=== PATIENT | male | born 1950 | race Two or more races ===

== ENCOUNTER 2024-03-22 12:25 | Outpatient (AMB) | payer MEDICARE, SELFPAY ==
[2024-03-22 12:34] VITALS: BP 120/70; PULSE 67; O2SAT 97; BMI 27.8
--- NOTE | 2024-03-22 12:34 | MHC.PC.OV ---
Vital Signs 03/22/24 12:34 Height 5 ft 3 in Weight 157 lb 2 oz BMI 27.8 BP 120/70 Blood Pressure Location Lt brachial Position Sitting Pulse 67 Pulse Source Pulse Oximeter Pulse Oximetry (%) 97 Oxygen Delivery Method Room Air Intake Visit Reasons: New Pt, est care Intake Note: Patient is here as a new patient looking to establish care. Rock Splitter Required: No Allergies No Known Allergies Allergy (Verified 03/22/24 12:56) Medication List - Last Reconciled 03/22/24 by MARÍA Noriega- aspirin 81 mg PO DAILY atorvastatin 80 mg PO DAILY glipizide 5 mg PO BID metformin 500 mg PO DAILY metoprolol tartrate 25 mg PO DAILY omeprazole 20 mg PO DAILY Tobacco use date assessed: 03/22/24 Fall risk assessment: No Falls in past year Last assessed Fall Risk: 03/22/24 Dental Screening Dental Screen Date: 03/22/24 Did you have a dental visit in the last 12 months?: No Did you have a dental problem in the last 6 months where you did not have access to dental care?: No Was dental information given to patient?: Yes HPI HPI Comments History of Present Illness Details 73-year-old male with chronic back pain with radiculopathy, DM2, diabetic nephropathy, CKD3a, HTN, carcinoma in situ of prostate, HLD, PVD, daily etoh use Health Maintenance: Colon reports done 1 year ago, reports WNL PSA managed by [facility] Specialists: Nephro Dr Gan [facility] last visit 2 months ago [facility] last visit 1 month ago, q 6 mo visits Opt - [facility], Dr Abreu -- reports exam in last year, negative for retinopathy - will request report Here today to establish care. Had a change of insurance and has old primary care provider which was through [facility] no longer accepts his insurance. He does provide me with an office note from February of 2023. Otherwise I do not have any records on him prior to today's visit. Be that as it may he seems to be a good historian. He reports that he takes all medications as directed. However has run out of some of his medications. He is active with his specialist. Does not need any referrals placed. It is overdue for blood tests in his willing to fasting get these done before the next office visit. [facility] Medical History (Updated 03/22/24 @ 15:37 by TODD Noriega) Radiculopathy affecting upper extremity Lumbar strain Sciatica, left side Diabetes Cervicalgia Surgical History History of prostate surgery Family History Father Diabetes Mother Diabetes Social History Household Members: Spouse Household Members Other:: dog Housing: Apartment Are you a primary primary care physician to a significant other at home: No Do you presently have visiting nurse or other home services: No 75 years or older and lives alone: No Alcohol intake: current Alcohol intake frequency: holidays/special occasions only Alcohol type: beer Patient Tobacco Use Status: Never used Tobacco e-Cigarette/Vaping Use: Never Used service: No Current occupational status: employed and retired 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 1. Little interest or pleasure in doing things: not at all 2. Feeling down, depressed, or hopeless: not at all 3. Trouble falling or staying asleep, or sleeping too much: not at all 4. Feeling tired or having little energy: not at all 5. Poor appetite or overeating: not at all 6. Feeling bad about yourself - or that you are a failure or have let yourself or your family down: not at all 7. Trouble concentrating on things, such as reading the newspaper or watching television: not at all 8. Moving or speaking so slowly that other people could have noticed. Or the opposite - being so fidgety or restless that you have been moving around a lot more than usual: not at all 9. Thoughts that you would be better off or of hurting yourself in some way: not at all Total score: 0 Depression Screening Interpretation: Negative Depression Screening Done: Yes 51566 - PHQ-9 Billing: Yes Source: Developed by Drs. Adeel Lal, Avani Romano, Zane Brown and colleagues, with an educational octavia from [employer]. Thrive Questionnaire I am a: Patient What is your living situation today?: I have a steady place to live Within the past 12 months, did the food you bought not last and you didn't have the money to get more?: Never true Within the past 12 months, did you worry whether your food would run out before you got money to buy more?: Never true Do you have trouble paying for medicines?: No Do you have trouble getting transportation to medical appointments?: No Do you have trouble paying your heating and electricity bill?: No Do you have trouble taking care of your child, family member or friend?: No Do you have trouble with day-to-day activities such as bathing, preparing meals, shopping, managing finances, etc.?: No Are you currently unemployed and looking for a job?: No Are you interested in more education?: No Please select the resources that you would like help with: None Currently or been in a relationship where the following occur: no concerns reported THRIVE Score: 0 AUDIT C Alcohol Use Questionnaire (AUDIT-C) 1. How often do you have a drink containing alcohol?: 4 or more times a week 2. How many drinks containing alcohol do you have on a typical day when you are drinking?: 3 or 4 3. How often do you have six or more drinks on one occasion?: Monthly Total Score: 7 Score Reviewed/Action Taken: Yes ZACH-7 AMB Questionnaire ZACH-7 Date ZACH - 7 assessed: 03/22/24 Feeling nervous, anxious, or on edge: 0 = Not at all Not being able to stop or control worryin = Not at all Worrying too much about different things: 0 = Not at all Trouble relaxin = Not at all Being so restless that it is hard to sit still: 0 = Not at all Becoming easily annoyed or irritable: 0 = Not at all Feeling afraid as if something awful might happen: 0 = Not at all Total ZACH-7 score (0-4 normal; 5-9 mild; 10-14 moderate; 15-21 severe): 0 Source: Developed by Avani Pinto Kurt Kroenke and colleagues, with an educational octavia from [employer]. ZACH-7 Assessment Billing ZACH-7 Assessment Tool: ZACH-7 Assessment 29414 Review of Systems Const All systems reviewed & are unremarkable except as noted in HPI and below Physical exam (Primary Care) Vital Signs: Last Vital Signs Pulse 67 03/22/24 12:34 BP 120/70 03/22/24 12:34 Pulse Ox 97 03/22/24 12:34 Oxygen Delivery Method Room Air 03/22/24 12:34 BMI result Body Mass Index 27.8 Tobacco/Smoking Status: Tobacco use Status Tobacco use date assessed 03/22/24 03/22/24 12:50 Patient Tobacco Use Status Never used Tobacco 03/22/24 12:50 e-Cigarette/Vaping Use Never Used 03/22/24 12:50 PHQ-9: PHQ-9 Score PHQ-9: Total score 0 03/22/24 13:15 Depression Screening Interpretation: Negative Currently or been in a relationship where the following occur: no concerns reported Const Other: awake alert, appears younger than stated age, very pleasant scleras nonicteric bilat RRR, 1/6 murmur left sternal border LS CTAB Abd soft, nontender BLE skin intact, hairless, varicose veins Assessment and Plan Assessment & Plan (1) Diabetes mellitus type 2 with complications: Comment: Patient wishes to have labs completed at [facility]. Hemoglobin A1c ordered today. At this time continue metformin 500 mg p.o. b.i.d.. Diabetic eye exam completed in 2022. Negative for retinopathy. Report requested. Code(s): E11.8 - Type 2 diabetes mellitus with unspecified complications (2) Hyperlipidemia: Comment: Goal LDL less than 70 currently on atorvastatin 80 mg p.o. daily. Update labs and return to office to discuss results and titrate statin to goal LDL. On daily aspirin 81 mg Code(s): E78.5 - Hyperlipidemia, unspecified Qualifiers: Hyperlipidemia type: mixed hyperlipidemia Qualified Code(s): E78.2 - Mixed hyperlipidemia (3) PVD (peripheral vascular disease): Comment: Based on physical exam. Skin intact. Continue statin, aspirin, blood pressure control, diabetes control. Code(s): I73.9 - Peripheral vascular disease, unspecified (4) Carcinoma in situ of prostate: Comment: Current, active, managed by [facility]. We will have to get records to further document. Code(s): D07.5 - Carcinoma in situ of prostate (5) Diabetes mellitus with stage 3a chronic kidney disease, without long-term current use of insulin: Comment: Followed by Nephrology. Update labs today. On losartan 25 mg p.o. daily continue Code(s): E11.22 - Type 2 diabetes mellitus with diabetic chronic kidney disease; N18.31 - Chronic kidney disease, stage 3a Qualifiers: Diabetes mellitus type: type 2 Qualified Code(s): E11.22 - Type 2 diabetes mellitus with diabetic chronic kidney disease; N18.31 - Chronic kidney disease, stage 3a (6) Hypertension complicating diabetes: Comment: Goal less than 130/80 currently at goal on metoprolol tartrate 25 mg p.o. b.i.d. and losartan 25 mg p.o. daily. Continue. Code(s): E11.59 - Type 2 diabetes mellitus with other circulatory complications; I15.2 - Hypertension secondary to endocrine disorders (7) EtOH dependence: Comment: Currently on thiamine and B12. Daily drinker. No complications at the current time. Code(s): F10.20 - Alcohol dependence, uncomplicated Qualifiers: Substance use status: uncomplicated Qualified Code(s): F10.20 - Alcohol dependence, uncomplicated Plan: This note is constructed using voice recognition software. While every effort has been made to ensure accuracy in petroleum inspector supervisor, still errors may have been included Sometimes, these errors may affect the content or meaning of the given sentence . Total time spent caring for the patient today was 60 minutes. This includes time spent before the visit reviewing the chart, time spent during the visit, and time spent after the visit on documentation Orders: Orders Lipid Panel Today E11.8 - Type 2 diabetes mellitus with unspecified complications Comprehensive [place]. Panel Fast Today E11.8 - Type 2 diabetes mellitus with unspecified complications TSH reflex Free T4 Today E11.8 - Type 2 diabetes mellitus with unspecified complications Vitamin D 1,25 dihydroxy Today E11.8 - Type 2 diabetes mellitus with unspecified complications Complete Blood Count no Diff Today E11.8 - Type 2 diabetes mellitus with unspecified complications Hemoglobin A1c Today E11.8 - Type 2 diabetes mellitus with unspecified complications Microalbumin, Random (w Creat) Today E11.8 - Type 2 diabetes mellitus with unspecified complications Vitamin B12 and Folate Today E11.8 - Type 2 diabetes mellitus with unspecified complications IRON PROFILE Today E11.8 - Type 2 diabetes mellitus with unspecified complications Medications: New magnesium oxide 400 mg PO DAILY 90 tabs 0RF thiamine HCl (vitamin B1) 100 mg PO DAILY 90 tabs 0RF losartan 25 mg PO DAILY 90 tabs 0RF cyanocobalamin (vitamin B-12) 2,000 mcg (2 x 1,000 mcg) PO DAILY 180 caps 0RF atorvastatin 80 mg PO DAILY 90 tabs 0RF metformin 500 mg PO BID 180 tabs 0RF Changed From metoprolol tartrate 25 mg PO DAILY To metoprolol tartrate 25 mg PO BID Patient Instructions: Return to office in 2-3 weeks to follow up on your lab results. If you are getting them done at an outside facility please be sure to bring a copy of the lab results with you. Take all medications as directed. Coding Level of Care Code New Pt Level 5 (55664) Diagnoses Diabetes mellitus type 2 with complications E11.8 Mixed hyperlipidemia E78.2 Hyperlipidemia type: mixed hyperlipidemia PVD (peripheral vascular disease) I73.9 Carcinoma in situ of prostate D07.5 Type 2 diabetes mellitus with stage 3a chronic kidney disease, without long-term current use of insulin E11.22; N18.31 Diabetes mellitus type: type 2 Hypertension complicating diabetes E11.59; I15.2 Uncomplicated alcohol dependence F10.20 Substance use status: uncomplicated Additional Codes ZACH-7 Assessment Billing - ZACH-7 Assessment Tool: ZACH-7 Assessment 09977 ([id number])
== END 2024-03-22 13:21 | disposition home or self-care (01) ==
PROVIDERS: PCP Nurse Practitioner Family; Visit Provider Nurse Practitioner Family
DX: E11.8 Type 2 diabetes mellitus with unspecified complications (principal); E11.22 Type 2 diabetes mellitus with diabetic chronic kidney disease; N18.31 Chronic kidney disease, stage 3a; I73.9 Peripheral vascular disease, unspecified; E11.59 Type 2 diabetes mellitus with other circulatory complications; F10.20 Alcohol dependence, uncomplicated; E78.2 Mixed hyperlipidemia; D07.5 Carcinoma in situ of prostate; I15.2 Hypertension secondary to endocrine disorders
CPT/HCPCS: 99215

== ENCOUNTER 2024-03-31 11:36 | Outpatient (REF) | payer MEDICARE, SELFPAY ==
[2024-03-31 14:38] LABS: Hematocrit 35.9 % (42.0-52.0); Hemoglobin 12.1 g/dl (14.0-18.0); Mean Corpuscular HGB Conc 33.7 g/dl (31.0-36.0); Mean Corpuscular Hemoglobin 31.5 pg (27.0-33.0); Mean Corpuscular Volume 93.5 fL (80.0-98.0); Platelet Count 237 X10*3/uL (160-400); Red Blood Count 3.84 X10*6/uL (4.60-5.80); Red Cell Distribution Width 12.4 % (11.0-16.0); White Blood Count 7.3 X10*3/uL (4.8-10.8)
[2024-03-31 14:49] LABS: Estimated Average Glucose 186 mg/dL; Hemoglobin A1c % 8.1 % (<6.0)
[2024-03-31 14:56] LABS: Alanine Aminotransferase 28 U/L (0-40); Albumin Level 4.3 g/dL (3.5-5.0); Alkaline Phosphatase 96 U/L (39-117); Anion Gap 13 (12-20); Aspartate Amino Transferase 54 U/L (5-37); Bilirubin Total 1.2 mg/dL (0.0-1.0); Blood Urea Nitrogen 17 mg/dL (9-16); Calcium 9.2 mg/dL (8.4-10.2); Carbon Dioxide 26 mmol/L (22-29); Chloride 104 mmol/L (96-108); Cholesterol 140 mg/dL (<200); Estimated Glomerular Filt Rate 57; Glucose Fasting 157 mg/dL (60-99); HDL Cholesterol 58 mg/dL (>40); Iron 113 mcg/dL (45-160); LDL Cholesterol Calculated 66 mg/dL (<100); Percent Iron Saturation 39 % (15-50); Potassium 4.1 mmol/L (3.3-5.1); Sodium 139 mmol/L (135-145); Total Iron Binding Capacity 289 mcg/dL (228-428); Total Protein 7.1 g/dL (6.5-8.0); Triglycerides 80 mg/dL (<150); Unsaturated Iron Binding 176 ug/dL
[2024-03-31 15:12] LABS: TSH reflex Free T4 2.51 uIU/mL (0.32-4.0)
[2024-03-31 15:19] LABS: Microalbum/Creatinine Ratio Ur 46.3 ug/mg cr (<30)
[2024-03-31 15:26] LABS: Folate 6.7 ng/mL (> or = 4.0); Vitamin B12 909 pg/mL (200-900)
[2024-04-04 16:08] LABS: VITAMIN D (1,25 OH) D3 50 pg/mL; Vit D (1,25-Dihydroxy) Total 50 pg/mL (18-72); Vitamin D (1,25 OH) D2 <8 pg/mL
== END 2024-03-31 11:37 | disposition home or self-care (01) ==
LOC: HO.WFDLDS 11:36
PROVIDERS: Visit Provider Nurse Practitioner Family
DX: E11.8 Type 2 diabetes mellitus with unspecified complications (principal)
CPT/HCPCS: 36415; 80053; 80061; 82043; 82570; 82607; 82652; 82746; 83036; 83540; 84443; 85027

== ENCOUNTER 2024-04-07 09:32 | Outpatient (AMB) | payer MEDICARE, SELFPAY ==
--- NOTE | 2024-04-07 09:37 | A.OFFPC_ITS ---
Vital Signs 04/07/24 09:38 Height 5 ft 3 in Weight 156 lb BMI 27.6 BP 124/70 Blood Pressure Location Rt brachial Position Sitting Respiration 14 Pulse 71 Pulse Source Pulse Oximeter Temp 97.7 F Temp Source Temporal Artery Scan Pulse Oximetry (%) 99 Oxygen Delivery Method Room Air Intake Visit Reasons: 2 weeks w me 30 min fu labs Bit Welder Required: No Accompanied by: Self / Same As Patient Allergies No Known Allergies Allergy (Verified 04/07/24 10:13) Medication List - Last Reconciled 04/07/24 by Ann Carr, ROLL FORM OPERATOR- aspirin 81 mg PO DAILY atorvastatin 80 mg PO DAILY cyanocobalamin (vitamin B-12) 2,000 mcg (2 x 1,000 mcg) PO DAILY losartan 25 mg PO DAILY magnesium oxide 400 mg PO DAILY metformin 500 mg PO BID metoprolol tartrate 25 mg PO BID omeprazole 20 mg PO DAILY thiamine HCl (vitamin B1) 100 mg PO DAILY Tobacco use date assessed: 03/22/24 Last assessed Fall Risk: 04/07/24 Dental Screening Dental Screen Date: 03/22/24 HPI HPI Comments History of Present Illness Details 73-year-old male with chronic back pain with radiculopathy, DM2, diabetic nephropathy, CKD3a, HTN, carcinoma in situ of prostate, HLD, PVD, daily etoh us e, b12 def, iron def anemia Health Maintenance: Colon reports done 1 year ago, reports WNL PSA managed by [facility] Specialists: Nephro Dr Gan [facility] last visit 2 months ago [facility] last visit 1 month ago, q 6 mo visits [facility], Dr Abreu -- reports exam in last year, negative for retinopathy - will request report Here today to follow up on chronic conditions as well as review his labs. Labs were lower reviewed with him today. He reports tolerance and compliance with all of his medications since last office visit. Labs from 03/31/2024 show low anemia RBC 3.84, hemoglobin 12.1, hematocrit 35.9, remote MCV, RDW, normal iron profile normal lytes, BUN 17, creatinine 1.24, EGFR 57, hemoglobin A1c 8.1%, elevated total bilirubin 1.2, AST elevated 54, normal ALT 28, normal alk phos, normal lipid profile with LDL 66, B12 909, normal folate, TSH within normal limits, elevated urine microalbumin creatinine ratio of 46.3, vitamin-D normal Plan I would like to start him on Farxiga or Jardiance for renal protection however his insurance does not cover this medication. He has already on an Arb. He is managed by Nephrology routinely. The goal will be to continue to control his diabetes. The A1c is 8.1%. On metformin 500 mg p.o. b.i.d.. He has been without his diabetic medications for a few weeks prior to the lab draw. Therefore I would suspect that his A1c is actually better than this. However this A1c is also in the setting of anemia. He has known B12 deficiency. He has taking a vitamin B12 supplement as ordered. Well as iron profile is normal he does have anemia. This certainly could be anemia of chronic disease versus iron deficiency. I will trial him on iron. Advised him to titrate to reduce abdominal symptoms. otherwise cont all meds as directed. Repeat fasting labs 1 week before his next office visit which will be in about 4 months. Return to the office sooner should you need anything. [facility] Medical History Radiculopathy affecting upper extremity Lumbar strain Sciatica, left side Diabetes Cervicalgia Surgical History History of prostate surgery Family History Father Diabetes Mother Diabetes Social History Household Members: Spouse Household Members Other:: dog Housing: Apartment Are you a primary care consultant to a significant other at home: No Do you presently have visiting nurse or other home services: No 75 years or older and lives alone: No Alcohol intake: current Alcohol intake frequency: holidays/special occasions only Alcohol type: beer Patient Tobacco Use Status: Never used Tobacco e-Cigarette/Vaping Use: Never Used service: No Current occupational status: employed and retired 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 Adeel Lal, Avani Romano, Zane Brown and colleagues, with an educational octavia from [employer]. Review of Systems Const All systems reviewed & are unremarkable except as noted in HPI and below Physical exam (Primary Care) Vital Signs: Last Vital Signs Temp 97.7 F 04/07/24 09:38 Pulse 71 04/07/24 09:38 Resp 14 04/07/24 09:38 BP 124/70 04/07/24 09:38 Pulse Ox 99 04/07/24 09:38 Oxygen Delivery Method Room Air 04/07/24 09:38 BMI result Body Mass Index 27.6 Tobacco/Smoking Status: Tobacco use Status Tobacco use date assessed 03/22/24 04/07/24 09:44 Patient Tobacco Use Status Never used Tobacco 04/07/24 09:44 e-Cigarette/Vaping Use Never Used 04/07/24 09:44 Const Other: awake alert, appears younger than stated age, very pleasant scleras nonicteric bilat RRR, 1/6 murmur left sternal border LS CTAB Abd soft, nontender BLE skin intact, hairless, varicose veins Assessment and Plan Assessment & Plan (1) Diabetes mellitus type 2 with complications: Comment: At this time continue metformin 500 mg p.o. b.i.d.. Diabetic eye exam completed in 2022. Negative for retinopathy. Report requested. Code(s): E11.8 - Type 2 diabetes mellitus with unspecified complications (2) Hyperlipidemia: Comment: Goal LDL less than 70 currently on atorvastatin 80 mg p.o. daily. On daily aspirin 81 mg Code(s): E78.5 - Hyperlipidemia, unspecified Qualifiers: Hyperlipidemia type: mixed hyperlipidemia Qualified Code(s): E78.2 - Mixed hyperlipidemia (3) Diabetes mellitus with stage 3a chronic kidney disease, without long-term current use of insulin: Comment: Followed by Nephrology. On losartan 25 mg p.o. daily continue Code(s): E11.22 - Type 2 diabetes mellitus with diabetic chronic kidney disease; N18.31 - Chronic kidney disease, stage 3a Qualifiers: Diabetes mellitus type: type 2 Qualified Code(s): E11.22 - Type 2 diabetes mellitus with diabetic chronic kidney disease; N18.31 - Chronic kidney disease, stage 3a (4) Hypertension complicating diabetes: Comment: Goal less than 130/80 currently at goal on metoprolol tartrate 25 mg p.o. b.i.d. and losartan 25 mg p.o. daily. Continue. Code(s): E11.59 - Type 2 diabetes mellitus with other circulatory complications; I15.2 - Hypertension secondary to endocrine disorders (5) B12 deficiency: Code(s): E53.8 - Deficiency of other specified B group vitamins (6) Iron deficiency anemia: Code(s): D50.9 - Iron deficiency anemia, unspecified Qualifiers: Iron deficiency anemia type: other iron deficiency Qualified Code(s): D50.8 - Other iron deficiency anemias Orders: Orders Comprehensive [place]. Panel Fast 06/26/24 D50.9 - Iron deficiency anemia, unspecified, E11.22 - Type 2 diabetes mellitus with diabetic chronic kidney disease, E11.59 - Type 2 diabetes mellitus with other circulatory complications, E11.8 - Type 2 diabetes mellitus with unspecified complications, E53.8 - Deficiency of other specified B group vitamins, E78.2 - Mixed hyperlipidemia, I15.2 - Hypertension secondary to endocrine disorders, N18.31 - Chronic kidney disease, stage 3a IRON PROFILE 06/26/24 D50.9 - Iron deficiency anemia, unspecified, E11.22 - Type 2 diabetes mellitus with diabetic chronic kidney disease, E11.59 - Type 2 diabetes mellitus with other circulatory complications, E11.8 - Type 2 diabetes mellitus with unspecified complications, E53.8 - Deficiency of other specified B group vitamins, E78.2 - Mixed hyperlipidemia, I15.2 - Hypertension secondary to endocrine disorders, N18.31 - Chronic kidney disease, stage 3a Vitamin B12 and Folate 06/26/24 D50.9 - Iron deficiency anemia, unspecified, E11.22 - Type 2 diabetes mellitus with diabetic chronic kidney disease, E11.59 - Type 2 diabetes mellitus with other circulatory complications, E11.8 - Type 2 diabetes mellitus with unspecified complications, E53.8 - Deficiency of other specified B group vitamins, E78.2 - Mixed hyperlipidemia, I15.2 - Hypertension secondary to endocrine disorders, N18.31 - Chronic kidney disease, stage 3a Lipid Panel 06/26/24 D50.9 - Iron deficiency anemia, unspecified, E11.22 - Type 2 diabetes mellitus with diabetic chronic kidney disease, E11.59 - Type 2 diabetes mellitus with other circulatory complications, E11.8 - Type 2 diabetes mellitus with unspecified complications, E53.8 - Deficiency of other specified B group vitamins, E78.2 - Mixed hyperlipidemia, I15.2 - Hypertension secondary to endocrine disorders, N18.31 - Chronic kidney disease, stage 3a Hemoglobin A1c 06/26/24 D50.9 - Iron deficiency anemia, unspecified, E11.22 - Type 2 diabetes mellitus with diabetic chronic kidney disease, E11.59 - Type 2 diabetes mellitus with other circulatory complications, E11.8 - Type 2 diabetes mellitus with unspecified complications, E53.8 - Deficiency of other specified B group vitamins, E78.2 - Mixed hyperlipidemia, I15.2 - Hypertension secondary to endocrine disorders, N18.31 - Chronic kidney disease, stage 3a Complete Blood Count no Diff 06/26/24 D50.9 - Iron deficiency anemia, unspecified, E11.22 - Type 2 diabetes mellitus with diabetic chronic kidney disease, E11.59 - Type 2 diabetes mellitus with other circulatory complications, E11.8 - Type 2 diabetes mellitus with unspecified complications, E53.8 - Deficiency of other specified B group vitamins, E78.2 - Mixed hyperlipidemia, I15.2 - Hypertension secondary to endocrine disorders, N18.31 - Chronic kidney disease, stage 3a Medications: New ferrous sulfate 325 mg PO DAILY 90 tabs 0RF Patient Instructions: Plan I would like to start him on Farxiga or Jardiance for renal protection however his insurance does not cover this medication. He has already on an Arb. He is managed by Nephrology routinely. The goal will be to continue to control his diabetes. The A1c is 8.1%. On metformin 500 mg p.o. b.i.d.. He has been without his diabetic medications for a few weeks prior to the lab draw. Therefore I would suspect that his A1c is actually better than this. However this A1c is also in the setting of anemia. He has known B12 deficiency. He has taking a vitamin B12 supplement as ordered. Well as iron profile is normal he does have anemia. This certainly could be anemia of chronic disease versus iron deficiency. I will trial him on iron. Advised him to titrate to reduce abdominal symptoms. otherwise cont all meds as directed. Repeat fasting labs 1 week before his next office visit which will be in about 4 months. Return to the office sooner should you need anything. RTO 4 months, with fasting labs done 1 week before next appt New medication: Ferrous Sulfate to treat anemia. Take every day with food. This can cause stomach upset. If this happens, reduce the frequency. Otherwise cont all meds as directed. Coding Level of Care Code Est Pt Level 4 (08818) Diagnoses Diabetes mellitus type 2 with complications E11.8 Mixed hyperlipidemia E78.2 Hyperlipidemia type: mixed hyperlipidemia Type 2 diabetes mellitus with stage 3a chronic kidney disease, without long-term current use of insulin E11.22; N18.31 Diabetes mellitus type: type 2 Hypertension complicating diabetes E11.59; I15.2 B12 deficiency E53.8 Other iron deficiency anemia D50.8 Iron deficiency anemia type: other iron deficiency
[2024-04-07 09:38] VITALS: BP 124/70; PULSE 71; RESP 14; TEMP 36.5; O2SAT 99; BMI 27.6
== END 2024-04-07 10:25 | disposition home or self-care (01) ==
PROVIDERS: PCP Nurse Practitioner Family; Visit Provider Nurse Practitioner Family
DX: E11.8 Type 2 diabetes mellitus with unspecified complications (principal); E11.22 Type 2 diabetes mellitus with diabetic chronic kidney disease; N18.31 Chronic kidney disease, stage 3a; E11.59 Type 2 diabetes mellitus with other circulatory complications; E78.2 Mixed hyperlipidemia; I15.2 Hypertension secondary to endocrine disorders; E53.8 Deficiency of other specified B group vitamins; D50.8 Other iron deficiency anemias
CPT/HCPCS: 99214

== ENCOUNTER 2024-05-01 12:42 | Outpatient (AMB) | payer MEDICARE, SELFPAY ==
--- NOTE | 2024-05-01 12:49 | A.OFFPC_ITS ---
Vital Signs 05/01/24 12:54 05/01/24 12:58 Height 5 ft 3 in Weight 157 lb 4 oz BMI 27.9 BP 142/60 H 146/62 H Blood Pressure Location Rt brachial Rt brachial Position Sitting Sitting Respiration 16 Pulse 85 Pulse Source Pulse Oximeter Pulse Oximetry (%) 98 Oxygen Delivery Method Room Air Intake Visit Reasons: Pimple on body Intake Note: Pimple right side, lower back. Table Machine Operator Required: No Allergies No Known Allergies Allergy (Verified 05/01/24 13:06) Medication List - Last Reconciled 05/01/24 by Ann Carr, UNARMED SECURITY GUARD- aspirin 81 mg PO DAILY atorvastatin 80 mg PO DAILY cyanocobalamin (vitamin B-12) 2,000 mcg (2 x 1,000 mcg) PO DAILY ferrous sulfate 325 mg PO DAILY losartan 25 mg PO DAILY magnesium oxide 400 mg PO DAILY melatonin 3 mg PO BEDTIME PRN metformin 500 mg PO BID metoprolol tartrate 25 mg PO BID omeprazole 20 mg PO DAILY thiamine HCl (vitamin B1) 100 mg PO DAILY Tobacco use date assessed: 03/22/24 Fall risk assessment: No Falls in past year Last assessed Fall Risk: 05/01/24 Dental Screening Dental Screen Date: 03/22/24 HPI HPI Comments History of Present Illness Details Here today with complaints a bump on the right side of his rectum. Noticed about 3 weeks ago. The area is not painful. Has been monitoring it and feels like the area has gotten smaller. Reports he has never had anything like this happen before. He denies constitutional symptoms. No at home remedies tried. Exam: offered and declined electrical systems engineer 1 external hemorrhoid, nonthrombosed at 12 oclock position, attempt to manually reduce unsuccessful Plan Education handout provided along w/ reassurance. If cont to be bothersome, RTO and can discuss other tx alternatives. However at this time, it is not bothersome. This note is constructed using voice recognition software. While every effort has been made to ensure accuracy in transfusion nurse, still errors may have been included Sometimes, these errors may affect the content or meaning of the given sentence . [facility] Medical History Radiculopathy affecting upper extremity Lumbar strain Sciatica, left side Diabetes Cervicalgia Surgical History History of prostate surgery Family History Father Diabetes Mother Diabetes Social History Household Members: Spouse Household Members Other:: dog Housing: Apartment Are you a primary rn managed care to a significant other at home: No Do you presently have visiting nurse or other home services: No 75 years or older and lives alone: No Alcohol intake: current Alcohol intake frequency: holidays/special occasions only Alcohol type: beer Patient Tobacco Use Status: Never used Tobacco e-Cigarette/Vaping Use: Never Used service: No Current occupational status: employed and retired 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 Adeel Lal, Avani Romano, Zane Brown and colleagues, with an educational octavia from [employer]. Physical exam (Primary Care) Vital Signs: Last Vital Signs Pulse 85 05/01/24 12:54 Resp 16 05/01/24 12:54 BP 146/62 H 05/01/24 12:58 Pulse Ox 98 05/01/24 12:54 Oxygen Delivery Method Room Air 05/01/24 12:54 BMI result Body Mass Index 27.9 Tobacco/Smoking Status: Tobacco use Status Tobacco use date assessed 03/22/24 05/01/24 12:53 Patient Tobacco Use Status Never used Tobacco 05/01/24 12:53 e-Cigarette/Vaping Use Never Used 05/01/24 12:53 Assessment and Plan Assessment & Plan (1) Hemorrhoid: Code(s): K64.9 - Unspecified hemorrhoids Qualifiers: Hemorrhoid type: first degree Qualified Code(s): K64.0 - First degree hemorrhoids Coding Level of Care Code Est Pt Level 3 (71934) Diagnoses Grade I hemorrhoids K64.0 Hemorrhoid type: first degree
[2024-05-01 12:54] VITALS: BP 142/60; PULSE 85; RESP 16; O2SAT 98; BMI 27.9
[2024-05-01 12:58] VITALS: BP 146/62
== END 2024-05-01 14:47 | disposition home or self-care (01) ==
PROVIDERS: PCP Nurse Practitioner Family; Visit Provider Nurse Practitioner Family
DX: K64.0 First degree hemorrhoids (principal)
CPT/HCPCS: 99213

== ENCOUNTER 2024-07-14 11:06 | Outpatient (REF) | payer MEDICARE, SELFPAY ==
[2024-07-14 14:29] LABS: Hematocrit 39.4 % (42.0-52.0); Hemoglobin 13.2 g/dl (14.0-18.0); Mean Corpuscular HGB Conc 33.5 g/dl (31.0-36.0); Mean Corpuscular Hemoglobin 32.4 pg (27.0-33.0); Mean Corpuscular Volume 96.6 fL (80.0-98.0); Platelet Count 273 X10*3/uL (160-400); Red Blood Count 4.08 X10*6/uL (4.60-5.80); Red Cell Distribution Width 12.4 % (11.0-16.0); White Blood Count 6.9 X10*3/uL (4.8-10.8)
[2024-07-14 14:32] LABS: Estimated Average Glucose 169 mg/dL; Hemoglobin A1c % 7.5 % (<6.0)
[2024-07-14 15:02] LABS: Alanine Aminotransferase 29 U/L (0-40); Albumin Level 4.5 g/dL (3.5-5.0); Alkaline Phosphatase 91 U/L (39-117); Anion Gap 14 (12-20); Aspartate Amino Transferase 42 U/L (5-37); Bilirubin Total 1.3 mg/dL (0.0-1.0); Blood Urea Nitrogen 23 mg/dL (9-16); Calcium 9.9 mg/dL (8.4-10.2); Carbon Dioxide 25 mmol/L (22-29); Chloride 101 mmol/L (96-108); Cholesterol 165 mg/dL (<200); Estimated Glomerular Filt Rate 40; Glucose Fasting 217 mg/dL (60-99); HDL Cholesterol 62 mg/dL (>40); Iron 113 mcg/dL (45-160); LDL Cholesterol Calculated 81 mg/dL (<100); Percent Iron Saturation 36 % (15-50); Potassium 4.7 mmol/L (3.3-5.1); Sodium 135 mmol/L (135-145); Total Iron Binding Capacity 313 mcg/dL (228-428); Total Protein 7.4 g/dL (6.5-8.0); Triglycerides 113 mg/dL (<150); Unsaturated Iron Binding 200 ug/dL
[2024-07-14 15:18] LABS: Folate 11.1 ng/mL (> or = 4.0); Vitamin B12 448 pg/mL (200-900)
== END 2024-07-14 11:07 | disposition home or self-care (01) ==
LOC: HO.WFDLDS 11:06
PROVIDERS: Visit Provider Nurse Practitioner Family
DX: E11.59 Type 2 diabetes mellitus with other circulatory complications (principal); I25.2 Old myocardial infarction; E11.22 Type 2 diabetes mellitus with diabetic chronic kidney disease; N18.31 Chronic kidney disease, stage 3a; E78.2 Mixed hyperlipidemia; E11.8 Type 2 diabetes mellitus with unspecified complications; E53.8 Deficiency of other specified B group vitamins; D50.9 Iron deficiency anemia, unspecified
CPT/HCPCS: 36415; 80053; 80061; 82607; 82746; 83036; 83540; 85027

== ENCOUNTER 2024-07-19 10:16 | Outpatient (AMB) | payer MEDICARE, SELFPAY ==
--- NOTE | 2024-07-19 10:17 | A.OFFPC_ITS ---
Vital Signs 07/19/24 10:21 Height 5 ft 3 in Weight 164 lb 8 oz BMI 29.1 BP 132/72 Blood Pressure Location Lt brachial Position Sitting Respiration 14 Pulse 79 Pulse Source Pulse Oximeter Temp 98.0 F Temp Source Oral Pulse Oximetry (%) 98 Oxygen Delivery Method Room Air Intake Visit Reasons: 30 min 4 months DM + chronic dz mgmt Intake Note: follow up Allergies No Known Allergies Allergy (Verified 07/19/24 10:20) Medication List - Last Reconciled 07/19/24 by Ann Carr, NUT THREADER- aspirin 81 mg PO DAILY atorvastatin 80 mg PO DAILY cyanocobalamin (vitamin B-12) 2,000 mcg (2 x 1,000 mcg) PO DAILY ferrous sulfate 325 mg PO DAILY losartan 25 mg PO DAILY magnesium oxide 400 mg PO DAILY melatonin 3 mg PO BEDTIME PRN metformin 500 mg PO BID metoprolol tartrate 25 mg PO BID omeprazole 20 mg PO DAILY 90 days thiamine HCl (vitamin B1) 100 mg PO DAILY Tobacco use date assessed: 03/22/24 Dental Screening Dental Screen Date: 03/22/24 HPI HPI Comments History of Present Illness Details 73-year-old male with chronic back pain with radiculopathy, DM2, diabetic nephropathy, CKD3a, HTN, carcinoma in situ of prostate, HLD, PVD, daily etoh use, b12 def, iron def anemia Health Maintenance: Colon reports done 1 year ago, reports WNL PSA managed by [facility] Tdap UTD Specialists: Nephro Dr Gan [facility] last visit 2 months ago [facility] last visit 1 month ago, q 6 mo visits Optho - [facility], Dr Abreu -- reports exam in last year, negative for retinopathy - 2021 exam rec'd negative for retinopathy Here today for routine fu of chronic conditions Tolerant and compliant of all medications. Needs a new glucometer Reviewed w/ him in detail today: Labs from 07/14/2024 show improving anemia, normal iron profile, normal electrolytes but worsening renal function BUN 23 creatinine 1.71 GFR 40, his BUN was 17, creatinine 1.2 for an EGFR 57 in March, fasting glucose is 217 however his A1c has improved now 7.5%, it was 8.1% in March, elevated bilirubin which is stable, improvement in the LFT elevation AST 42 was 54 in March, normal ALT and alk phos, lipid profile at goal, B12 and folate normal New c/o tinnitus in R ear, on and off for years. Saw ENT x 2. Wears ear phone w music at HS to sleep + effect. Would like his ear looked at today to make sure there is nothing else going on. Rash on right side of belly, started 1 mo ago. Itchy. has been applying TAB and hydrocortisone Cannot recall any known allergic exposures. Exam: awake alert, appears younger than stated age, very pleasant scleras nonicteric bilat no carotid bruit bilat RRR, 1/6 murmur left sternal border LS CTAB Abd soft, nontender, right lateral aspect of abd is a pink macular rash w/ some secondary excoriations BLE skin intact, hairless, varicose veins Plan: Given the change in his renal function w/o known cause at this time, i have advised him to liberally hydrate and repeat labs in about 2 weeks. Otherwise his other labs look good. He should cont to take all meds as currently prescribed. Add topical betamethasone to treat rash on abd x 2 weeks. I will fu with him via phone in 2 weeks to review his repeat labs and to see if the rash is better. If rash cont, will refer to Derm If renal functions not improved, may need to refer to Renal for sooner appt. He will be due for his AWV in September. This note is constructed using voice recognition software. While every effort has been made to ensure accuracy in memory care program director, still errors may have been included Sometimes, these errors may affect the content or meaning of the given sentence . Total time spent caring for the patient today was 40 minutes. This includes time spent before the visit reviewing the chart, time spent during the visit, and time spent after the visit on documentation [facility] Medical History Radiculopathy affecting upper extremity Lumbar strain Sciatica, left side Diabetes Cervicalgia Surgical History History of prostate surgery Family History Father Diabetes Mother Diabetes Social History Household Members: Spouse Household Members Other:: dog Housing: Apartment Are you a primary neonatal intensive care nurse to a significant other at home: No Do you presently have visiting nurse or other home services: No 75 years or older and lives alone: No Alcohol intake: current Alcohol intake frequency: holidays/special occasions only Alcohol type: beer Patient Tobacco Use Status: Never used Tobacco e-Cigarette/Vaping Use: Never Used service: No Current occupational status: employed and retired 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 Adeel Lal, Avani Romano, Zane Brown and colleagues, with an educational octavia from [email or web address]. Physical exam (Primary Care) Vital Signs: Last Vital Signs Temp 98.0 F 07/19/24 10:21 Pulse 79 07/19/24 10:21 Resp 14 07/19/24 10:21 BP 132/72 07/19/24 10:21 Pulse Ox 98 07/19/24 10:21 Oxygen Delivery Method Room Air 07/19/24 10:21 BMI result Body Mass Index 29.1 Tobacco/Smoking Status: Tobacco use Status Tobacco use date assessed 03/22/24 07/19/24 10:20 Patient Tobacco Use Status Never used Tobacco 07/19/24 10:20 e-Cigarette/Vaping Use Never Used 07/19/24 10:20 Assessment and Plan Assessment & Plan (1) Diabetes mellitus type 2 with complications: Comment: At this time continue metformin 500 mg p.o. b.i.d.. Diabetic eye exam completed in 2022. Negative for retinopathy. Code(s): E11.8 - Type 2 diabetes mellitus with unspecified complications (2) Hypertension complicating diabetes: Comment: Goal less than 130/80 currently at goal on metoprolol tartrate 25 mg p.o. b.i.d. and losartan 25 mg p.o. daily. Continue. Code(s): E11.59 - Type 2 diabetes mellitus with other circulatory complications; I15.2 - Hypertension secondary to endocrine disorders (3) B12 deficiency: Code(s): E53.8 - Deficiency of other specified B group vitamins (4) Iron deficiency anemia: Code(s): D50.9 - Iron deficiency anemia, unspecified Qualifiers: Iron deficiency anemia type: other iron deficiency Qualified Code(s): D50.8 - Other iron deficiency anemias (5) Diabetes mellitus with stage 3a chronic kidney disease, without long-term current use of insulin: Comment: Followed by Nephrology. On losartan 25 mg p.o. daily continue Code(s): E11.22 - Type 2 diabetes mellitus with diabetic chronic kidney disease; N18.31 - Chronic kidney disease, stage 3a Qualifiers: Diabetes mellitus type: type 2 Qualified Code(s): E11.22 - Type 2 diabetes mellitus with diabetic chronic kidney disease; N18.31 - Chronic kidney disease, stage 3a (6) PVD (peripheral vascular disease): Comment: Based on physical exam. Skin intact. Continue statin, aspirin, blood pressure control, diabetes control. Code(s): I73.9 - Peripheral vascular disease, unspecified (7) Hyperlipidemia: Comment: Goal LDL less than 70 currently on atorvastatin 80 mg p.o. daily. On daily aspirin 81 mg Code(s): E78.5 - Hyperlipidemia, unspecified Qualifiers: Hyperlipidemia type: mixed hyperlipidemia Qualified Code(s): E78.2 - Mixed hyperlipidemia (8) Localized macular rash: Code(s): R21 - Rash and other nonspecific skin eruption Orders: Orders Comprehensive Met. Panel 07/31/24 E11.59 - Type 2 diabetes mellitus with other circulatory complications, I15.2 - Hypertension secondary to endocrine disorders Medications: New metoprolol tartrate 25 mg PO BID 90 tabs 2RF blood sugar diagnostic (FreeStyle Lite Strips) As directed 100 ea 11RF E11.8 - Type 2 diabetes mellitus with unspecified complications lancets (FreeStyle Lancets) As directed 100 ea 11RF E11.8 - Type 2 diabetes mellitus with unspecified complications betamethasone dipropionate 0.05% for 2 weeks 1 appl topical BID PRN 45 grams 0RF skin irritation blood-glucose meter (FreeStyle Lite Meter kit) As directed 1 ea 0RF E11.8 - Type 2 diabetes mellitus with unspecified complications Refilled atorvastatin 80 mg PO DAILY 90 tabs 0RF ferrous sulfate 325 mg PO DAILY 90 tabs 2RF metformin 500 mg PO BID 180 tabs 2RF thiamine HCl (vitamin B1) 100 mg PO DAILY 90 tabs 2RF cyanocobalamin (vitamin B-12) 2,000 mcg (2 x 1,000 mcg) PO DAILY 180 caps 2RF losartan 25 mg PO DAILY 90 tabs 2RF omeprazole 20 mg PO DAILY 90 days 90 caps 2RF Coding Level of Care Code Est Pt Level 5 (95616) Complex EM visit Add On G2211 Diagnoses Diabetes mellitus type 2 with complications E11.8 Hypertension complicating diabetes E11.59; I15.2 B12 deficiency E53.8 Other iron deficiency anemia D50.8 Iron deficiency anemia type: other iron deficiency Type 2 diabetes mellitus with stage 3a chronic kidney disease, without long-term current use of insulin E11.22; N18.31 Diabetes mellitus type: type 2 PVD (peripheral vascular disease) I73.9 Mixed hyperlipidemia E78.2 Hyperlipidemia type: mixed hyperlipidemia Localized macular rash R21
[2024-07-19 10:21] VITALS: BP 132/72; PULSE 79; RESP 14; TEMP 36.7; O2SAT 98; BMI 29.1
== END 2024-07-19 11:03 | disposition home or self-care (01) ==
PROVIDERS: PCP Nurse Practitioner Family; Visit Provider Nurse Practitioner Family
DX: E11.8 Type 2 diabetes mellitus with unspecified complications (principal); E11.59 Type 2 diabetes mellitus with other circulatory complications; E11.22 Type 2 diabetes mellitus with diabetic chronic kidney disease; I73.9 Peripheral vascular disease, unspecified; N18.31 Chronic kidney disease, stage 3a; I15.2 Hypertension secondary to endocrine disorders; E53.8 Deficiency of other specified B group vitamins; D50.8 Other iron deficiency anemias; E78.2 Mixed hyperlipidemia; R21 Rash and other nonspecific skin eruption

== ENCOUNTER → 2024-07-19 10:16 | Outpatient (BNVA) | payer MEDICARE, SELFPAY | PROVIDERS: PCP Nurse Practitioner Family; Visit Provider Nurse Practitioner Family | DX: I15.2 Hypertension secondary to endocrine disorders (principal); E11.59 Type 2 diabetes mellitus with other circulatory complications; E11.22 Type 2 diabetes mellitus with diabetic chronic kidney disease; N18.31 Chronic kidney disease, stage 3a; D50.8 Other iron deficiency anemias; E53.8 Deficiency of other specified B group vitamins; I73.9 Peripheral vascular disease, unspecified; E78.2 Mixed hyperlipidemia; R21 Rash and other nonspecific skin eruption | CPT/HCPCS: 99212 ==

== ENCOUNTER 2024-08-01 11:41 | Outpatient (REF) | payer MEDICARE, SELFPAY ==
[2024-08-01 14:48] LABS: Alanine Aminotransferase 40 U/L (0-40); Alkaline Phosphatase 136 U/L (39-117); Anion Gap 10 (12-20); Aspartate Amino Transferase 61 U/L (5-37); Bilirubin Total 0.6 mg/dL (0.0-1.0); Blood Urea Nitrogen 18 mg/dL (9-16); Calcium 10.1 mg/dL (8.4-10.2); Carbon Dioxide 27 mmol/L (22-29); Chloride 100 mmol/L (96-108); Estimated Glomerular Filt Rate 40; Potassium 4.3 mmol/L (3.3-5.1); Sodium 133 mmol/L (135-145); Total Protein 7.6 g/dL (6.5-8.0)
[2024-08-01 14:51] LABS: Glucose Random 380 mg/dL (60-115)
== END 2024-08-01 11:42 | disposition home or self-care (01) ==
LOC: HO.WFDLDS 11:41
PROVIDERS: Visit Provider Nurse Practitioner Family
DX: E11.59 Type 2 diabetes mellitus with other circulatory complications (principal); I15.2 Hypertension secondary to endocrine disorders
CPT/HCPCS: 36415; 80053

== ENCOUNTER 2024-08-07 11:24 | Outpatient (AMB) | payer MEDICARE, SELFPAY ==
--- NOTE | 2024-08-07 11:41 | MHC.PC.OV ---
Vital Signs 08/07/24 11:45 Height 5 ft 3 in Weight 160 lb 2 oz BMI 28.4 BP 122/70 Blood Pressure Location Rt brachial Position Sitting Respiration 14 Pulse 68 Pulse Source Pulse Oximeter Pulse Oximetry (%) 96 Oxygen Delivery Method Room Air Intake Visit Reasons: 2 weeks fu rash/ Intake Note: follow up on rash, patient reports rash is better. Allergies No Known Allergies Allergy (Verified 08/07/24 12:12) Medication List - Last Reconciled 08/07/24 by MARÍA Noriega- aspirin 81 mg PO DAILY atorvastatin 80 mg PO DAILY betamethasone dipropionate 0.05% 1 appl topical BID PRN blood sugar diagnostic (FreeStyle Lite Strips) As directed blood-glucose meter (FreeStyle Lite Meter kit) As directed cyanocobalamin (vitamin B-12) 2,000 mcg (2 x 1,000 mcg) PO DAILY ferrous sulfate 325 mg PO DAILY glyburide 2.5 mg PO BID lancets (FreeStyle Lancets) As directed losartan 25 mg PO DAILY magnesium aspart,citrate,oxide mg PO magnesium oxide 400 mg PO DAILY melatonin 3 mg PO BEDTIME PRN metformin 500 mg PO BID metoprolol tartrate 25 mg PO BID omeprazole 20 mg PO DAILY 90 days thiamine HCl (vitamin B1) 100 mg PO DAILY Tobacco use date assessed: 03/22/24 Dental Screening Dental Screen Date: 03/22/24 HPI HPI Comments History of Present Illness Details 73-year-old male with chronic back pain with radiculopathy, DM2, diabetic nephropathy, CKD3a, HTN, carcinoma in situ of prostate, HLD, PVD, daily etoh use, b12 def, iron def anemia Health Maintenance: Colon reports done 1 year ago, reports WNL PSA managed by [facility] Tdap UTD Specialists: Nephro Dr Gan [facility] last visit 2 months ago [facility] last visit 1 month ago, q 6 mo visits Opt - [facility], Dr Abreu -- reports exam in last year, negative for retinopathy - 2021 exam rec'd negative for retinopathy Here today for close interim follow up At the last office visit his routine labs showed elevation in his renal function He was advised to hydrate liberally and repeat his labs All his renal functions did improve they still remain above his baseline. He was also noted to have a random glucose of 380 mg/dL Reviewed this with him in detail today. He reports that he is monitoring his blood sugars at home and is also noted them to be higher than usual. He is unsure why. He reports that he is no longer drinking any alcohol. Denies any changes in his diet. He feels great. Reports drinking enough water. Reports seeing all of his medications as directed. Denies any dnle-jie-hlrrxmt medications. Reports normal elimination When asked about next appt w/ Renal. After research, he is not seeing Dr Gan anymore d/t insurance. He is seeing [facility] in [place]. In regards to the rash in the right side of his abdomen it is nearly resolved with use of the topical betamethasone. Exam: awake alert, appears younger than stated age, very pleasant scleras nonicteric bilat no carotid bruit bilat RRR, 1/6 murmur left sternal border LS CTAB No CVAT bilat Abd soft, nontender, right lateral aspect of abd is a pink macular rash w/ some secondary excoriations -nearly resolved today BLE skin intact, hairless, varicose veins Plan Continue all medications Start glyburide 2.5 mg p.o. b.i.d.. Patient reports that he has taken this in the past and tolerated it fine. Plan refer to [facility] Renal group urgently for eal and tx. I would like for him to check his blood sugar 1st thing in the morning and before dinner, keep a log and bring this back to me in 2 weeks to review. This note is constructed using voice recognition software. While every effort has been made to ensure accuracy in tank refinisher, still errors may have been included Sometimes, these errors may affect the content or meaning of the given sentence . Total time spent caring for the patient today was 40 minutes. This includes time spent before the visit reviewing the chart, time spent during the visit, and time spent after the visit on documentation [facility] Medical History Radiculopathy affecting upper extremity Lumbar strain Sciatica, left side Diabetes Cervicalgia Surgical History History of prostate surgery Family History Father Diabetes Mother Diabetes Social History Household Members: Spouse Household Members Other:: dog Housing: Apartment Are you a primary care transition mgr to a significant other at home: No Do you presently have visiting nurse or other home services: No 75 years or older and lives alone: No Alcohol intake: current Alcohol intake frequency: holidays/special occasions only Alcohol type: beer Patient Tobacco Use Status: Never used Tobacco e-Cigarette/Vaping Use: Never Used service: No Current occupational status: employed and retired 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 Adeel Lal, Avani Romano, Zane Brown and colleagues, with an educational octavia from [employer]. Physical exam (Primary Care) Vital Signs: Last Vital Signs Pulse 68 08/07/24 11:45 Resp 14 08/07/24 11:45 BP 122/70 08/07/24 11:45 Pulse Ox 96 08/07/24 11:45 Oxygen Delivery Method Room Air 08/07/24 11:45 BMI result Body Mass Index 28.4 Tobacco/Smoking Status: Tobacco use Status Tobacco use date assessed 03/22/24 08/07/24 11:47 Patient Tobacco Use Status Never used Tobacco 08/07/24 11:47 e-Cigarette/Vaping Use Never Used 08/07/24 11:47 Coding Level of Care Code Est Pt Level 5 (23444) Complex EM visit Add On G2211 Diagnoses Type 2 diabetes mellitus with stage 3a chronic kidney disease, without long-term current use of insulin E11.22; N18.31 Diabetes mellitus type: type 2 Hypertension complicating diabetes E11.59; I15.2 Hyperglycemia due to diabetes mellitus E11.65 Assessment & Plan Assessment & Plan (1) Diabetes mellitus with stage 3a chronic kidney disease, without long-term current use of insulin: Comment: Followed by Nephrology. On losartan 25 mg p.o. daily continue Code(s): E11.22 - Type 2 diabetes mellitus with diabetic chronic kidney disease; N18.31 - Chronic kidney disease, stage 3a Category: Medical Qualifiers: Diabetes mellitus type: type 2 Qualified Code(s): E11.22 - Type 2 diabetes mellitus with diabetic chronic kidney disease; N18.31 - Chronic kidney disease, stage 3a Plan: . (2) Hypertension complicating diabetes: Comment: Goal less than 130/80 currently at goal on metoprolol tartrate 25 mg p.o. b.i.d. and losartan 25 mg p.o. daily. Continue. Code(s): E11.59 - Type 2 diabetes mellitus with other circulatory complications; I15.2 - Hypertension secondary to endocrine disorders Category: Medical Plan: . (3) Hyperglycemia due to diabetes mellitus: Code(s): E11.65 - Type 2 diabetes mellitus with hyperglycemia Plan: . Plan . Orders: Referrals Nephrology Referral E11.22 - Type 2 diabetes mellitus with diabetic chronic kidney disease, E11.59 - Type 2 diabetes mellitus with other circulatory complications, I15.2 - Hypertension secondary to endocrine disorders, N18.31 - Chronic kidney disease, stage 3a Patient Instructions: Check blood sugar twice per day, once in the moring when you wake up before eating and before dinner write it down keep a log and bring to your next appt in 2 weeks You shoud hear from the kidney doctor in [place] about an appointment [facility] Glyburide 2.5mg twice per day take WITH metformin
[2024-08-07 11:45] VITALS: BP 122/70; PULSE 68; RESP 14; O2SAT 96; BMI 28.4
== END 2024-08-07 12:20 | disposition home or self-care (01) ==
PROVIDERS: PCP Nurse Practitioner Family; Visit Provider Nurse Practitioner Family
DX: E11.22 Type 2 diabetes mellitus with diabetic chronic kidney disease (principal); N18.31 Chronic kidney disease, stage 3a; E11.59 Type 2 diabetes mellitus with other circulatory complications; E11.65 Type 2 diabetes mellitus with hyperglycemia; I15.2 Hypertension secondary to endocrine disorders

== ENCOUNTER → 2024-08-07 11:24 | Outpatient (BNVA) | payer MEDICARE, SELFPAY | PROVIDERS: PCP Nurse Practitioner Family; Visit Provider Nurse Practitioner Family | DX: I15.2 Hypertension secondary to endocrine disorders (principal); E11.22 Type 2 diabetes mellitus with diabetic chronic kidney disease; N18.31 Chronic kidney disease, stage 3a; E11.59 Type 2 diabetes mellitus with other circulatory complications; E11.65 Type 2 diabetes mellitus with hyperglycemia | CPT/HCPCS: 99212 ==

== ENCOUNTER 2024-08-25 10:31 | Outpatient (AMB) | payer MEDICARE, SELFPAY ==
[2024-08-25 11:51] VITALS: BP 118/70; PULSE 75; O2SAT 99; BMI 28.5
--- NOTE | 2024-08-25 11:51 | HO.NEPHOV_ITS ---
Vital Signs 08/25/24 11:51 Height 5 ft 3 in Weight 161 lb BMI 28.5 BP 118/70 Blood Pressure Location Lt brachial Position Sitting Pulse 75 Pulse Source Pulse Oximeter Pulse Oximetry (%) 99 Oxygen Delivery Method Room Air Intake Visit Reasons: CKD/ Htn secondary endocrine disorders/ Conf Environmental Health Technologist Required: No Accompanied by: Self / Same As Patient Allergies No Known Allergies Allergy (Verified 09/01/24 14:02) HPI Comments Details: Bola is a 73 year old male with DM2 as well as CKD3a along with HTN, carcinoma in situ of prostate, HLD as well as PAD whom I had the privilege to see in consultation for high serum creatinine, He denies retinopathy. He is on metfor min and glipizide. He has no hypoglycemia. He denies any edema, CAD, carotid stenosis, CVA or CHF. He denies excessive NSAID's. He has no H/O hypercalcemia or paraproteinemia. His last serum serum creatinine has been 1.68. He denies epistaxis, recurrent sinusitis, hematuria, weight loss, dysuria , chest pain, SOB, PND , orthopnea or orthostatic symptoms. [facility] Medical History Radiculopathy affecting upper extremity Lumbar strain Sciatica, left side Diabetes Cervicalgia Surgical History History of prostate surgery Family History Father Diabetes Mother Diabetes Social History Household Members: Spouse Household Members Other:: dog Housing: Apartment Are you a primary day care teacher to a significant other at home: No Do you presently have visiting nurse or other home services: No Alcohol intake: current Alcohol intake frequency: holidays/special occasions only Alcohol type: beer Patient Tobacco Use Status: Never used Tobacco e-Cigarette/Vaping Use: Never Used service: No Current occupational status: employed and retired 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 Cognitive needs: No Hearing needs: No Vision needs: Yes (Patient wears glasses.) Review of Systems Const All systems reviewed & are unremarkable except as noted in HPI and below Physical Exam Vital Signs: Last Vital Signs Pulse 75 11/01/24 11:51 BP 118/70 08/25/24 11:51 Pulse Ox 99 08/25/24 11:51 Oxygen Delivery Method Room Air 08/25/24 11:51 BMI result Body Mass Index 28.5 Const General: comfortable and no acute distress Orientation/consciousness: patient oriented x3 HEENT Head: Yes normocephalic Mouth: Normal oral and palatal mucosa present Eyes EOM: EOMs intact bilaterally Neck Neck: Yes supple Resp Auscultation: clear to auscultation bilaterally Cardio Jugular venous distension: no JVD Rate: regular rate Heart sounds: Murmur heart sound present GI Palpation (GI): Soft to palpation Auscultation: normal bowel sounds General: Yes no CVA tenderness Back/Spine/Pelvis Back: no CVA tenderness Skin General skin exam: no rashes or lesions noted Neuro General: patient oriented x3 and moves all extremities Extrem General: Yes no pedal edema Results Reviewed Nephrology Results: Hgb 13.2 g/dl (14.0-18.0) L 07/14/24 WBC 6.9 X10*3/uL (4.8-10.8) 07/14/24 Plt Count 273 X10*3/uL (160-400) 07/14/24 Sodium 133 mmol/L (135-145) L 08/01/24 Potassium 4.3 mmol/L (3.3-5.1) 08/01/24 Chloride 100 mmol/L (96-108) 08/01/24 Carbon Dioxide 27 mmol/L (22-29) 08/01/24 BUN 18 mg/dL (9-16) H 08/01/24 Creatinine 1.68 mg/dL (0.5-1.4) H 08/01/24 Calcium 10.1 mg/dL (8.4-10.2) 08/01/24 Assessment & Plan Assessment & Plan (1) Diabetes mellitus with stage 3a chronic kidney disease, without long-term current use of insulin: Code(s): E11.22 - Type 2 diabetes mellitus with diabetic chronic kidney disease; N18.31 - Chronic kidney disease, stage 3a Category: Medical Qualifiers: Diabetes mellitus type: type 2 Qualified Code(s): E11.22 - Type 2 diabetes mellitus with diabetic chronic kidney disease; N18.31 - Chronic kidney disease, stage 3a Plan 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 He has proteinuria. He is on ARB. I started him on Jardiance 10 mg which I plan to maximize with time. I have ordered further work up including imaging studies. He should avoid NSAID's and maintain good hydration. He may need a renal biopsy. All these have been discussed in detail. All questions answered & follow up given. Orders: Orders Blood Urea Nitrogen 3 Weeks E11.22 - Type 2 diabetes mellitus with diabetic chronic kidney disease, N18.31 - Chronic kidney disease, stage 3a US renal BI 08/25/24 E11.22 - Type 2 diabetes mellitus with diabetic chronic kidney disease, N18.31 - Chronic kidney disease, stage 3a Immunofixation Pnl, Serum 3 Weeks E11.22 - Type 2 diabetes mellitus with diabetic chronic kidney disease, N18.31 - Chronic kidney disease, stage 3a Creatinine 3 Weeks E11.22 - Type 2 diabetes mellitus with diabetic chronic kidney disease, N18.31 - Chronic kidney disease, stage 3a Electrolytes 3 Weeks E11.22 - Type 2 diabetes mellitus with diabetic chronic kidney disease, N18.31 - Chronic kidney disease, stage 3a Protein Creatinine Ratio, Ur 3 Weeks E11.22 - Type 2 diabetes mellitus with diabetic chronic kidney disease, N18.31 - Chronic kidney disease, stage 3a Medications: New empagliflozin (Jardiance) 10 mg PO DAILY 30 tabs 3RF Coding Level of Care Code New Pt Level 4 (27688) Diagnoses Type 2 diabetes mellitus with stage 3a chronic kidney disease, without long-term current use of insulin E11.22; N18.31 Diabetes mellitus type: type 2
== END 2024-08-25 12:16 | disposition home or self-care (01) ==
LOC: HO.HKA 10:31
PROVIDERS: PCP Nurse Practitioner Family; Referring Provider Nurse Practitioner Family; Visit Provider Internal Medicine Nephrology
DX: E11.22 Type 2 diabetes mellitus with diabetic chronic kidney disease (principal); N18.31 Chronic kidney disease, stage 3a
CPT/HCPCS: 99204

== ENCOUNTER → 2024-08-25 10:31 | Outpatient (BNVA) | payer MEDICARE, SELFPAY | PROVIDERS: PCP Nurse Practitioner Family; Referring Provider Nurse Practitioner Family; Visit Provider Internal Medicine Nephrology | DX: I12.9 Hypertensive chronic kidney disease with stage 1 through stage 4 chronic kidney disease, or unspecified chronic kidney disease (principal); E11.22 Type 2 diabetes mellitus with diabetic chronic kidney disease; N18.31 Chronic kidney disease, stage 3a | CPT/HCPCS: 99202 ==

== ENCOUNTER 2024-09-01 12:46 | Outpatient (AMB) | payer MEDICARE, SELFPAY ==
--- NOTE | 2024-09-01 12:53 | A.OFFPC_ITS ---
Vital Signs 09/01/24 12:56 Height 5 ft 3 in Weight 161 lb 6 oz BMI 28.6 BP 151/79 H Blood Pressure Location Rt brachial Position Sitting Respiration 14 Pulse 70 Pulse Source Pulse Oximeter Pulse Oximetry (%) 98 Oxygen Delivery Method Room Air Intake Visit Reasons: 2 weeks 30 min fu hyperglycemia Intake Note: follow up Car Pre Cooler Required: No Allergies No Known Allergies Allergy (Verified 09/01/24 14:02) Medication List - Last Reconciled 09/01/24 by FRANCISCO NoriegaP- aspirin 81 mg PO DAILY atorvastatin 80 mg PO DAILY betamethasone dipropionate 0.05% 1 appl topical BID PRN blood sugar diagnostic (FreeStyle Lite Strips) As directed blood-glucose meter (FreeStyle Lite Meter kit) As directed cyanocobalamin (vitamin B-12) 2,000 mcg (2 x 1,000 mcg) PO DAILY empagliflozin (Jardiance) 10 mg PO DAILY ferrous sulfate 325 mg PO DAILY glipizide 2.5 mg PO BID 90 days lancets (FreeStyle Lancets) As directed losartan 25 mg PO DAILY magnesium aspart,citrate,oxide mg PO DAILY magnesium oxide 400 mg PO DAILY melatonin 3 mg PO BEDTIME PRN metformin 500 mg PO BID metoprolol tartrate 25 mg PO BID 90 days omeprazole 20 mg PO DAILY 90 days thiamine HCl (vitamin B1) 100 mg PO DAILY Tobacco use date assessed: 03/22/24 Dental Screening Dental Screen Date: 03/22/24 HPI HPI Comments History of Present Illness Details 73-year-old male with chronic back pain with radiculopathy, DM2, diabetic nephropathy, CKD3a, HTN, carcinoma in situ of prostate, HLD, PVD, daily etoh use, b12 def, iron def anemia Specialists: Nephro @ [facility] last visit 1 month ago, q 6 mo visits Opt - [facility], Dr Abreu -- reports exam in last year, negative for retinopathy - 2021 exam rec'd negative for retinopathy Here today for close interim follow up of hyperglycemia. Since last office visit he did have initial consult with [facility] renal [facility]. Renal consult 08/25/24 reviewed, SGLT added. Copay too high,cannot afford. 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 Next appt 09/29/24 with Renal He has repeat labs and an ultrasound scheduled In regards to his blood sugars, he has been logging twice per day. Continues on metformin and glipizide. He has noted great improvement in his blood sugars. Home log reviewed with the range of 80 to 212 mg/dL. No hypoglycemia. No hyperglycemia. He denies any polyuria, polydipsia, polyphagia Exam: awake alert, appears younger than stated age, very pleasant scleras nonicteric bilat no carotid bruit bilat RRR, 1/6 murmur left sternal border LS CTAB No CVAT bilat BLE skin intact, hairless, varicose veins Plan: In regards to being unable to afford the Jardiance, I have provided the information for [employer] as website. I have encouraged him to apply for their prescription savings program. If approved he could get this for 10 dollars per month. Needs follow up with renal in regards to this at his next office visit. Reports that if he was approved for the program, he should fill the prescription immediately and start. In regards to his diabetes, he has had great improvement with the addition of the glipizide 2.5 mg twice per day. There was consideration for increasing it to achieve better glucose control, however I will hold off on doing this at this time as the plan will be to add an SGLT2 to his regimen. I do not want to risk hypoglycemia. His blood sugars are no longer greater than 300. He is feeling well. Advised for patient to continue to monitor blood sugars twice per day and alert me immediately should his readings be consistently greater than 258. Adversely if his sugars are less than 70 he should let me know as well. I would like to see him back in October as scheduled for his annual wellness visit, labs to be done 1 week before. Advised to return to the office sooner as needed. Total time spent caring for the patient today was 30 minutes. This includes time spent before the visit reviewing the chart, time spent during the visit, and time spent after the visit on documentation This note is constructed using voice recognition software. While every effort has been made to ensure accuracy in speech correction consultant, still errors may have been included Sometimes, these errors may affect the content or meaning of the given sentence . [facility] Medical History Radiculopathy affecting upper extremity Lumbar strain Sciatica, left side Diabetes Cervicalgia Surgical History History of prostate surgery Family History Father Diabetes Mother Diabetes Social History Household Members: Spouse Household Members Other:: dog Housing: Apartment Are you a primary progressive care manager to a significant other at home: No Do you presently have visiting nurse or other home services: No 75 years or older and lives alone: No Alcohol intake: current Alcohol intake frequency: holidays/special occasions only Alcohol type: beer Patient Tobacco Use Status: Never used Tobacco e-Cigarette/Vaping Use: Never Used service: No Current occupational status: employed and retired 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 1. Little interest or pleasure in doing things: not at all 2. Feeling down, depressed, or hopeless: not at all 3. Trouble falling or staying asleep, or sleeping too much: not at all 4. Feeling tired or having little energy: not at all 5. Poor appetite or overeating: not at all 6. Feeling bad about yourself - or that you are a failure or have let yourself or your family down: not at all 7. Trouble concentrating on things, such as reading the newspaper or watching television: not at all 8. Moving or speaking so slowly that other people could have noticed. Or the opposite - being so fidgety or restless that you have been moving around a lot more than usual: not at all 9. Thoughts that you would be better off or of hurting yourself in some way: not at all Total score: 0 66905 - PHQ-9 Billing: Yes Source: Developed by Drs. Adeel Lal, Avani Romano, Zane Brown and colleagues, with an educational octavia from [employer] Thrive Questionnaire Date Thrive assessed: 09/01/24 I am a: Patient What is your living situation today?: I choose not to answer this question Within the past 12 months, did the food you bought not last and you didn't have the money to get more?: I choose not to answer this question Within the past 12 months, did you worry whether your food would run out before you got money to buy more?: Never true Do you have trouble paying for medicines?: No Do you have trouble getting transportation to medical appointments?: No Do you have trouble paying your heating and electricity bill?: No Do you have trouble taking care of your child, family member or friend?: No Do you have trouble with day-to-day activities such as bathing, preparing meals, shopping, managing finances, etc.?: No Are you currently unemployed and looking for a job?: No Are you interested in more education?: No Please select the resources that you would like help with: None Currently or been in a relationship where the following occur: No concerns reported THRIVE Score: 0 AUDIT C Alcohol Use Questionnaire (AUDIT-C) 1. How often do you have a drink containing alcohol?: 2-3 times a week 2. How many drinks containing alcohol do you have on a typical day when you are drinking?: 3 or 4 3. How often do you have six or more drinks on one occasion?: Less than monthly Total Score: 5 ZACH-7 AMB Questionnaire ZACH-7 Date ZACH - 7 assessed: 09/01/24 Feeling nervous, anxious, or on edge: 0 = Not at all Not being able to stop or control worryin = Not at all Worrying too much about different things: 0 = Not at all Trouble relaxin = Not at all Being so restless that it is hard to sit still: 0 = Not at all Becoming easily annoyed or irritable: 0 = Not at all Feeling afraid as if something awful might happen: 0 = Not at all Total ZACH-7 score (0-4 normal; 5-9 mild; 10-14 moderate; 15-21 severe): 0 Source: Developed by Drs. dAeel Lal, Avani Romano, Zane Brown and colleagues, with an educational octavia from [employer] ZACH-7 Assessment Billing ZACH-7 Assessment Tool: ZACH-7 Assessment 43113 Physical exam (Primary Care) Vital Signs: Last Vital Signs Pulse 70 09/01/24 12:56 Resp 14 09/01/24 12:56 BP 151/79 H 09/01/24 12:56 Pulse Ox 98 09/01/24 12:56 Oxygen Delivery Method Room Air 09/01/24 12:56 BMI result Body Mass Index 28.6 Tobacco/Smoking Status: Tobacco use Status Tobacco use date assessed 03/22/24 09/01/24 12:58 Patient Tobacco Use Status Never used Tobacco 09/01/24 12:58 e-Cigarette/Vaping Use Never Used 09/01/24 12:58 PHQ-9: PHQ-9 Score PHQ-9: Total score 0 09/01/24 14:00 Thrive Assessment: Date of Thrive Assessment Date Thrive assessed 09/01/24 09/01/24 12:58 Currently or been in a relationship where the following occur: No concerns reported Coding Level of Care Code Est Pt Level 4 (83493) Complex EM visit Add On G2211 Diagnoses Diabetes mellitus type 2 with complications E11.8 Type 2 diabetes mellitus with stage 3a chronic kidney disease, without long-term current use of insulin E11.22; N18.31 Diabetes mellitus type: type 2 Hypertension complicating diabetes E11.59; I15.2 B12 deficiency E53.8 Other iron deficiency anemia D50.8 Iron deficiency anemia type: other iron deficiency Additional Codes ZACH-7 Assessment Billing - ZACH-7 Assessment Tool: ZACH-7 Assessment 67474 ([id number]) PHQ-9 - 04182 - PHQ-9 Billing: Yes ([id number]) Assessment & Plan Assessment & Plan (1) Diabetes mellitus type 2 with complications: Comment: Diabetic eye exam completed in 2022. Negative for retinopathy. Code(s): E11.8 - Type 2 diabetes mellitus with unspecified complications Category: Medical Plan: . (2) Diabetes mellitus with stage 3a chronic kidney disease, without long-term current use of insulin: Comment: Followed by Nephrology. On losartan 25 mg p.o. daily continue Code(s): E11.22 - Type 2 diabetes mellitus with diabetic chronic kidney disease; N18.31 - Chronic kidney disease, stage 3a Category: Medical Qualifiers: Diabetes mellitus type: type 2 Qualified Code(s): E11.22 - Type 2 diabetes mellitus with diabetic chronic kidney disease; N18.31 - Chronic kidney disease, stage 3a Plan: . (3) Hypertension complicating diabetes: Comment: Goal less than 130/80 currently at goal on metoprolol tartrate 25 mg p.o. b.i.d. and losartan 25 mg p.o. daily. Continue. Code(s): E11.59 - Type 2 diabetes mellitus with other circulatory complications; I15.2 - Hypertension secondary to endocrine disorders Category: Medical Plan: . (4) B12 deficiency: Code(s): E53.8 - Deficiency of other specified B group vitamins Category: Medical Plan: . (5) Iron deficiency anemia: Code(s): D50.9 - Iron deficiency anemia, unspecified Category: Medical Qualifiers: Iron deficiency anemia type: other iron deficiency Qualified Code(s): D50.8 - Other iron deficiency anemias Plan: . Orders: Orders Comprehensive [address]. Panel Fast 10/25/24 D50.8 - Other iron deficiency anemias, E11.22 - Type 2 diabetes mellitus with diabetic chronic kidney disease, E11.59 - Type 2 diabetes mellitus with other circulatory complications, E11.8 - Type 2 diabetes mellitus with unspecified complications, E53.8 - Deficiency of other specified B group vitamins, I15.2 - Hypertension secondary to endocrine disorders, N18.31 - Chronic kidney disease, stage 3a TSH reflex Free T4 10/25/24 D50.8 - Other iron deficiency anemias, E11.22 - Type 2 diabetes mellitus with diabetic chronic kidney disease, E11.59 - Type 2 diabetes mellitus with other circulatory complications, E11.8 - Type 2 diabetes mellitus with unspecified complications, E53.8 - Deficiency of other specified B group vitamins, I15.2 - Hypertension secondary to endocrine disorders, N18.31 - Chronic kidney disease, stage 3a Complete Blood Count no Diff 10/25/24 D50.8 - Other iron deficiency anemias, E11.22 - Type 2 diabetes mellitus with diabetic chronic kidney disease, E11.59 - Type 2 diabetes mellitus with other circulatory complications, E11.8 - Type 2 diabetes mellitus with unspecified complications, E53.8 - Deficiency of other specified B group vitamins, I15.2 - Hypertension secondary to endocrine disorders, N18.31 - Chronic kidney disease, stage 3a Lipid Panel 10/25/24 D50.8 - Other iron deficiency anemias, E11.22 - Type 2 robert betes mellitus with diabetic chronic kidney disease, E11.59 - Type 2 diabetes mellitus with other circulatory complications, E11.8 - Type 2 diabetes mellitus with unspecified complications, E53.8 - Deficiency of other specified B group vitamins, I15.2 - Hypertension secondary to endocrine disorders, N18.31 - Chronic kidney disease, stage 3a PSA, Ultra Sensitive 10/25/24 D50.8 - Other iron deficiency anemias, E11.22 - Type 2 diabetes mellitus with diabetic chronic kidney disease, E11.59 - Type 2 diabetes mellitus with other circulatory complications, E11.8 - Type 2 diabetes mellitus with unspecified complications, E53.8 - Deficiency of other specified B group vitamins, I15.2 - Hypertension secondary to endocrine disorders, N18.31 - Chronic kidney disease, stage 3a Vitamin B12 and Folate 10/25/24 D50.8 - Other iron deficiency anemias, E11.22 - Type 2 diabetes mellitus with diabetic chronic kidney disease, E11.59 - Type 2 diabetes mellitus with other circulatory complications, E11.8 - Type 2 diabetes mellitus with unspecified complications, E53.8 - Deficiency of other specified B group vitamins, I15.2 - Hypertension secondary to endocrine disorders, N18.31 - Chronic kidney disease, stage 3a Medications: Refilled glipizide 2.5 mg PO BID 180 tabs 1RF 90 days Patient Instructions: [email or web address]
[2024-09-01 12:56] VITALS: BP 151/79; PULSE 70; RESP 14; O2SAT 98; BMI 28.6
== END 2024-09-01 14:20 | disposition home or self-care (01) ==
PROVIDERS: PCP Nurse Practitioner Family; Visit Provider Nurse Practitioner Family
DX: E11.8 Type 2 diabetes mellitus with unspecified complications (principal); E11.22 Type 2 diabetes mellitus with diabetic chronic kidney disease; N18.31 Chronic kidney disease, stage 3a; E11.59 Type 2 diabetes mellitus with other circulatory complications; I15.2 Hypertension secondary to endocrine disorders; E53.8 Deficiency of other specified B group vitamins; D50.8 Other iron deficiency anemias

== ENCOUNTER → 2024-09-01 12:46 | Outpatient (BNVA) | payer MEDICARE, SELFPAY | PROVIDERS: PCP Nurse Practitioner Family; Visit Provider Nurse Practitioner Family | DX: I15.2 Hypertension secondary to endocrine disorders (principal); E11.22 Type 2 diabetes mellitus with diabetic chronic kidney disease; N18.31 Chronic kidney disease, stage 3a; E11.59 Type 2 diabetes mellitus with other circulatory complications; E53.8 Deficiency of other specified B group vitamins; D50.8 Other iron deficiency anemias | CPT/HCPCS: 96127; 99212 ==

== ENCOUNTER 2024-09-06 13:54 | Outpatient (REF) | payer MEDICARE, SELFPAY ==
--- NOTE | ~2024-09-06 | US_ITS ---
EXAMINATION: US RETROPERITONEAL LIMITED (RENAL ONLY) CLINICAL INFORMATION: Diabetes mellitus. COMPARISON: None available. TECHNIQUE: Real-time imaging of the kidneys. FINDINGS: RIGHT KIDNEY: 10.0 x 4.6 x 3.5 cm (SAG x AP x TRV). The kidney is normal in size, contour, and echogenicity. There are persistent lobulations. There is a hypertrophic column of Bryce. Renal cortical thickness is normal. No calculi or focal parenchymal lesions. No hydronephrosis. LEFT KIDNEY: 9.7 x 4.3 x 3.8 cm (SAG x AP x TRV). The kidney is normal in size, contour, and echogenicity. Renal cortical thickness is normal. No calculi or hydronephrosis. At the upper pole, and indeterminate 2.0 x 1.6 x 1.4 cm hypoechoic lesion is seen with mild associated color Doppler flow. US/US renal BI IMPRESSION: Age-indeterminate 2.0 cm solid or semisolid left renal upper pole lesion is seen. The possibility of a neoplasm is not excluded. Recommend further evaluation with CT or MRI (contrast-enhanced, renal mass protocol). Electronically signed by: Benedicto Musa MD 09/06/2024 09:57 PM EST
== END 2024-09-06 13:55 | disposition home or self-care (01) ==
LOC: HO.US 13:54
PROVIDERS: PCP Nurse Practitioner Family; Visit Provider Internal Medicine Nephrology
DX: E11.22 Type 2 diabetes mellitus with diabetic chronic kidney disease (principal); N18.31 Chronic kidney disease, stage 3a
CPT/HCPCS: 76775

== ENCOUNTER 2024-09-13 09:11 | Outpatient (AMB) | payer MEDICARE, SELFPAY ==
--- NOTE | 2024-09-13 09:50 | HO.NEPHOV ---
Vital Signs 09/13/24 09:52 Height 5 ft 3 in Weight 163 lb 2 oz BMI 28.9 BP 116/60 Blood Pressure Location Rt brachial Position Sitting Pulse 75 Pulse Source Pulse Oximeter Pulse Oximetry (%) 96 Oxygen Delivery Method Room Air Intake Visit Reasons: Per US results Billing Representative Required: No Accompanied by: Self / Same As Patient Allergies No Known Allergies Allergy (Verified 09/13/24 09:50) HPI Comments Details: 73 year old male with DM2 as well as CKD3a along with HTN, carcinoma in situ of prostate, HLD as well as PAD whom I had the privilege to see in follow up for CKD. He denies retinopathy. He is on metformin and glipizide. He has no hypoglycemia. He denies any edema, CAD, carotid stenosis, CVA or CHF. He denies excessive NSAID's. He has no H/O hypercalcemia or paraproteinemia. His last serum serum creatinine has been 1.68. He denies epistaxis, recurrent sinusitis, hematuria, weight loss, dysuria , chest pain, SOB, PND , orthopnea or orthostatic symptoms. His recent renal USS showed a mass on the left kidney. He could not afford Jardiance. He feels well. [facility] Medical History Radiculopathy affecting upper extremity Lumbar strain Sciatica, left side Diabetes Cervicalgia Surgical History History of prostate surgery Family History Father Diabetes Mother Diabetes Social History Household Members: Spouse Household Members Other:: dog Housing: Apartment Are you a primary before and after school daycare worker to a significant other at home: No Do you presently have visiting nurse or other home services: No 75 years or older and lives alone: No Alcohol intake: current Alcohol intake frequency: holidays/special occasions only Alcohol type: beer Patient Tobacco Use Status: Never used Tobacco e-Cigarette/Vaping Use: Never Used service: No Current occupational status: employed and retired 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 Cognitive needs: No Hearing needs: No Vision needs: Yes (Patient wears glasses.) Review of Systems Const All systems reviewed & are unremarkable except as noted in HPI and below Physical Exam Vital Signs: Last Vital Signs Pulse 75 09/13/24 09:52 BP 116/60 09/13/24 09:52 Pulse Ox 96 09/13/24 09:52 Oxygen Delivery Method Room Air 09/13/24 09:52 BMI result Body Mass Index 28.9 Const General: comfortable and no acute distress Orientation/consciousness: patient oriented x3 HEENT Head: Yes normocephalic Mouth: Normal oral and palatal mucosa present Eyes EOM: EOMs intact bilaterally Neck Neck: Yes supple Resp Auscultation: clear to auscultation bilaterally Cardio Jugular venous distension: no JVD Rate: regular rate GI Palpation (GI): Soft to palpation Auscultation: normal bowel sounds General: Yes no CVA tenderness Back/Spine/Pelvis Back: no CVA tenderness Skin General skin exam: no rashes or lesions noted Neuro General: patient oriented x3 and moves all extremities Extrem General: Yes no pedal edema Results Reviewed Nephrology Results: Sodium 133 mmol/L (135-145) L 08/01/24 Potassium 4.3 mmol/L (3.3-5.1) 08/01/24 Chloride 100 mmol/L (96-108) 08/01/24 Carbon Dioxide 27 mmol/L (22-29) 08/01/24 BUN 18 mg/dL (9-16) H 08/01/24 Creatinine 1.68 mg/dL (0.5-1.4) H 08/01/24 Calcium 10.1 mg/dL (8.4-10.2) 08/01/24 Renal US 09/06/24 Assessment & Plan Assessment & Plan (1) Diabetes mellitus with stage 3a chronic kidney disease, without long-term current use of insulin: Code(s): E11.22 - Type 2 diabetes mellitus with diabetic chronic kidney disease; N18.31 - Chronic kidney disease, stage 3a Category: Medical Qualifiers: Diabetes mellitus type: type 2 Qualified Code(s): E11.22 - Type 2 diabetes mellitus with diabetic chronic kidney disease; N18.31 - Chronic kidney disease, stage 3a (2) Hypertension complicating diabetes: Comment: Goal less than 130/80 currently at goal on metoprolol tartrate 25 mg p.o. b.i.d. and losartan 25 mg p.o. daily. Continue. 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 He has proteinuria. He is on ARB. I started him on Jardiance 10 mg at the last visit but he could not afford co pay & he did not get it. . His imaging studies showed left renal mass. I ordered MRI of kidney. He should avoid NSAID's and maintain good hydration. He may need a renal biopsy. All these have been discussed in detail. All questions answered & follow up given. Orders: Orders MR abdomen wo/w con Today N28.89 - Other specified disorders of kidney and ureter Coding Level of Care Code Est Pt Level 4 (12248) Diagnoses Type 2 diabetes mellitus with stage 3a chronic kidney disease, without long-term current use of insulin E11.22; N18.31 Diabetes mellitus type: type 2 Hypertension complicating diabetes E11.59; I15.2 Renal mass N28.89
[2024-09-13 09:52] VITALS: BP 116/60; PULSE 75; O2SAT 96; BMI 28.9
== END 2024-09-13 10:19 | disposition home or self-care (01) ==
PROVIDERS: PCP Nurse Practitioner Family; Visit Provider Internal Medicine Nephrology
DX: E11.22 Type 2 diabetes mellitus with diabetic chronic kidney disease (principal); N18.31 Chronic kidney disease, stage 3a; E11.59 Type 2 diabetes mellitus with other circulatory complications; I15.2 Hypertension secondary to endocrine disorders; N28.89 Other specified disorders of kidney and ureter
CPT/HCPCS: 99214

== ENCOUNTER → 2024-09-13 09:11 | Outpatient (BNVA) | payer MEDICARE, SELFPAY | PROVIDERS: PCP Nurse Practitioner Family; Visit Provider Internal Medicine Nephrology | DX: I15.2 Hypertension secondary to endocrine disorders (principal); E11.22 Type 2 diabetes mellitus with diabetic chronic kidney disease; E11.59 Type 2 diabetes mellitus with other circulatory complications; N18.31 Chronic kidney disease, stage 3a; Z79.84 Long term (current) use of oral hypoglycemic drugs | CPT/HCPCS: 99212 ==

== ENCOUNTER 2024-10-06 10:38 | Outpatient (REF) | payer MEDICARE, SELFPAY ==
[2024-10-06 14:30] LABS: Anion Gap 13 (12-20); Blood Urea Nitrogen 17 mg/dL (9-16); Carbon Dioxide 21 mmol/L (22-29); Chloride 106 mmol/L (96-108); Estimated Glomerular Filt Rate 40; Potassium 4.7 mmol/L (3.3-5.1); Sodium 135 mmol/L (135-145)
[2024-10-06 15:04] LABS: Creatinine Urine 115.85 mg/dL; Protein/Creatinine Ratio, Ur 0.28 (<0.2); Total Protein Urine Random 33 mg/dL (<12)
[2024-10-10 18:03] LABS: IgA 244 mg/dL (70-320); IgG 1035 mg/dL (600-1540); IgM 32 mg/dL (50-300)
== END 2024-10-06 10:39 | disposition home or self-care (01) ==
LOC: HO.WFDLDS 10:38
PROVIDERS: Visit Provider Internal Medicine Nephrology
DX: E11.22 Type 2 diabetes mellitus with diabetic chronic kidney disease (principal); N18.31 Chronic kidney disease, stage 3a
CPT/HCPCS: 36415; 80051; 82565; 82570; 82784; 84156; 84520; 86334

== ENCOUNTER 2024-10-10 12:16 | Outpatient (REF) | payer MEDICARE, SELFPAY ==
[2024-10-10] MEDS: gadobutroL 7.5 ML VIAL IVPUSH (12:56)
== END 2024-10-10 12:17 | disposition home or self-care (01) ==
LOC: HO.MRI 12:16
PROVIDERS: PCP Nurse Practitioner Family; Visit Provider Internal Medicine Nephrology
DX: N28.89 Other specified disorders of kidney and ureter (principal)
CPT/HCPCS: 74183; A9585

== ENCOUNTER 2024-10-13 13:37 | Outpatient (AMB) | payer MEDICARE, SELFPAY ==
--- NOTE | 2024-10-13 13:41 | HO.NEPHOV_ITS ---
Vital Signs 10/13/24 13:42 Height 5 ft 3 in Weight 168 lb 4 oz BMI 29.8 BP 132/70 Blood Pressure Location Lt brachial Position Sitting Pulse 90 Pulse Source Pulse Oximeter Pulse Oximetry (%) 96 Oxygen Delivery Method Room Air Intake Visit Reasons: CKD-Conf [employer] Priest Required: No Accompanied by: Self / Same As Patient Allergies No Known Allergies Allergy (Verified 10/13/24 13:42) HPI Comments Details: 73 year old male with DM2 as well as CKD3a along with HTN, carcinoma in situ of prostate, HLD as well as PAD whom I had the privilege to see in follow up for CKD. He denies retinopathy. He is on metformin and glipizide. He has no hypoglycemia. He denies any edema, CAD, carotid stenosis, CVA or CHF. He denies excessive NSAID's. He has no H/O hypercalcemia or paraproteinemia. His last serum serum creatinine has been 1.68. He denies epistaxis, recurrent sinusitis, hematuria, weight loss, dysuria , chest pain, SOB, PND , orthopnea or orthostatic symptoms. His recent renal USS showed a mass on the left kidney. He could not afford Jardiance. He feels well. [facility] Medical History Radiculopathy affecting upper extremity Lumbar strain Sciatica, left side Diabetes Cervicalgia Surgical History History of prostate surgery Family History Father Diabetes Mother Diabetes Social History Household Members: Spouse Household Members Other:: dog Housing: Apartment Are you a primary college and career counselor to a significant other at home: No Do you presently have visiting nurse or other home services: No 75 years or older and lives alone: No Alcohol intake: current Alcohol intake frequency: holidays/special occasions only Alcohol type: beer Patient Tobacco Use Status: Never used Tobacco e-Cigarette/Vaping Use: Never Used service: No Current occupational status: employed and retired 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 Cognitive needs: No Hearing needs: No Vision needs: Yes (Patient wears glasses.) Review of Systems Const All systems reviewed & are unremarkable except as noted in HPI and below Physical Exam Vital Signs: Last Vital Signs Pulse 90 10/13/24 13:42 BP 132/70 10/13/24 13:42 Pulse Ox 96 10/13/24 13:42 Oxygen Delivery Method Room Air 10/13/24 13:42 BMI result Body Mass Index 29.8 Const General: comfortable and no acute distress Orientation/consciousness: patient oriented x3 HEENT Head: Yes normocephalic Mouth: Normal oral and palatal mucosa present Eyes EOM: EOMs intact bilaterally Neck Neck: Yes supple Resp Auscultation: clear to auscultation bilaterally Cardio Jugular venous distension: no JVD Rate: regular rate GI Palpation (GI): Soft to palpation Auscultation: normal bowel sounds General: Yes no CVA tenderness Back/Spine/Pelvis Back: no CVA tenderness Skin General skin exam: no rashes or lesions noted Neuro General: patient oriented x3 and moves all extremities Extrem General: Yes no pedal edema Results Reviewed Nephrology Results: Sodium 135 mmol/L (135-145) 10/06/24 Potassium 4.7 mmol/L (3.3-5.1) 10/06/24 Chloride 106 mmol/L (96-108) 10/06/24 Carbon Dioxide 21 mmol/L (22-29) L 10/06/24 BUN 17 mg/dL (9-16) H 10/06/24 Creatinine 1.71 mg/dL (0.5-1.4) H 10/06/24 Urine Creatinine 115.85 mg/dL 10/06/24 Protein/Creatinin Ratio 0.28 (<0.2) H 10/06/24 Renal US 09/06/24 Assessment & Plan Assessment & Plan (1) Diabetes mellitus with stage 3a chronic kidney disease, without long-term current use of insulin: Code(s): E11.22 - Type 2 diabetes mellitus with diabetic chronic kidney disease; N18.31 - Chronic kidney disease, stage 3a Category: Medical Qualifiers: Diabetes mellitus type: type 2 Qualified Code(s): E11.22 - Type 2 diabetes mellitus with diabetic chronic kidney disease; N18.31 - Chronic kidney disease, stage 3a (2) Hypertension complicating diabetes: Code(s): E11.59 - Type 2 diabetes mellitus with other circulatory complications; I15.2 - Hypertension secondary to endocrine disorders Category: Medical Plan 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 He has proteinuria. He is on ARB. I started him on Jardiance 10 mg at the last visit but he could not afford co pay & he did not get it. . His imaging studies showed left renal mass. He had MRI of kidney, results pending. He should avoid NSAID's and maintain good hydration. He may need a renal biopsy. All these have been discussed in detail. All questions answered & follow up given. Orders: Orders Electrolytes 3 Months E11.22 - Type 2 diabetes mellitus with diabetic chronic kidney disease, E11.59 - Type 2 diabetes mellitus with other circulatory complications, I15.2 - Hypertension secondary to endocrine disorders, N18.31 - Chronic kidney disease, stage 3a Creatinine 3 Months E11.22 - Type 2 diabetes mellitus with diabetic chronic kidney disease, E11.59 - Type 2 diabetes mellitus with other circulatory complications, I15.2 - Hypertension secondary to endocrine disorders, N18.31 - Chronic kidney disease, stage 3a Blood Urea Nitrogen 3 Months E11.22 - Type 2 diabetes mellitus with diabetic chronic kidney disease, E11.59 - Type 2 diabetes mellitus with other circulatory complications, I15.2 - Hypertension secondary to endocrine disorders, N18.31 - Chronic kidney disease, stage 3a Coding Level of Care Code Est Pt Level 4 (66526) Diagnoses Type 2 diabetes mellitus with stage 3a chronic kidney disease, without long-term current use of insulin E11.22; N18.31 Diabetes mellitus type: type 2 Hypertension complicating diabetes E11.59; I15.2
[2024-10-13 13:42] VITALS: BP 132/70; PULSE 90; O2SAT 96; BMI 29.8
== END 2024-10-13 13:54 | disposition home or self-care (01) ==
PROVIDERS: PCP Nurse Practitioner Family; Visit Provider Internal Medicine Nephrology
DX: E11.22 Type 2 diabetes mellitus with diabetic chronic kidney disease (principal); N18.31 Chronic kidney disease, stage 3a; E11.59 Type 2 diabetes mellitus with other circulatory complications; I15.2 Hypertension secondary to endocrine disorders
CPT/HCPCS: 99214

== ENCOUNTER → 2024-10-13 13:37 | Outpatient (BNVA) | payer MEDICARE, SELFPAY | PROVIDERS: PCP Nurse Practitioner Family; Visit Provider Internal Medicine Nephrology | DX: I15.2 Hypertension secondary to endocrine disorders (principal); E11.22 Type 2 diabetes mellitus with diabetic chronic kidney disease; N18.31 Chronic kidney disease, stage 3a; E11.59 Type 2 diabetes mellitus with other circulatory complications | CPT/HCPCS: 99212 ==

== ENCOUNTER 2024-11-14 09:13 | Outpatient (REF) | payer SELFPAY ==
[2024-11-14 11:38] LABS: Hematocrit 41.1 % (42.0-52.0); Hemoglobin 13.4 g/dl (14.0-18.0); Mean Corpuscular HGB Conc 32.6 g/dl (31.0-36.0); Mean Corpuscular Volume 92.2 fL (80.0-98.0); Mean Platelet Volume 11.4 fL (9.4-12.4); Platelet Count 281 X10*3/uL (160-400); Red Blood Count 4.46 X10*6/uL (4.60-5.80); Red Cell Distribution Width 14.4 % (11.0-16.0); White Blood Count 6.6 X10*3/uL (4.8-10.8)
[2024-11-14 12:08] LABS: Alanine Aminotransferase 24 U/L (0-40); Albumin Level 4.5 g/dL (3.5-5.0); Alkaline Phosphatase 78 U/L (39-117); Anion Gap 11 (12-20); Aspartate Amino Transferase 32 U/L (5-37); Blood Urea Nitrogen 17 mg/dL (9-16); Carbon Dioxide 24 mmol/L (22-29); Chloride 107 mmol/L (96-108); Cholesterol 166 mg/dL (<200); Estimated Glomerular Filt Rate 52; Glucose Fasting 136 mg/dL (60-99); HDL Cholesterol 67 mg/dL (>40); LDL Cholesterol Calculated 84 mg/dL (<100); Potassium 4.4 mmol/L (3.3-5.1); Sodium 138 mmol/L (135-145); Total Protein 7.7 g/dL (6.5-8.0); Triglycerides 75 mg/dL (<150)
[2024-11-14 12:13] LABS: TSH reflex Free T4 1.88 uIU/mL (0.32-4.0)
[2024-11-14 12:25] LABS: Folate 5.7 ng/mL (> or = 4.0); Vitamin B12 1219 pg/mL (200-900)
[2024-11-19 17:43] LABS: PSA, Ultra Sensitive <0.02 ng/mL
== END 2024-11-14 09:14 | disposition home or self-care (01) ==
LOC: HO.WFDLDS 09:13
PROVIDERS: Visit Provider Nurse Practitioner Family
DX: E11.22 Type 2 diabetes mellitus with diabetic chronic kidney disease (principal); E11.59 Type 2 diabetes mellitus with other circulatory complications; I15.2 Hypertension secondary to endocrine disorders; N18.31 Chronic kidney disease, stage 3a; D50.8 Other iron deficiency anemias; E53.8 Deficiency of other specified B group vitamins; Z12.5 Encounter for screening for malignant neoplasm of prostate
CPT/HCPCS: 36415; 80053; 80061; 82607; 82746; 84153; 84443; 85027

== ENCOUNTER 2024-11-20 07:49 | Outpatient (AMB) | payer MEDICARE, SELFPAY ==
--- NOTE | 2024-11-20 07:51 | A.OFFVIS_ITS ---
Intake Vital Signs 11/20/24 08:07 11/20/24 08:48 Height 5 ft 3 in Weight 170 lb BMI 30.1 BP 142/78 H 160/80 H Blood Pressure Location Lt brachial Rt brachial Position Sitting Sitting Respiration 13 Pulse 78 Pulse Source Pulse Oximeter Temp 97.1 F Temp Source Oral Pulse Oximetry (%) 98 Oxygen Delivery Method Room Air Intake Visit Reasons: labs then Oct Intake Note: annual awv, patient also need refill on meds Site Project Manager Required: No Allergies No Known Allergies Allergy (Verified 11/20/24 08:23) Medication List - Last Reconciled 11/20/24 by Ann Carr, [facility]- aspirin 81 mg PO DAILY atorvastatin 80 mg PO DAILY betamethasone dipropionate 0.05% 1 appl topical BID PRN blood sugar diagnostic (FreeStyle Lite Strips) As directed blood-glucose meter (FreeStyle Lite Meter kit) As directed cyanocobalamin (vitamin B-12) 2,000 mcg (2 x 1,000 mcg) PO DAILY empagliflozin (Jardiance) 10 mg PO DAILY ferrous sulfate 325 mg PO DAILY glipizide 2.5 mg PO BID 90 days lancets (FreeStyle Lancets) As directed losartan 25 mg PO DAILY magnesium aspart,citrate,oxide mg PO DAILY magnesium oxide 400 mg PO DAILY melatonin 3 mg PO BEDTIME PRN metformin 500 mg PO BID metoprolol tartrate 25 mg PO BID 90 days omeprazole 20 mg PO DAILY 90 days thiamine HCl (vitamin B1) 100 mg PO DAILY Do you need a note to return to daycare/school/sports/work: No HPI HPI Comments History of Present Illness Details Here today for AWV. The Medicare Annual Wellness Visit (AWV) is a yearly appointment with a health professional to identify health risks and help reduce them and to create or update a personalized prevention plan. During a Medicare AWV, health professionals should also review any current opioid prescriptions, detect any c ognitive impairment, and establish or update medical and family history. 74-year-old male with chronic back pain with radiculopathy, DM2, diabetic nephropathy, CKD3a, HTN, carcinoma in situ of prostate, HLD, PVD, daily etoh use, b12 def, iron def anemia, fatty liver , diverticluosis , LVH SurgHx: Y FHx: Y SocHx: Y Health Maintenance: See scanned preventative medicine assessment with [facility] plan and screening schedule. Colon: Colon reports done 1 year ago, reports WNL 2022 Vaccines: Tdap 2020, PPSV 2018, PCV 2019, Zoster UtD 2022 AAA screen: NA EKG: done today LVH othewise normal [place] of Care: Nephro @ [facility] next appt 12/2024 PVU last visit 07/2024 RTO 6 mo Optho - [facility] [place], Dr Abreu 03/2024, negative for retinopathy bilat Visual Acuity: Y wears glasses, active w Optho for DM Eye care Hearing Screening: Y tinnitus on R, normal w/o aides ACP: Y Dietary/Nutrition/Exercise Edu provided: Y During the course of the visit the patient was educated and counseled about appropriate screening and preventative services. Patient instructions were provided to the patient in written or electronic format. I have reviewed and verified the above information. Results: Labs from 03/31/2024 show low anemia RBC 3.84, hemoglobin 12.1, hematocrit 35.9, remote MCV, RDW, normal iron profile normal lytes, BUN 17, creatinine 1.24, EGFR 57, hemoglobin A1c 8.1%, elevated total bilirubin 1.2, AST T elevated 54, normal ALT 28, normal alk phos, normal lipid profile with LDL 66, B12 909, normal folate, TSH within normal limits, elevated urine microalbumin creatinine ratio of 46.3, vitamin-D normal Labs from 07/14/2024 show improving anemia, normal iron profile, normal electrolytes but worsening renal function BUN 23 creatinine 1.71 GFR 40, his BUN was 17, creatinine 1.2 for an EGFR 57 in March, fasting glucose is 217 however his A1c has improved now 7.5%, it was 8.1% in March, elevated bilirubin which is stable, improvement in the LFT elevation AST 42 was 54 in March, normal ALT and alk phos, lipid profile at goal, B12 and folate normal Labs from 11/14/2024 show stable anemia RBC 4.46, hemoglobin 13.4, hematocrit 41.1, normal electrolytes, BUN 17, creatinine 1.34, EGFR 52 which is improved from his last lab draw, fasting glucose of 136, calcium 9, normal bili, normal LFTs, normal alk-phos, lipids at goal, PSA normal, B12 elevated at 1219, normal folate, normal TSH Abd MRI 09/2024: left renal mass. 2. No renal masses, cysts, abscesses, o r hydronephrosis. 3. Fatty infiltration of the liver. 4. Diverticulosis without diverticuliti s The patient is a 74-year-old male presenting with an annual Medicare wellness visit and follow-up of his chronic conditions. He has a history of Type 2 Diabetes Mellitus, which is complicated by nephropathy and Chronic Kidney Disease Stage 3. His diabetes management has improved, as evidenced by a current A1c of 6.1, but it previously had higher readings. The patient was informed that his kidney MRI appeared normal. He also has essential hypertension, for which he takes losartan 25 mg daily, and hyperlipidemia, managed with atorvastatin. Peripheral Vascular Disease and iron deficiency anemia are part of his medical history, and he is on ferrous sulfate supplementation. There is a history of Vitamin B12 deficiency, which is supplemented. The patient reports ongoing daily alcohol use, now in the form of wine, having previously consumed hard spirits. He reports no new drug allergies. c/o tinnitus, which he experiences more on the right side Social History - Alcohol Use: Previously consumed hard liquor; currently consuming two or three small bottles of wine daily. - Exercise: Engages in physical activity around midday and afternoon. - Functional Status: No issues with mobi lity, no falls in the past year. - Substance Use: History of daily alcoho l use without current tobacco use. - Family: for 54 years; reports a good relationship with his . - Safety: Wears a seatbelt regularly whi le in a vehicle. Exam: awake alert, appears younger than stated age, very pleasant scleras nonicteric bilat TM intact clouding bilat R>L no carotid bruit bilat RRR, 1/6 murmur left sternal border EKg shows LVH LS CTAB Abd soft, nontender, normoactive bs x 3 No CVAT bilat BLE skin intact, hairless, varicose veins, decreased PP bilat Mood and affect appropriate Discussion Notes During the visit, we discussed the patient's overall health status with attention to his chronic conditions, including diabetes management, blood pressure, and kidney function. I emphasized the need for continued control of blood glucose and blood pressure to avoid further renal compromise. We reviewed his medications. I advised the cessation of ethanol consumption or moderating the amount, considering its impact on health. As the patient's A1c has shown significant improvement, diabetes management through metformin and glipizide appears effective. While his hypertension was elevated today, his self-reported blood pressure control at home indicates stable management. I proposed a hearing evaluation to assess tinnitus as it affects his daily functioning, particularly if affecting concentration and other activities. Instructions were given for the management of minor ear issues with nasal spray pending audiology consultation. I scheduled a follow-up to reassess his blood pressure and revisit the cognitive evaluation findings. Patient Instructions - Continue with current medication regim en, with adjustments to glipizide as discussed. - Persist with daily aspirin use and con tinue taking ferrous sulfate and vitamin B12. - Use nasal spray as directed for ear fl uid and tinnitus until audiology appointment. - Monitor blood pressure regularly and i nform if readings consistently remain high. - Begin reducing alcohol intake from cur rent levels, aiming for two small servings of wine. - Maintain physical activity levels and ensure safety measures like seatbelt use. - Schedule and attend a follow-up appoin tment in two weeks for blood pressure check and further cognitive testing (MOCA); LVH ?sleep study/echo Plan - Monitor Type 2 Diabetes Mellitus with nephropathy through regular A1c tests, titrate glipizide as per glycemic control, and assess interaction with metformin. - Reinforce management of Chronic Kidney Disease Stage 3 with nephrology coordination and ensure adequate hydration and renal function monitoring. - For Essential Hypertension: Reassess a nd ensure adherence to losartan, monitoring for further adjustment as needed. - Continue current hyperlipidemia manage ment with atorvastatin; monitor lipid panels periodically. - Peripheral Vascular Disease: Maintain activity levels and discuss with the vascular specialist if symptoms exacerbate. - Iron Deficiency Anemia management with continued ferrous sulfate supplementation. - Manage tinnitus through nasal spray an d arrange a detailed audiology assessment. - Continue nephrology follow-up - will need to consider echo/sleep study for eval of LVH noted on EKG today. Will f/u at next visit - Ensure health maintenance with regular follow-ups and prompt addressing of any new symptoms or complications in the patient's broad health portfolio. Patient was informed and verbally consented to the use of an ambient scrib for clinic note documentation during this visit. An additional 40 minutes was spent addressing the problem(s) noted at todays visit. This includes time spent before the visit reviewing the chart, time spent during the visit, and time spent after the visit on documentation reviewing laboratory results, diagnostic imaging, medications, performing a medically necessary evaluation, counseling on diagnoses, care coordination, ordering appropriate tests, ordering appropriate medications, review of tests performed by other providers, reporting test results with the patient, communication with other healthcare providers. [facility] Medical History Radiculopathy affecting upper extremity Lumbar strain Sciatica, left side Diabetes Cervicalgia Surgical History History of prostate surgery Family History Father Diabetes Mother Diabetes Social History Household Members: Spouse Household Members Other:: dog Housing: Apartment Are you a primary critical care unit nurse to a significant other at home: No Do you presently have visiting nurse or other home services: No 75 years or older and lives alone: No Alcohol intake: current Alcohol intake frequency: holidays/special occasions only Alcohol type: beer Patient Tobacco Use Status: Never used Tobacco e-Cigarette/Vaping Use: Never Used service: No Current occupational status: employed and retired 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 Cognitive needs: No Hearing needs: No Vision needs: Yes (Patient wears glasses.) Questionnaire Medicare Wellness Checkup [age] What gender do you identify with?: male During the past 4 weeks, how much have you been bothered by emotional problems such as feeling anxious, depressed, irritable, sad or downhearted, and blue?: not at all During the past 4 weeks, has your physical & emotional health limited your social activities with family, friends, neighbors, or groups?: not at all During the past 4 weeks, how much bodily pain have you generally had?: no pain During the past 4 weeks, was someone available to help you if you needed & wanted help?: yes, as much as I wanted During the past 4 weeks, what was the hardest physical activity you could do for at least 2 minutes?: moderate Can you get to places out of walking distance without help? (For eg., can you travel alone on buses, taxis or drive your car?): Yes Can you go shopping for groceries or clothes without someone's help?: Yes Can you prepare your own meals?: Yes Can you do your housework without help?: Yes Because of any health problems, do you need the help of another person with your personal care needs such as eating, bathing, dressing or getting around the house?: No Can you handle your own money without help?: Yes During the past 4 weeks, how would you rate your health in general?: excellent During the past 4 weeks how have things been going for you?: very well; could hardly better Are you having difficulties driving your car?: no Do you always fasten your seat belt when you are in a car?: yes, usually During past 4 weeks, have you been bothered by the following: never: Falling or dizzy when standing up, Sexual problems?, Trouble eating well?, Teeth or denture problems?, Problems using the telephone? and Tiredness or fatigue? Have you fallen 2 or more times in the past year?: No Are you a smoker?: no During the past 4 weeks, how many drinks of wine, beer, or other alcoholic beverages did you have?: 10 or more per week Do you exercise for about 20 minutes 3 or more times a week?: yes, most of the time Have you been given information to help with the following?: no: Hazards in your house that might hurt you? and no: Keeping track of your medications? How often do you have trouble taking medicines the way you have been told to take them?: I always take medicine as prescribed How confident are you that you can control & manage most of your health prob lems?: very confident What is your race?: or origin or descent Activity of Daily Living Bathing - sponge bath, tub bath or shower: receives no assistance (gets in/out by self, if usual bathing means Dressing - getting clothes from closets & drawers, including inner/outer garments & fasteners.: gets clothes & gets completely dressed without help Toileting - going to the 'toilet room' for urine/bowel elimination & cleaning self/arranging clothes: goes to toilet room, cleans self, arranges clothes without help Transfer: moves in & out of bed and chair without help (may use support object) Continence: controls urination/bowel movements completely by self Feeding: feeds self without help Total Score: 0 Information obtained from: patient Using telephone: independent Traveling: independent Shopping: independent Preparing meals: independent Housework: independent Taking medicine: independent Managing money: independent PHQ-9 Over the last 2 weeks, how often have you been bothered by any of the following problems? 1. Little interest or pleasure in doing things: not at all 2. Feeling down, depressed, or hopeless: not at all 3. Trouble falling or staying asleep, or sleeping too much: not at all 4. Feeling tired or having little energy: not at all 5. Poor appetite or overeating: not at all 6. Feeling bad about yourself - or that you are a failure or have let yourself o r your family down: not at all 7. Trouble concentrating on things, such as reading the newspaper or watching television: not at all 8. Moving or speaking so slowly that other people could have noticed. Or the opposite - being so fidgety or restless that you have been moving around a lot more than usual: not at all 9. Thoughts that you would be better off or of hurting yourself in some way: not at all Total score: 0 Depression Screening Interpretation: Negative Depression Screening Done: Yes 88683 - PHQ-9 Billing: Patient declined-do not bill Source: Developed by Drs. Adeel Lal, Avani Romano, Zane Brown and colleagues, with an educational octavia from [employer]. Physical Exam Vital Signs: Last Vital Signs Temp 97.1 F 11/20/24 08:07 Pulse 78 11/20/24 08:07 Resp 13 11/20/24 08:07 BP 160/80 H 11/20/24 08:48 Pulse Ox 98 11/20/24 08:07 Oxygen Delivery Method Room Air 11/20/24 08:07 BMI result Body Mass Index 30.1 Office Procedures EKG [id number], Complete Vision Screening Right Eye: 20/25 Left Eye: 20/25 Bilateral: 20/30 Color: Pass Corrected: Pass (wearing glasses) 49098 - Vision Screening Results AMB Hemoglobin A1c AMB Hemoglobin A1c 6.1 % Last Edit by Aleyda Valadez MA on 11/20/24 08:20 Results Reviewed Results Reviewed: Laboratory Last Values Hgb A1c (Clinic) 6.1 % (4.0-6.0) H 11/20/24 07:51 Assessment & Plan Assessment & Plan (1) Encounter for subsequent annual wellness visit (AWV) in Medicare patient: Code(s): Z00.00 - Encounter for general adult medical examination without abnormal findings (2) Diabetes mellitus type 2 with complications: Comment: Diabetic eye exam completed in 2023. Negative for retinopathy. Code(s): E11.8 - Type 2 diabetes mellitus with unspecified complications (3) Iron deficiency anemia: Code(s): D50.9 - Iron deficiency anemia, unspecified Qualifiers: Iron deficiency anemia type: other iron deficiency Qualified Code(s): D50.8 - Other iron deficiency anemias (4) B12 deficiency: Code(s): E53.8 - Deficiency of other specified B group vitamins (5) EtOH dependence: Comment: Currently on thiamine and B12. Daily drinker. No complications at the current time. Code(s): F10.20 - Alcohol dependence, uncomplicated Qualifiers: Substance use status: uncomplicated Qualified Code(s): F10.20 - Alcohol dependence, uncomplicated (6) Hypertension complicating diabetes: Code(s): E11.59 - Type 2 diabetes mellitus with other circulatory complications; I15.2 - Hypertension secondary to endocrine disorders (7) Diabetes mellitus with stage 3a chronic kidney disease, without long-term current use of insulin: Code(s): E11.22 - Type 2 diabetes mellitus with diabetic chronic kidney disease; N18.31 - Chronic kidney disease, stage 3a Qualifiers: Diabetes mellitus type: type 2 Qualified Code(s): E11.22 - Type 2 diabetes mellitus with diabetic chronic kidney disease; N18.31 - Chronic kidney disease, stage 3a (8) Carcinoma in situ of prostate: Comment: Current, active, managed by [facility]. Code(s): D07.5 - Carcinoma in situ of prostate (9) PVD (peripheral vascular disease): Comment: Based on physical exam. Skin intact. Continue statin, aspirin, blood pressure control, diabetes control. Code(s): I73.9 - Peripheral vascular disease, unspecified (10) Hyperlipidemia: Comment: Goal LDL less than 70 currently on atorvastatin 80 mg p.o. daily. On daily aspirin 81 mg Code(s): E78.5 - Hyperlipidemia, unspecified Qualifiers: Hyperlipidemia type: mixed hyperlipidemia Qualified Code(s): E78.2 - Mixed hyperlipidemia (11) Tinnitus, right ear: Code(s): H93.11 - Tinnitus, right ear (12) Fatty liver: Comment: + etoh Code(s): K76.0 - Fatty (change of) liver, not elsewhere classified (13) Diverticulosis: Code(s): K57.90 - Diverticulosis of intestine, part unspecified, without perforation or abscess without bleeding (14) Cognitive impairment: Code(s): R41.89 - Other symptoms and signs involving cognitive functions and awareness (15) LVH (left ventricular hypertrophy): Comment: EKG 11/20/24, CONSIDER SLEEP STUDY/ECHO Code(s): I51.7 - Cardiomegaly Plan . Orders: Orders AMB EKG-In Office Today Z13.6 - Encounter for screening for cardiovascular disorders AMB Hemoglobin A1c Today E11.8 - Type 2 diabetes mellitus with unspecified complications, Z13.9 - Encounter for screening, unspecified Referrals Audiology Referral H93.11 - Tinnitus, right ear Medications: New fluticasone propionate 50 mcg/actuation (Allergy Relief (fluticasone)) administer into each nostril 1 spray intranasal BID 16 grams 3RF Refilled glipizide 2.5 mg PO BID 180 tabs 1RF 90 days blood sugar diagnostic (FreeStyle Lite Strips) As directed 100 ea 11RF E11.8 - Type 2 diabetes mellitus with unspecified complications lancets (FreeStyle Lancets) As directed 100 ea 11RF E11.8 - Type 2 diabetes mellitus with unspecified complications Discontinued magnesium oxide Discontinued Reason: Patient Completed Course 400 mg PO DAILY 90 tabs 0RF empagliflozin (Jardiance) Discontinued Reason: Insurance Denied 10 mg PO DAILY 30 tabs 3RF Quality Reporting (2019) Adult ([facility] 138/2/) Smoking risk assessment performed?: Yes Patient Tobacco Use Status: Never used Tobacco Depression screening performed: Yes Screen Results: Yes Negative screen Systolic BP not done?: No BMI screening not done: No Sexual Activity Screening ([facility] 153) Sexually active?: Yes Immunizations ([facility] 147, 117) Annual Influenza Vaccine: Yes Measles Antibody Test: No Mumps Antibody Test: No Rubella Antibody Test: No Varicella Antibody Test: No Anti Hepatitis A IgG Antigen test: No Anti Hepatitis B Virus Surface Ab test: No Diabetes ([facility] 131/134/142) Date of last retinal or dilated eye exam: 04/07/24 Macular exam performed: Yes Fall Risk Screening ([facility] 139) Last assessed Fall Risk: 11/20/24 Fall risk assessment: No Falls in past year Dementia Assessment ([facility] 149) Cognitive assessment recorded: Yes Assessment of cognition with standardized tool: Yes (04/21 6 CIT ) Depression/Bipolar (159/160/161/177) PHQ-9: Total score: 0 Ophthalmol:Cataracts Visual Acuity (133) Visual acuity exam performed: Yes (see results) Coding Level of Care Code Medicare Subsequent (G0439) Est Pt Level 5 (93636) Diagnoses Encounter for subsequent annual wellness visit (AWV) in Medicare patient Z00.00 Diabetes mellitus type 2 with complications E11.8 Other iron deficiency anemia D50.8 Iron deficiency anemia type: other iron deficiency B12 deficiency E53.8 Uncomplicated alcohol dependence F10.20 Substance use status: uncomplicated Hypertension complicating diabetes E11.59; I15.2 Type 2 diabetes mellitus with stage 3a chronic kidney disease, without long-term current use of insulin E11.22; N18.31 Diabetes mellitus type: type 2 Carcinoma in situ of prostate D07.5 PVD (peripheral vascular disease) I73.9 Mixed hyperlipidemia E78.2 Hyperlipidemia type: mixed hyperlipidemia Tinnitus, right ear H93.11 Fatty liver K76.0 Diverticulosis K57.90 Cognitive impairment R41.89 LVH (left ventricular hypertrophy) I51.7 CPT Codes Advance Care Planning - Time spent: 1-15 minutes, not on file ([id number]) EKG - CPT: [id number], Complete ([id number]) Vision Screening - Vision Screenin - Vision Screening ([id number]) Advance Care Planning Advance Care Planning discussion: Exists, not on file Date of discussion: 11/20/24 Who was present: self Forms completed: Health Care Proxy, MOLST, Comfort care/DNR and Living will Time spent: 1-15 minutes, not on file Actual minutes spent: 5
--- OUTSIDE RECORDS SUMMARY | 2024-11-20 07:51 | XMS_ITS | Clinical Summary ---
Author Organization [facility] Address [address] [place] [address] Phone Care Team Providers Care Medical Biller/Coder Name Role Phone Med [facility] Primary Care Provider [phone] Allergies No known active allergies Medications Magnesium 400 MG tablet Take 400 mg by mouth 1 (one) time each day Active omeprazole (PriLOSEC) [address] capsule Take 20 mg by mouth 1 (one) time each day Do not crush or chew. Active losartan (COZAAR) 25 MG tablet Take 25 mg by mouth 1 (one) time each day Active metoprolol tartrate 25 MG tablet Take 25 mg by mouth in the morning and 25 mg in the evening. Active aspirin (ST STACY) 81 MG EC tablet Take 81 mg by mouth 1 (one) time each day Active atorvastatin (LIPITOR) 80 MG tablet Take 80 mg by mouth 1 (one) time each day Active metFORMIN (GLUCOPHAGE) 500 MG tablet Take 500 mg by mouth in the morning and 500 mg in the evening. Take with meals. Active Cyanocobalamin 1000 MCG capsule Take 2,000 mcg by mouth 1 (one) time each day Active melatonin (GNP Melatonin) 3 MG tablet Take 3 mg by mouth Active Active Problems Problem Noted Date Diagnosed Date Type 2 diabetes mellitus with diabetic nephropat hy 03/09/2023 Malignant neoplasm of prostate 12/23/2022 Fatty liver 07/29/2022 11/04/2023 Hypomagnesemia 07/27/2022 11/04/2023 Prostate specific antigen above reference range 07/27/2022 Wheezing 07/27/2022 11/04/2023 Chronic kidney disease 12/04/2016 Cobalamin deficiency 04/06/2014 11/04/2023 Anemia 01/03/2014 11/04/2023 Coronary arteriosclerosis 12/26/20132023 H/O: artificial joint 12/26/2013 11/04/2023 Osteoarthritis of left knee joint 03/28/2012 11/04/2023 Microalbuminuria 07/16/2011 11/04/2023 Type 2 diabetes mellitus 07/16/2011 024 Overview (11/04/2023): Carpal tunnel surgery-Right. Hepatitis C antibody detected 10/09/2010 Overview (11/04/2023): Treated In 2002 With subseq Neg viral load Pure hypercholesterolemia 12/16/20062023 Benign essential hypertension 02/04/2006 Esophageal reflux 02/04/2006 11/04/2023 Family History Medical History Relation Comments Diabetes Brother Diabetes Father Stroke Father Diabetes Mother Relation Status Comments Brother Father Mother Social History Tobacco Use Types Packs/Day Years Used Date Smoking Tobacco: Former Cigarettes Smokeless Tobacco: Never Tobacco Cessation:Counseling Given: Not Answered Alcohol Use Standard Drinks/Week Comments Yes 0 (1 standard drink = 0.6 oz pur e alcohol) Sex and Gender Information Value Date Recorded Sex Assigned at Not on file Legal Sex Male 1:18 PM EST Gender Identity Not on file Sexual Orientation Not on file Last Filed Vital Signs Vital Sign Reading Time Taken Comments Blood Pressure 140/79 11/04/2023 3:35 PM EST Pulse 75 11/04/2023 3:35 PM EST Temperature - - Respiratory Rate - - Oxygen Saturation - - Inhaled Oxygen Concentration - - Weight 70.8 kg (156 lb) 11/04/2023 3:35 PM EST Height - - Body Mass Index - - Plan of Treatment Health Maintenance Due Date Last Done Comments Colorectal Cancer Screening: Annual FOBT 2001 Colorectal Cancer Screening: Colonoscopy 2001 Colorectal Cancer Screening: Sigmoidoscopy 2001 Diabetes: Ophthalmology Exam 03/09/202305/2011, 02/07/2010, 02/07/2009, Additional history exists Diabetes: Pedal Pulse Checked 03/09/2023 Diabetes: Sensory Foot Exam 03/09/2023 Diabetes: Visual Foot Exam 03/09/2023 Diabetes: Hemoglobin A1C 12/27/2023 09/27/2023 Influenza Vaccine (#1) 2024 2, 08/08/2020, 09/23/2018, Additional history exists Pneumococcal Vaccine: 65+ Years Completed 03/24/2019, 03/17/2018, 05/15/2003 Hepatitis B Vaccine Aged Out No longe r eligible based on patient's age to complete this topic Procedures Procedure Name Priority Date/Time Associated Diagnosis Comments HEMOGLOBIN A1C Routine 09/27/2023 12:50 PM EST from Last 3 Months or Most Recently Relevant to Health Maintenance Results * (ABNORMAL) Hemoglobin A1c (09/27/2023 12:50 PM EST) Hemoglobin A1C 10.1(H) (4.0-5.6) % [facility] Comment: MONITORING: In known diabetic patients, hemoglobin A1c targets should be discussed with health care provider. DIAGNOSTIC USE: ??The [place] Diabetes Association (ADA) and the World Health Organization (WHO) recommend the use of HbA1c to diagnose diabetes using a threshold of 6.5%. Patients who have an HbA1c between 5.7% and 6.4% are considered at increased risk for developing diabetes in the future. CAUTION: Falsely low HbA1c results may be observed in patients with hemolytic anemia, homozygous forms of abnormal hemoglobin (e.g. SS, CC, SC), , recent blood loss or hemoglobin F greater than 7%. Fructosamine may be used as an alternate test in these cases. REFERENCE: ADA: Standards of Medical Care in Diabetes 2020, The Journal of Clinical and Applied Research and Education Volume 43, Supplement 1 Testing performed or reported by [facility], a Service of [facility], [address] [place] [id number] Luis Angel Busch MD, Invoice Machine Operator [facility]# [id number] 09/27/2023 12:5 0 PM EST 09/27/2023 12:52 PM EST Rasta Gan MD LAB BLOOD ORDERABLES Beverly hayes Result [facility] from Last 3 Months or Most Recently Relevant to Health Maintenance [place] [address] [place] [address] Care Teams Medical Biller/Coder Relationship Specialty Start Date End Date Med Wh[facility]ide PCP - General 12/16/22
[2024-11-20 08:07] VITALS: BP 142/78; PULSE 78; RESP 13; TEMP 36.2; O2SAT 98; BMI 30.1
[2024-11-20 08:48] VITALS: BP 160/80
== END 2024-11-20 08:53 | disposition home or self-care (01) ==
PROVIDERS: PCP Nurse Practitioner Family; Visit Provider Nurse Practitioner Family
DX: Z00.00 Encounter for general adult medical examination without abnormal findings (principal); E11.8 Type 2 diabetes mellitus with unspecified complications; F10.20 Alcohol dependence, uncomplicated; E11.59 Type 2 diabetes mellitus with other circulatory complications; E11.22 Type 2 diabetes mellitus with diabetic chronic kidney disease; N18.31 Chronic kidney disease, stage 3a; I73.9 Peripheral vascular disease, unspecified; D50.8 Other iron deficiency anemias; E53.8 Deficiency of other specified B group vitamins; I15.2 Hypertension secondary to endocrine disorders; D07.5 Carcinoma in situ of prostate; E78.2 Mixed hyperlipidemia

== ENCOUNTER → 2024-11-20 07:49 | Outpatient (BNVA) | payer MEDICARE, SELFPAY | PROVIDERS: PCP Nurse Practitioner Family; Visit Provider Nurse Practitioner Family | DX: Z00.01 Encounter for general adult medical examination with abnormal findings (principal); D50.8 Other iron deficiency anemias; E53.8 Deficiency of other specified B group vitamins; F10.20 Alcohol dependence, uncomplicated; E11.59 Type 2 diabetes mellitus with other circulatory complications; I12.9 Hypertensive chronic kidney disease with stage 1 through stage 4 chronic kidney disease, or unspecified chronic kidney disease; E11.22 Type 2 diabetes mellitus with diabetic chronic kidney disease; N18.31 Chronic kidney disease, stage 3a; D07.5 Carcinoma in situ of prostate; H93.11 Tinnitus, right ear; I73.9 Peripheral vascular disease, unspecified; K76.0 Fatty (change of) liver, not elsewhere classified; K57.90 Diverticulosis of intestine, part unspecified, without perforation or abscess without bleeding; R41.89 Other symptoms and signs involving cognitive functions and awareness; I51.7 Cardiomegaly | CPT/HCPCS: 83036; 93005; 99212 ==

== ENCOUNTER 2024-12-08 08:22 | Outpatient (AMB) | payer MEDICARE, SELFPAY ==
--- NOTE | 2024-12-08 08:25 | A.OFFPC_ITS ---
Vital Signs 12/08/24 08:31 Height 5 ft 3 in Weight 169 lb 2 oz BMI 30.0 BP 142/76 H Blood Pressure Location Rt brachial Position Sitting Respiration 13 Pulse 66 Pulse Source Pulse Oximeter Temp 98.2 F Temp Source Oral Pulse Oximetry (%) 98 Oxygen Delivery Method Room Air Intake Visit Reasons: 2 weeks 30 minw me FU HTN/[address] Intake Note: follow up on htn/[facility] Hospice Volunteer Required: No Allergies No Known Allergies Allergy (Verified 12/08/24 08:26) Tobacco use date assessed: 12/08/24 Fall risk assessment: No Falls in past year Last assessed Fall Risk: 12/08/24 Dental Screening Dental Screen Date: 12/08/24 Did you have a dental visit in the last 12 months?: Yes Did you have a dental problem in the last 6 months where you did not have access to dental care?: No Was dental information given to patient?: Patient has dentist HPI HPI Comments History of Present Illness Details History of Present Illness - The patient is a 74-year-old male pres enting with elevated blood pressure and cognitive impairment. - Previously identified elevated blood p ressure without home monitoring. - Abnormal cognitive screening test resu lts have been noted. - The patient experiences forgetfulness and difficulty following directions. - History of tinnitus; hearing aids eveline mmended but not regularly used. - EKG shows left ventricular hypertrophy . - No reported excessive daytime sleepine ss; no prior sleep studies. - Plans for further evaluation with a sl eep study and echocardiogram. Physical Exam General: Well developed, well nourished, in no acute distress. Appears younger than stated age. Head: Normocephalic, atraumatic. Eyes: Pupils are equal, round and reactive to light and accommodation. C onjunctivae are clear. Vision grossly normal. Lungs: Clear to auscultation bilaterally. No rales, rhonchi or wheeze noted. Good air flow in all meléndez. Heart: Previous 11/20/24 EKG showed left ventricular hypertrophy (LVH). Psych: Mood and affect appropriate. Cognitive impairment noted; MOCA exam performed. Results - Tests and Diagnostics: - Prior EKG luis wed Left Ventricular Hypertrophy (LVH). Discussion Notes I discussed with the patient the improvements in blood pressure control since the last visit and the continued concerns regarding cognitive function. We reviewed the possibility that impaired hearing might be contributing to cognitive issues, hence the importance of a hearing aid trial as discussed with the patient. I explained the proposed diagnostic steps, including a sleep study to assess potential sleep apnea that might affect cognitive function and blood pressure, and an echocardiogram to evaluate cardiac function, especially given the presence of left ventricular hypertrophy. The necessity for these tests, as well as the implications if pathologies are identified, was discussed in detail. I will follow up on the results of these tests in a subsequent visit. The patient was agreeable to the plan and will schedule follow-up appointments based on the testing timetable. Assessment and Plan 74-year-old male with history of hyperte nsion and cognitive impairment presenting with elevated blood pressure and cognitive symptoms. The EKG shows left ventricular hypertrophy. There is some improvement in blood pressure, but persistent cognitive issues may relate partly to auditory difficulties. An echocardiogram and sleep study are planned to evaluate cardiac function and potential sleep apnea. Home blood pressure monitoring is advised, and hearing aid use is recommended. 1. Cognitive Impairment Cognitive impairment remains despite some improvement in blood pressure. Planned hearing aid use and diagnostic sleep study will assist in determining contributing factors and appropriate management. 2. Left Ventricular Hypertrophy An echocardiogram is recommended to further evaluate cardiac findings, including left ventricular hypertrophy, observed in EKG. This will inform cardiovascular management. 3. Essential Hypertension The patient's blood pressure shows improvement, but regular home monitoring is advised. Diagnostic tests planned to evaluate underlying factors influencing blood pressure. 4. Tinnitus Tinnitus may be affecting cognition. The recommendation is for the patient to retry hearing aids previously recommended and to proceed with a hearing evaluation to better understand and manage the auditory effects. Patient Instructions - Wear your hearing aids regularly as pr eviously recommended and attend your hearing test appointment in December. - Undergo the home sleep study as planne d to evaluate for any sleep-related issues. - Regularly monitor your blood pressure at home and record the results for future follow-up visits. - Attend appointments for the scheduled echocardiogram and sleep study. - Return for a follow-up appointment in approximately four to six weeks after tests have been completed to discuss results and future management plans. - Continue maintaining your regular acti vities and inform me if new symptoms or concerns arise. Consent The patient gave verbal consent to undergo a sleep study and echocardiogram. I discussed the purpose of these tests, including evaluating sleep apnea and cardiac structure and function, respectively, and their potential impact on health outcomes. The patient acknowledged understanding the reasons for these tests and the implicit risks, including potential diagnoses and the influence of these findings on future treatment and management. Consent for these diagnostic procedures and ongoing management of hypertension and cognitive decline was obtained with full patient agreement. Patient was informed and verbally consented to the use of an ambient scribe for clinic note documentation during this visit. Total time spent caring for the patient today was 40 minutes. This includes time spent before the visit reviewing the chart, time spent during the visit, and time spent after the visit on documentation, reviewing laboratory results, diagnostic imaging, medications, performing a medically necessary evaluation, counseling on diagnoses, care coordination, ordering appropriate tests, ordering appropriate medications, review of tests performed by other providers, reporting test results with the patient, communication with other healthcare providers. [facility] Medical History Radiculopathy affecting upper extremity Lumbar strain Sciatica, left side Diabetes Cervicalgia Surgical History History of prostate surgery Family History Father Diabetes Mother Diabetes Social History Household Members: Spouse Household Members Other:: dog Housing: Apartment Are you a primary home care aide to a significant other at home: No Do you presently have visiting nurse or other home services: No 75 years or older and lives alone: No Alcohol intake: current Alcohol intake frequency: holidays/special occasions only Alcohol type: beer Patient Tobacco Use Status: Never used Tobacco e-Cigarette/Vaping Use: Never Used service: No Current occupational status: employed and retired 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 1. Little interest or pleasure in doing things: not at all 2. Feeling down, depressed, or hopeless: not at all 3. Trouble falling or staying asleep, or sleeping too much: not at all 4. Feeling tired or having little energy: not at all 5. Poor appetite or overeating: not at all 6. Feeling bad about yourself - or that you are a failure or have let yourself or your family down: not at all 7. Trouble concentrating on things, such as reading the newspaper or watching television: not at all 8. Moving or speaking so slowly that other people could have noticed. Or the opposite - being so fidgety or restless that you have been moving around a lot more than usual: not at all 9. Thoughts that you would be better off or of hurting yourself in some way: not at all Total score: 0 59359 - PHQ-9 Billing: Yes Source: Developed by Drs. Adeel Lal, Avani Romano, Zane Brown and colleagues, with an educational octavia from [employer]. Thrive Questionnaire Date Thrive assessed: 12/08/24 I am a: Patient What is your living situation today?: I choose not to answer this question Within the past 12 months, did the food you bought not last and you didn't have the money to get more?: I choose not to answer this question Within the past 12 months, did you worry whether your food would run out before you got money to buy more?: Never true Do you have trouble paying for medicines?: No Do you have trouble getting transportation to medical appointments?: No Do you have trouble paying your heating and electricity bill?: No Do you have trouble taking care of your child, family member or friend?: No Do you have trouble with day-to-day activities such as bathing, preparing meals, shopping, managing finances, etc.?: No Are you currently unemployed and looking for a job?: No Are you interested in more education?: No Please select the resources that you would like help with: None Currently or been in a relationship where the following occur: I choose not to answer THRIVE Score: 0 AUDIT C Alcohol Use Questionnaire (AUDIT-C) 1. How often do you have a drink containing alcohol?: 2-3 times a week 2. How many drinks containing alcohol do you have on a typical day when you are drinking?: 1 or 2 3. How often do you have six or more drinks on one occasion?: Weekly Total Score: 6 ZACH-7 AMB Questionnaire ZACH-7 Date ZACH - 7 assessed: 12/08/24 Feeling nervous, anxious, or on edge: 0 = Not at all Not being able to stop or control worryin = Not at all Worrying too much about different things: 0 = Not at all Trouble relaxin = Not at all Being so restless that it is hard to sit still: 0 = Not at all Becoming easily annoyed or irritable: 0 = Not at all Feeling afraid as if something awful might happen: 0 = Not at all Total ZACH-7 score (0-4 normal; 5-9 mild; 10-14 moderate; 15-21 severe): 0 Source: Developed by Drs. Adeel Lal, Avani Romano, Zane Brown and colleagues, with an educational octavia from [employer]. ZACH-7 Assessment Billing ZACH-7 Assessment Tool: ZACH-7 Assessment 42465 Physical exam (Primary Care) Vital Signs: Last Vital Signs Temp 98.2 F 12/08/24 08:31 Pulse 66 12/08/24 08:31 Resp 13 12/08/24 08:31 BP 142/76 H 12/08/24 08:31 Pulse Ox 98 12/08/24 08:31 Oxygen Delivery Method Room Air 12/08/24 08:31 BMI result Body Mass Index 30.0 Tobacco/Smoking Status: Tobacco use Status Tobacco use date assessed 12/08/24 12/08/24 08:28 Patient Tobacco Use Status Never used Tobacco 12/08/24 08:28 e-Cigarette/Vaping Use Never Used 12/08/24 08:28 PHQ-9: PHQ-9 Score PHQ-9: Total score 0 12/08/24 08:57 Thrive Assessment: Date of Thrive Assessment Date Thrive assessed 12/08/24 12/08/24 08:28 Currently or been in a relationship where the following occur: I choose not to answer Coding Level of Care Code Est Pt Level 5 (10618) Complex EM visit Add On G2211 Diagnoses Cognitive impairment R41.89 LVH (left ventricular hypertrophy) I51.7 Hypertension complicating diabetes E11.59; I15.2 Sensorineural hearing loss (SNHL) of both ears H90.3 Laterality: bilateral Tinnitus, right ear H93.11 Additional Codes ZACH-7 Assessment Billing - ZACH-7 Assessment Tool: ZACH-7 Assessment 21874 ([id number]) PHQ-9 - 18934 - PHQ-9 Billing: Yes ([id number]) Assessment & Plan Assessment & Plan (1) Cognitive impairment: Code(s): R41.89 - Other symptoms and signs involving cognitive functions and awareness Category: Medical (2) LVH (left ventricular hypertrophy): Comment: EKG 11/20/24, SLEEP STUDY/ECHO Code(s): I51.7 - Cardiomegaly Category: Medical (3) Hypertension complicating diabetes: Code(s): E11.59 - Type 2 diabetes mellitus with other circulatory complications; I15.2 - Hypertension secondary to endocrine disorders Category: Medical (4) Sensorineural hearing loss: Comment: hearing test 2020 mild to moderate severe hearing loss bilat December 2024 hearing exam scheduled @ [facility] Code(s): H90.5 - Unspecified sensorineural hearing loss Category: Medical Qualifiers: Laterality: bilateral Qualified Code(s): H90.3 - Sensorineural hearing loss, bilateral (5) Tinnitus, right ear: Code(s): H93.11 - Tinnitus, right ear Category: Medical Plan . Orders: Orders CA echo transthoracic complete Today I51.7 - Cardiomegaly, R41.89 - Other symptoms and signs involving cognitive functions and awareness RT home sleep study Today I51.7 - Cardiomegaly, R41.89 - Other symptoms and signs involving cognitive functions and awareness
[2024-12-08 08:31] VITALS: BP 142/76; PULSE 66; RESP 13; TEMP 36.8; O2SAT 98
--- OUTSIDE RECORDS SUMMARY | 2024-12-08 08:37 | XMS_ITS | Clinical Summary ---
Author Organization [facility] Address [address] [place] [address] Phone Care Team Providers Care Watch Crystal Cutter Name Role Phone Med Whiteside Primary Care Provider [phone] [phone] Allergies No known active allergies Medications Magnesium [...] PM EST) Hemoglobin A1C 10.1(H) (4.0-5.6) % [facility] Comment: MONITORING: In known diabetic patients, hemoglobin A1c targets should be discussed with health care provider. DIAGNOSTIC USE: ??The [place] Diabetes Association (ADA) and the World Health [...] Supplement 1 Testing performed or reported by [facility], a Service of [facility], [address] [place] [id number] Luis Angel Busch MD, Packing Shed Supervisor [facility]# [id number] 09/27/2023 12:5 0 PM EST 09/27/2023 12:52 PM EST Rasta Gan MD LAB BLOOD ORDERABLES Beverly hayes Result [facility] from Last 3 Months or Most Recently Relevant to Health Maintenance Insurance [address] [place] [address] Care Teams Watch Crystal Cutter Relationship Specialty Start Date End Date Med Whiteside PCP - General 12/16/22
== END 2024-12-08 09:23 | disposition home or self-care (01) ==
PROVIDERS: PCP Nurse Practitioner Family; Visit Provider Nurse Practitioner Family
DX: E11.59 Type 2 diabetes mellitus with other circulatory complications (principal); R41.89 Other symptoms and signs involving cognitive functions and awareness; I51.7 Cardiomegaly; I15.2 Hypertension secondary to endocrine disorders; H90.3 Sensorineural hearing loss, bilateral; H93.11 Tinnitus, right ear

== ENCOUNTER → 2024-12-08 08:22 | Outpatient (BNVA) | payer MEDICARE, SELFPAY | PROVIDERS: PCP Nurse Practitioner Family; Visit Provider Nurse Practitioner Family | DX: R41.89 Other symptoms and signs involving cognitive functions and awareness (principal); I51.7 Cardiomegaly; E11.59 Type 2 diabetes mellitus with other circulatory complications; I15.2 Hypertension secondary to endocrine disorders; H90.3 Sensorineural hearing loss, bilateral; H93.11 Tinnitus, right ear | CPT/HCPCS: 96127; 99212 ==

== ENCOUNTER → 2024-12-26 14:28 | Outpatient (REF) | payer MEDICARE, SELFPAY ==
--- NOTE | 2024-12-26 14:31 | CA_ITS ---
Transthoracic Echocardiogram Patient (Last, First, Middle): Bola Cee, Gender: Male Date of : 1950 Age: 74 Procedure Date: 12/26/2024 Procedure Type: Transthoracic Echocardiogram Location: OP Height: 160.02 cm Weight: 76.66 kg BSA: 1.80 m2 Heart Rate: bpm BP: 142 / 76 mmHg Soil Conservation Aide: MILANA Referring MD: Ann Carr [facility]- Net Repairer: David Marr MD Symptoms: I51.7 - Cardiomegaly Study Quality: Adequate ECG Rhythm: Sinus Conclusions: - 1. Normal LV ejection fraction of 60 65% with impaired relaxation filling pattern 2. Normal cardiac valvular Dopplers 3. Normal RV systolic pressure 4. No pericardial effusion Findings Left Ventricle Normal left ventricular size, thickness, and systolic function. The visually estimated ejection fraction is between 60-65%. Spectral Doppler is indicative of an impaired relaxation filling pattern. E/E prime ratio is between 8 and 15 consistent with indeterminate filling pressures. Right Ventricle Normal right ventricular cavity size and systolic function. Atria Both atria are normal in size. There is lipomatous hypertrophy of the interatrial septum. There is no evidence of interatrial shunt. Aortic Valve Normal aortic valve structure and function. There is no aortic valve stenosis. There is no aortic valve regurgitation. Mitral Valve Normal mitral valve structure and function. There is trace mitral valve regurgitation. There is no mitral valve stenosis. Pulmonic Valve The pulmonic valve is likely normal. Tricuspid Valve Normal tricuspid valve structure. There is trace tricuspid valve regurgitation. The right ventricular systolic pressure is normal. The right ventricular systolic pressure is 17 mmHg. Normal right atrial pressure. There is no evidence of pulmonary hypertension. Great Vessels All visible segments of the aorta are normal in size. The pulmonary artery was not well visualized. Venous The inferior vena cava is normal in size and collapses greater than 50% with inspiration. Pericardium/Pleural There is no evidence of pericardial effusion. Prior Study Comparison No prior study available for comparison. Measurements 2D Linear Measurements IVSd: 0.96 0.6-0.9/0.6-1.0 cm LVIDd: 4.90 3.9-5.3/4.2-5.9 cm LVIDd Index: 2.72 2.4-3.2/2.2-3.1 cm/m2 LVIDs: 2.84 2.0-3.6 cm LVPWd: 0.92 0.7-1.1 cm LA Diam: 3.50 2.7-3.8/3.0-4.0 cm LAIDs Index: 1.94 1.5-2.3 cm/m2 LV Mass: 201.49 67-162/88-224 g LV Mass Index: 111.94 43-95/49-115 g/m2 LVOT Diam: 2.10 3.0+(-)1.3 cm 2D Systolic Function EF 4C: 61.80 >55% EF 2C: 60.20 >55% EF BiP: 61.20 >55% Mitral Valve MV Pk E: 0.84 MV PK A: 0.92 MV Decel Time: 275.00 E/A: 0.90 E'Lateral: 6.64 E'Medial: 5.11 E/E' Med: 16.40 E/E' Lat: 12.60 PHT: 81.00 MVA PHT: 2.72 Decel Cocke: 3.05 Aortic Valve AoV Pk Jovan: 1.53 AoV Mn Jovan: 1.06 AoV VTI: 0.35 AoV Pk Grad: 9.00 Aov Mn Grad: 5.00 TARYN Cont.VTI: 2.53 LVOT LVOT Pk Jovan: 1.17 LVOT Mn Jovan: 0.74 LVOT VTI: 0.25 LVOT Pk Grad: 5.00 LVOT Mn Grad: 3.00 LVOT Diam: 2.10 LVOT Area: 3.46 Diastolic Function MV Pk E: 0.84 MV Pk A: 0.92 E/A: 0.90 E'Medial: 5.11 E/E' Med: 16.40 E' Laterial: 6.64 E/E' Lat: 12.60 Right Ventricle TAPSE (mm): 25.60 TVS' Jovan: 14.40 Tricuspid Valve TR Pk Jovan: 1.87 TR Pk Grad: 14.00 RA Press: 3.00 RVSP: 17.00 Great Vessels Aorta Sinus of Valsalva: 2.67 2.0-3.[address] Ridge: 2.58 1.7-3.4 cm Ao Asc: 3.40 2.1-3.4 cm Updated in Other Vendor System with Status of Final David Marr MD electronically signed on 12/27/2024 11:21:12 AM with status of Final
--- OUTSIDE RECORDS SUMMARY | 2024-12-26 18:18 | XMS_ITS | Clinical Summary ---
Author Organization [facility] Address [address] [place] [address] Phone Care Team Providers Care Retail Salesperson Name Role Phone Med Whiteside Primary Care Provider +1 [phone] Allergies No known active allergies Medications Magnesium [...] PM EST) Hemoglobin A1C 10.1(H) (4.0-5.6) % [facility] Comment: MONITORING: In known diabetic patients, hemoglobin A1c targets should be discussed with health care provider. DIAGNOSTIC USE: ??The [place] Diabetes Association (ADA) and the World Health [...] Supplement 1 Testing performed or reported by [facility], a Service of [facility], [address] [place] [address] Luis Angel Busch MD, Scrap Burner [facility]# [id number] 09/27/2023 12:5 0 PM EST 09/27/2023 12:52 PM EST Rasta Gan MD LAB BLOOD ORDERABLES Beverly hayes Result [facility] from Last 3 Months or Most Recently Relevant to Health Maintenance Insurance [place] [address] Care Teams Retail Salesperson Relationship Specialty Start Date End Date Med Whiteside PCP - General 12/16/22
== END ==
LOC: HO.CARD 14:28
PROVIDERS: PCP Nurse Practitioner Family; Visit Provider Nurse Practitioner Family
DX: I51.7 Cardiomegaly (principal); R41.89 Other symptoms and signs involving cognitive functions and awareness
CPT/HCPCS: 93306

== ENCOUNTER → 2024-12-26 14:31 | Outpatient (BNV) | payer MEDICARE, SELFPAY | PROVIDERS: PCP Nurse Practitioner Family; Visit Provider Internal Medicine Cardiovascular Disease | DX: I51.89 Other ill-defined heart diseases (principal) | CPT/HCPCS: 93306 ==

== ENCOUNTER 2024-12-27 12:41 | Outpatient (REF) | payer MEDICARE, SELFPAY ==
--- OUTSIDE RECORDS SUMMARY | 2024-12-27 15:00 | XMS_ITS | Clinical Summary ---
Author Organization [facility] Address [address] [place] [address] Phone Care Team Providers Care Chucking Lathe Operator Name Role Phone Med Whiteside Primary Care Provider +1 -[phone] Allergies No known active allergies Medications Magnesium [...] PM EST) Hemoglobin A1C 10.1(H) (4.0-5.6) % [facility] Comment: MONITORING: In known diabetic patients, hemoglobin A1c targets should be discussed with health care provider. DIAGNOSTIC USE: ??The [place] Diabetes Association (ADA) and the World Health [...] Supplement 1 Testing performed or reported by [facility], a Service of [facility], [address] [place] [address] Luis Angel Busch MD, Direct Sales Representative [facility]# [id number] 09/27/2023 12:5 0 PM EST 09/27/2023 12:52 PM EST Rasta Gan MD LAB BLOOD ORDERABLES Beverly hayes Result [facility] from Last 3 Months or Most Recently Relevant to Health Maintenance [place] [place] [address] Care Teams Chucking Lathe Operator Relationship Specialty Start Date End Date Med Whiteside PCP - General 12/16/22
== END 2024-12-27 12:42 | disposition home or self-care (01) ==
LOC: HO.SH 12:41
PROVIDERS: Visit Provider Nurse Practitioner Family
DX: Z01.118 Encounter for examination of ears and hearing with other abnormal findings (principal); H90.3 Sensorineural hearing loss, bilateral; H93.11 Tinnitus, right ear
CPT/HCPCS: 92557; 92567

== ENCOUNTER 2025-01-02 13:41 | Outpatient (REF) | payer MEDICARE, SELFPAY ==
--- OUTSIDE RECORDS SUMMARY | 2025-01-02 16:39 | XMS_ITS | Clinical Summary ---
Author Organization [facility] Address [address] [place] [address] Phone Care Team Providers Care Cassandra Developer Name Role Phone Med Whiteside Primary Care Provider +1 [phone] Allergies No known active allergies Medications Magnesium [...] PM EST) Hemoglobin A1C 10.1(H) (4.0-5.6) % [facility] Comment: MONITORING: In known diabetic patients, hemoglobin A1c targets should be discussed with health care provider. DIAGNOSTIC USE: ??The [place] Diabetes Association (ADA) and the World Health [...] Supplement 1 Testing performed or reported by [facility], a Service of [facility], [address] [place] [address] Luis Angel Busch MD, Auxiliary Operator [facility]# [id number] 09/27/2023 12:5 0 PM EST 09/27/2023 12:52 PM EST Rasta Gan MD LAB BLOOD ORDERABLES Beverly hayes Result [facility] from Last 3 Months or Most Recently Relevant to Health Maintenance [place] [address] [place] [address] Care Teams Cassandra Developer Relationship Specialty Start Date End Date Med Whiteside PCP - General 12/16/22
[2025-01-02 19:03] LABS: Anion Gap 11 (12-20); Blood Urea Nitrogen 22 mg/dL (9-16); Carbon Dioxide 23 mmol/L (22-29); Chloride 108 mmol/L (96-108); Estimated Glomerular Filt Rate 51; Sodium 138 mmol/L (135-145)
== END 2025-01-02 13:42 | disposition home or self-care (01) ==
LOC: HO.WFDLDS 13:41
PROVIDERS: Visit Provider Internal Medicine Nephrology
DX: E11.22 Type 2 diabetes mellitus with diabetic chronic kidney disease (principal); N18.31 Chronic kidney disease, stage 3a; E11.59 Type 2 diabetes mellitus with other circulatory complications; I15.2 Hypertension secondary to endocrine disorders
CPT/HCPCS: 36415; 80051; 82565; 84520

== ENCOUNTER 2025-01-12 10:12 | Outpatient (AMB) | payer OTHER, SELFPAY ==
--- NOTE | 2025-01-12 10:15 | HO.NEPHOV_ITS ---
Vital Signs 01/12/25 10:20 Height 5 ft 3 in Weight 166 lb 4 oz BMI 29.4 BP 120/62 Blood Pressure Location Rt brachial Position Sitting Pulse 66 Pulse Source Pulse Oximeter Pulse Oximetry (%) 99 Oxygen Delivery Method Room Air Intake Visit Reasons: CKD-CONF Data Visualization Developer Required: No Accompanied by: Self / Same As Patient Allergies No Known Allergies Allergy (Verified 01/12/25 10:20) HPI Comments Details: 73 year old male with DM2 as well as CKD3a along with HTN, carcinoma in situ of prostate, HLD as well as PAD whom I had the privilege to see in follow up for CKD. He denies retinopathy. He is on metformin and glipizide. He has no hypoglycemia. He denies any edema, CAD, carotid stenosis, CVA or CHF. He denies excessive NSAID's. He has no H/O hypercalcemia or paraproteinemia. His last serum serum creatinine has been 1.68. He denies epistaxis, recurrent sinusitis, hematuria, weight loss, dysuria , chest pain, SOB, PND , orthopnea or orthostatic symptoms. His recent renal USS showed a mass on the left kidney. He could not afford Jardiance. He feels well. [facility] Medical History Radiculopathy affecting upper extremity Lumbar strain Sciatica, left side Diabetes Cervicalgia Surgical History History of prostate surgery Family History Father Diabetes Mother Diabetes Social History Household Members: Spouse Household Members Other:: dog Housing: Apartment Are you a primary skin care technician to a significant other at home: No Do you presently have visiting nurse or other home services: No 75 years or older and lives alone: No Alcohol intake: current Alcohol intake frequency: holidays/special occasions only Alcohol type: beer Patient Tobacco Use Status: Never used Tobacco e-Cigarette/Vaping Use: Never Used service: No Current occupational status: employed and retired 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 Cognitive needs: No Hearing needs: No Vision needs: Yes (Patient wears glasses.) Results Reviewed Nephrology Results: Hgb 13.4 g/dl (14.0-18.0) L 11/14/24 WBC 6.6 X10*3/uL (4.8-10.8) 11/14/24 Plt Count 281 X10*3/uL (160-400) 11/14/24 Sodium 138 mmol/L (135-145) 01/02/25 Potassium 4.0 mmol/L (3.3-5.1) 01/02/25 Chloride 108 mmol/L (96-108) 01/02/25 Carbon Dioxide 23 mmol/L (22-29) 01/02/25 BUN 22 mg/dL (9-16) H 01/02/25 Creatinine 1.38 mg/dL (0.5-1.4) 01/02/25 Calcium 9.0 mg/dL (8.4-10.2) 11/14/24 Assessment & Plan Assessment & Plan (1) Diabetes mellitus with stage 3a chronic kidney disease, without long-term current use of insulin: Code(s): E11.22 - Type 2 diabetes mellitus with diabetic chronic kidney disease; N18.31 - Chronic kidney disease, stage 3a Category: Medical Qualifiers: Diabetes mellitus type: type 2 Qualified Code(s): E11.22 - Type 2 diabetes mellitus with diabetic chronic kidney disease; N18.31 - Chronic kidney disease, stage 3a Plan 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 He has proteinuria. He is on ARB. I started him on Jardiance 10 mg but he could not afford co pay & he did not get it. . His imaging studies showed left renal mass. His MRI of kidney did not show any mass. He should avoid NSAID's and maintain good hydration. He may need a renal biopsy. All these have been discussed in detail. All questions answered & follow up given. Orders: Orders Creatinine 4 Months E11.22 - Type 2 diabetes mellitus with diabetic chronic kidney disease, N18.31 - Chronic kidney disease, stage 3a Protein Creatinine Ratio, Ur 4 Months E11.22 - Type 2 diabetes mellitus with diabetic chronic kidney disease, N18.31 - Chronic kidney disease, stage 3a Blood Urea Nitrogen 4 Months E11.22 - Type 2 diabetes mellitus with diabetic chronic kidney disease, N18.31 - Chronic kidney disease, stage 3a Electrolytes 4 Months E11.22 - Type 2 diabetes mellitus with diabetic chronic kidney disease, N18.31 - Chronic kidney disease, stage 3a Coding Level of Care Code Est Pt Level 4 (81469) Diagnoses Type 2 diabetes mellitus with stage 3a chronic kidney disease, without long-term current use of insulin E11.22; N18.31 Diabetes mellitus type: type 2
[2025-01-12 10:20] VITALS: BP 120/62; PULSE 66; O2SAT 99; BMI 29.4
--- OUTSIDE RECORDS SUMMARY | 2025-01-12 12:04 | XMS_ITS | Clinical Summary ---
Author Organization [facility] Address [address] [place] [address] Phone Care Team Providers Care Rope Silica Machine Operator Name Role Phone Med Whiteside Primary Care Provider +1 [phone] Allergies No known active allergies Medications Magnesium [...] Foot Exam 03/09/2023 Diabetes: Hemoglobin A1C 12/27/2023 09/27/2023, 08/ Influenza Vaccine (#1) 2024 2, 08/08/2020, 07/25/2019, Additional history exists Pneumococcal Vaccine: 65+ Years [...] PM EST) Hemoglobin A1C 10.1(H) (4.0-5.6) % [facility] Comment: MONITORING: In known diabetic patients, hemoglobin A1c targets should be discussed with health care provider. DIAGNOSTIC USE: ??The [place] Diabetes Association (ADA) and the World Health [...] Supplement 1 Testing performed or reported by [facility], a Service of [facility], [address] [place] [address] Luis Angle Busch MD, Manager Meat [facility]# [id number] 09/27/2023 12:5 0 PM EST 09/27/2023 12:52 PM EST us Rasta Gan MD LAB BLOOD ORDERABLES Beverly hayes Result [facility] from Last 3 Months or Most Recently Relevant to Health Maintenance [place] [address] [place] [address] Care Teams Rope Silica Machine Operator Relationship Specialty Start Date End Date Med Whiteside PCP - General 12/16/22
== END 2025-01-12 10:32 | disposition home or self-care (01) ==
LOC: HO.HKA 10:13
PROVIDERS: PCP Nurse Practitioner Family; Visit Provider Internal Medicine Nephrology
DX: E11.22 Type 2 diabetes mellitus with diabetic chronic kidney disease (principal); N18.31 Chronic kidney disease, stage 3a
CPT/HCPCS: 99214

== ENCOUNTER → 2025-02-19 07:30 | Outpatient (REF) | payer OTHER, SELFPAY ==
--- OUTSIDE RECORDS SUMMARY | 2025-02-19 07:33 | XMS_ITS | Clinical Summary ---
Author Organization [facility] Address [address] [place] [address] Phone Care Team Providers Care Wireless Team Member Name Role Phone Med Whiteside Primary Care Provider +1 [phone] Allergies No known active allergies Medications Magnesium [...] Exam 03/09/2023 Diabetes: Hemoglobin A1C 12/27/2023 09/27/2023, 05/25 Influenza Vaccine (Season Ended) 2025 07/13/2022, 08/08/2020, 07/25/2019, Additional history exists Pneumococcal Vaccine: 50+ Years Completed 03/24/2019, 03/17/2018, 05/15/2003 Hepatitis B Vaccine Aged Out No longe r eligible based on patient's age to complete this topic Procedures Procedure Name Priority Date/Time Associated Diagnosis Comments HEMOGLOBIN A1C Routine 09/27/2023 12:50 PM EST from Last 3 Months or Most Recently Relevant to Health Maintenance Results * (ABNORMAL) Hemoglobin A1c (09/27/2023 12:50 PM EST) Hemoglobin A1C 10.1(H) (4.0-5.6) % [facility] Comment: MONITORING: In known diabetic patients, hemoglobin A1c targets should be discussed with health care provider. DIAGNOSTIC USE: ??The [place] Diabetes Association (ADA) and the World Health [...] Supplement 1 Testing performed or reported by [facility], a Service of [facility], [address] [place] [address] Luis Angel Busch MD, Merchandising Stock Associate [facility]# [id number] 09/27/2023 12:5 0 PM EST 09/27/2023 12:52 PM EST us Rasta Gan MD LAB BLOOD ORDERABLES Beverly hayes Result [facility] from Last 3 Months or Most Recently Relevant to Health Maintenance [place] [address] Care Teams Wireless Team Member Relationship Specialty Start Date End Date Med Whiteside PCP - General 12/16/22
== END ==
LOC: HO.SL 07:30
PROVIDERS: PCP Nurse Practitioner Family; Visit Provider Nurse Practitioner Family
DX: R41.89 Other symptoms and signs involving cognitive functions and awareness (principal); I51.7 Cardiomegaly; G47.19 Other hypersomnia
CPT/HCPCS: 95806

== ENCOUNTER → 2025-02-19 08:07 | Outpatient (BNV) | payer OTHER, SELFPAY | PROVIDERS: PCP Nurse Practitioner Family; Visit Provider Internal Medicine | DX: G47.33 Obstructive sleep apnea (adult) (pediatric) (principal) | CPT/HCPCS: 95806 ==

== ENCOUNTER 2025-02-23 10:25 | Outpatient (REF) | payer OTHER, SELFPAY ==
--- OUTSIDE RECORDS SUMMARY | 2025-02-23 12:30 | XMS_ITS | Clinical Summary ---
Author Organization [facility] Address [address] [place] [address] Phone Care Team Providers Care Social Sciences Professor Name Role Phone Med Whiteside Primary Care Provider [phone] [phone] Allergies No known active allergies Medications Magnesium [...] PM EST) Hemoglobin A1C 10.1(H) (4.0-5.6) % [facility] Comment: MONITORING: In known diabetic patients, hemoglobin A1c targets should be discussed with health care provider. DIAGNOSTIC USE: ??The [place] Diabetes Association (ADA) and the World Health [...] Supplement 1 Testing performed or reported by [facility], a Service of [facility], [address] [place] [address] Luis Angel Busch MD, Cover Operator [facility]# [id number] 09/27/2023 12:5 0 PM EST 09/27/2023 12:52 PM EST us Rasta Gan MD LAB BLOOD ORDERABLES Beverly hayes Result [facility] from Last 3 Months or Most Recently Relevant to Health Maintenance [place] [address] Care Teams Social Sciences Professor Relationship Specialty Start Date End Date Med Whiteside PCP - General 12/16/22
[2025-02-23 15:16] LABS: Creatinine Urine 84.41 mg/dL; Microalbum/Creatinine Ratio Ur 86.4 ug/mg cr (<30)
== END 2025-02-23 10:26 | disposition home or self-care (01) ==
LOC: HO.LAB 10:25
PROVIDERS: PCP Nurse Practitioner Family; Visit Provider Nurse Practitioner Family
DX: E11.8 Type 2 diabetes mellitus with unspecified complications (principal)
CPT/HCPCS: 82043; 82570; 83036

== ENCOUNTER 2025-02-23 10:25 | Outpatient (AMB) | payer OTHER, SELFPAY ==
--- NOTE | 2025-02-23 11:09 | A.OFFPC_ITS ---
Vital Signs 3 02/23/25 11:15 Height 5 ft 3 in Weight 168 lb 6 oz BMI 29.8 BP 138/74 Blood Pressure Location Rt brachial Position Sitting Respiration 12 Pulse 71 Pulse Source Pulse Oximeter Temp 97.4 F Temp Source Oral Pulse Oximetry (%) 98 Oxygen Delivery Method Room Air Intake Visit Reasons: 40 min fu echo sleep study and hearing results Intake Note: Follow up to review sleep study and hearing results Cloth Bleaching Range Operator Chief Required: No Allergies No Known Allergies Allergy (Verified 02/23/25 11:10) Medication List - Last Reconciled 02/23/25 by Ann Carr, ORGAN FIXER- aspirin 81 mg PO DAILY atorvastatin 80 mg PO DAILY betamethasone dipropionate 0.05% 1 appl topical BID PRN blood sugar diagnostic (FreeStyle Lite Strips) As directed TWICE PER DAY blood-glucose meter (FreeStyle Lite Meter kit) As directed cyanocobalamin (vitamin B-12) 2,000 mcg (2 x 1,000 mcg) PO DAILY ferrous sulfate 325 mg PO DAILY fluticasone propionate 50 mcg/actuation (Allergy Relief (fluticasone)) 1 spray intranasal BID glipizide 2.5 mg PO BID 90 days lancets (FreeStyle Lancets) As directed losartan 25 mg PO DAILY melatonin 3 mg PO BEDTIME PRN metformin 500 mg PO BID metoprolol tartrate 25 mg PO BID 90 days omeprazole 20 mg PO DAILY 90 days thiamine HCl (vitamin B1) 100 mg PO DAILY Tobacco use date assessed: 12/08/24 Fall risk assessment: No Falls in past year Last assessed Fall Risk: 02/23/25 Dental Screening Dental Screen Date: 12/08/24 HPI HPI Comments 2 History of Present Illness0 Details 74-year-old male with chronic back pain with radiculopathy, DM2, diabetic nephropathy, CKD3a, HTN, carcinoma in situ of prostate, HLD, PVD, daily etoh use, b12 def, iron def anemia, fatty liver , diverticluosis , LVH History of Present Illness - The patient is a 74-year-old male pres enting for fu on testing done to eval cognitive impairment. - Originally identified during a wellnes s visit. - Under evaluation with a completed echo cardiogram and sleep study. - Type 2 Diabetes Mellitus with current A1c of 6.8%; prior measurements include 6.1%, 7.5%, and 8.1%. - Current management includes glipizide and metformin; insurance modifications to glimepiride to be implemented. - Sleep Apnea diagnosed via sleep study; treatment with a CPAP machine recommended. See below. - Essential Hypertension managed with lo sartan and metoprolol. - Sensorineural Hearing Loss: recommende d consistent hearing aid usage to improve cognition. - Hyperlipidemia managed with atorvastat in. - Tinnitus advised to be managed with he aring aids. - Iron Deficiency Anemia supplemented wi th ferrous sulfate. Exam: awake alert, appears younger than stated age, very pleasant scleras nonicteric bilat TM intact clouding bilat R>L no carotid bruit bilat RRR, 1/6 murmur left sternal border EKg shows LVH LS CTAB Abd soft, nontender, normoactive bs x 3 No CVAT bilat BLE skin intact, hairless, varicose veins, decreased PP bilat Mood and affect appropriate Discussion Notes I informed the patient that the echocardiogram results were normal and reassuring. We discussed the identification of sleep apnea from the sleep study, which demonstrated low nocturnal oxygen levels and episodes of apnea. I recommended the immediate initiation of CPAP therapy and explained the importance of maintaining consistent oxygen levels to prevent cognitive and cardiac complications. Regarding diabetes management, I noted the insurance mandate to switch from glipizide to glimepiride, and clarified this new prescription to be glimepiride 2 mg once daily. We discussed possible concerns about metformin arising from patient inquiries, confirming its continued use while addressing any related kidney considerations. Hearing aid compliance was emphasized, linking auditory health to cognitive improvement. The patient was instructed to follow up in 90 days and contact me through the portal if any prescription refills are required. Assessment and Plan 1. Cognitive Impairment Addressed through consistent hearing aid usage and post-CPAP therapy evaluation. Patient made aware for continued coverage of CPAP therapy, documentation of compliance, including a [id number] re-evaluation by the treating physician and objective evidence of adherence (4 hours per night for 70% of nights in a 30-day period), is?required between the 31 and 90 day of therapy.? The patient is in agreement to start CPAP therapy. My office will coordinate a f/u in about 60 days. Will need to re- eval after he starts with an in lab sleep study, specific to hypoxemia. 2. Type 2 Diabetes Mellitus Management includes transitioning to glimepiride due to insurance constraints, maintaining metformin, and monitoring kidney function. 3. Sleep Apnea Initiate CPAP therapy via [facility] to improve symptoms and prevent further complications. 4. Essential Hypertension Current treatment with losartan and metoprolol to continue. 5. Sensorineural Hearing Loss Use of hearing aids to address cognitive symptoms and check insurance coverage for affordability. 6. Hyperlipidemia Continue atorvastatin therapy. 7. Tinnitus Managed with hearing aids. 8. Iron Deficiency Anemia Continue iron supplementation (ferrous sulfate). Patient Instructions - Change from glipizide to glimepiride 2 mg daily when your current supply runs out. - Use your hearing aids every day to hel p with hearing. - Expect a call about your CPAP machine and start using it as directed. - Keep taking your other prescribed medi cines unless told otherwise. - Follow up with us in 3 months. - Call if you have questions or need med icine refills. Consent Patient was informed and verbally consented to the use of an ambient scribe for clinic note documentation during this visit. Total time spent caring for the patient today was 42 minutes. This includes time spent before the visit reviewing the chart, time spent during the visit, and time spent after the visit on documentation, reviewing laboratory results, diagnostic imaging, medications, performing a medically necessary evaluation, counseling on diagnoses, care coordination, ordering appropriate tests, ordering appropriate medications, review of tests performed by other providers, reporting test results with the patient, communication with other healthcare providers. ECHO Results SLEEP STUDY RESULTS: CPAP ORDER: COUNT INCLUDES THE [facility] Medical History (Updated 02/24/25 @ 17:37 by Ann Carr, [facility]) Cervicalgia Diabetes Lumbar strain Radiculopathy affecting upper extremity Sciatica, left side Surgical History (Updated 02/16/25 @ 08:48 by Cristin Bender) History of colonoscopy (~08/02/15) History of prostate surgery Family History Father Diabetes Mother Diabetes Social History Household Members: Spouse Household Members Other:: dog Housing: Apartment Are you a primary director long term care to a significant other at home: No Do you presently have visiting nurse or other home services: No 75 years or older and lives alone: No Alcohol intake: current Alcohol intake frequency: holidays/special occasions only Alcohol type: beer Patient Tobacco Use Status: Never used Tobacco e-Cigarette/Vaping Use: Never Used service: No Current occupational status: employed and retired 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 Cognitive needs: No Hearing needs: No Vision needs: Yes (Patient wears glasses.) Questionnaire Thrive Questionnaire Date Thrive assessed: 12/08/24 I am a: Patient What is your living situation today?: I choose not to answer this question Within the past 12 months, did the food you bought not last and you didn't have the money to get more?: I choose not to answer this question Within the past 12 months, did you worry whether your food would run out before you got money to buy more?: Never true Do you have trouble paying for medicines?: No Do you have trouble getting transportation to medical appointments?: No Do you have trouble paying your heating and electricity bill?: No Do you have trouble taking care of your child, family member or friend?: No Do you have trouble with day-to-day activities such as bathing, preparing meals, shopping, managing finances, etc.?: No Are you currently unemployed and looking for a job?: No Are you interested in more education?: No Please select the resources that you would like help with: None Currently or been in a relationship where the following occur: I choose not to answer THRIVE Score: 0 ZACH-7 AMB Questionnaire AZCH-7 Date ZACH - 7 assessed: 12/08/24 Source: Developed by Drs. Adeel Lal, Avani Romano, Zane Brown and colleagues, with an educational octavia from [employer]. Physical exam (Primary Care) Vital Signs: Last Vital Signs Temp 97.4 F 02/23/25 11:15 Pulse 71 02/23/25 11:15 Resp 12 02/23/25 11:15 BP 138/74 02/23/25 11:15 Pulse Ox 98 02/23/25 11:15 Oxygen Delivery Method Room Air 02/23/25 11:15 BMI result Body Mass Index 29.8 Tobacco/Smoking Status: Tobacco use Status Tobacco use date assessed 12/08/24 02/23/25 11:09 Patient Tobacco Use Status Never used Tobacco 02/23/25 11:09 e-Cigarette/Vaping Use Never Used 02/23/25 11:09 Thrive Assessment: Date of Thrive Assessment Date Thrive assessed 12/08/24 02/23/25 11:09 Currently or been in a relationship where the following occur: I choose not to answer Results AMB Hemoglobin A1c 2 AMB Hemoglobin A1c 6.8 % Last Edit by Aleyda Palomares MA on 02/23/25 11:38 Results Reviewed Results Reviewed: Laboratory Last Values Hgb A1c (Clinic) 6.8 % (4.0-6.0) H 02/23/25 11:31 RUN: 02/23/25 1543 PAGE 1 [facility] [address] [place] [id number] Forepart Rasper: Kermit Donato M.D. Specimen Inquiry L Name: Bola Cee Age/Sex: 74/M : 1950 Unit#: [id number] Attend Dr: Ann Carr Re02/23/25 Status: REG REF Location: [facility] D isch: SPEC : [id number] MANDI: 02/23/25-1025 STATUS: COMP REQ : [id number] RECD: 02/23/25-[address]: Ann Carr COMP: 02/23/25-1516 ENTERED: 02/23/25-[address] [facility] [address]: ORDERED: MICARU Test Result Flag Reference Creat, Ur 84.41 mg/dL Microalbumin Ur 73.0 mg/L Alb/Creat Ratio 86.4 H <30 ug/mg cr Albumin/Creatinine Ratio Reference Ranges: Normal: < 30 ug/mg creatinine Microalbuminuria: 30 - 300 ug/mg creatinine Clinical Albuminuria: > 300 ug/mg creatinine END OF REPORT Coding Level of Care Code Est Pt Level 5 (73791) Complex EM visit Add On G2211 Diagnoses Diabetes mellitus type 2 with complications E11.8 NIKKI on CPAP G47.33 Cognitive impairment R41.89 Type 2 diabetes mellitus with stage 3a chronic kidney disease, without long-term current use of insulin E11.22; N18.31 Diabetes mellitus type: type 2 Mixed hyperlipidemia E78.2 Hyperlipidemia type: mixed hyperlipidemia Hypertension complicating diabetes E11.59; I15.2 Other iron deficiency anemia D50.8 Iron deficiency anemia type: other iron deficiency LVH (left ventricular hypertrophy) I51.7 Sensorineural hearing loss (SNHL) of both ears H90.3 Laterality: bilateral Tinnitus, right ear H93.11 Assessment & Plan Assessment & Plan (1) Diabetes mellitus type 2 with complications: Comment: with CKD and HLD Diabetic eye exam completed in 2023. Negative for retinopathy. Code(s): E11.8 - Type 2 diabetes mellitus with unspecified complications Category: Medical (2) NIKKI on CPAP: Onset Date: 01/2025 Code(s): G47.33 - Obstructive sleep apnea (adult) (pediatric) Category: Medical (3) Cognitive impairment: Code(s): R41.89 - Other symptoms and signs involving cognitive functions and awareness Category: Medical (4) Diabetes mellitus with stage 3a chronic kidney disease, without long-term current use of insulin: Code(s): E11.22 - Type 2 diabetes mellitus with diabetic chronic kidney disease; N18.31 - Chronic kidney disease, stage 3a Category: Medical Qualifiers: Diabetes mellitus type: type 2 Qualified Code(s): E11.22 - Type 2 diabetes mellitus with diabetic chronic kidney disease; N18.31 - Chronic kidney disease, stage 3a (5) Hyperlipidemia: Comment: Goal LDL less than 70 currently on atorvastatin 80 mg p.o. daily. On daily aspirin 81 mg Code(s): E78.5 - Hyperlipidemia, unspecified Category: Medical Qualifiers: Hyperlipidemia type: mixed hyperlipidemia Qualified Code(s): E78.2 - Mixed hyperlipidemia (6) Hypertension complicating diabetes: Code(s): E11.59 - Type 2 diabetes mellitus with other circulatory complications; I15.2 - Hypertension secondary to endocrine disorders Category: Medical (7) Iron deficiency anemia: Code(s): D50.9 - Iron deficiency anemia, unspecified Category: Medical Qualifiers: Iron deficiency anemia type: other iron deficiency Qualified Code(s): D 50.8 - Other iron deficiency anemias (8) LVH (left ventricular hypertrophy): Comment: EKG 11/20/24, SLEEP STUDY/ECHO 01/2025 echo wnl, sleep study + Code(s): I51.7 - Cardiomegaly Category: Medical (9) Sensorineural hearing loss: Comment: hearing test 2020 mild to moderate severe hearing loss bilat December 2024 hearing exam @ [facility] Code(s): H90.5 - Unspecified sensorineural hearing loss Category: Medical Qualifiers: Laterality: bilateral Qualified Code(s): H90.3 - Sensorineural hearing loss, bilateral (10) Tinnitus, right ear: Code(s): H93.11 - Tinnitus, right ear Category: Medical Plan . Orders: Orders 2 AMB Hemoglobin A1c 02/23/25 E11.8 - Type 2 diabetes mellitus with unspecified complications, Z13.9 - Encounter for screening, unspecified Microalbumin, Random (w Creat) 02/23/25 E11.8 - Type 2 diabetes mellitus with unspecified complications Medications: New 2 glimepiride 2 mg PO DAILY 90 tabs 1RF Discontinued 2 glipizide Discontinued Reason: Insurance Denied 2.5 mg PO BID 90 days 180 tabs 1RF
[2025-02-23 11:15] VITALS: BP 138/74; PULSE 71; RESP 12; TEMP 36.3; O2SAT 98; BMI 29.8
--- OUTSIDE RECORDS SUMMARY | 2025-02-23 11:29 | XMS_ITS | Clinical Summary ---
Author Organization [facility] Address [address] [place] [address] Phone Care Team Providers Care News Operations Manager Name Role Phone Med Whiteside Primary Care Provider [phone] [phone] Allergies No known active allergies Medications Magnesium [...] PM EST) Hemoglobin A1C 10.1(H) (4.0-5.6) % [facility] Comment: MONITORING: In known diabetic patients, hemoglobin A1c targets should be discussed with health care provider. DIAGNOSTIC USE: ??The [place] Diabetes Association (ADA) and the World Health [...] Supplement 1 Testing performed or reported by [facility], a Service of [facility], [address] [place] [address] Luis Angel Busch MD, Flooring Sales Manager [facility]# [id number] 09/27/2023 12:5 0 PM EST 09/27/2023 12:52 PM EST us Rasta Gan MD LAB BLOOD ORDERABLES Beverly hayes Result [facility] from Last 3 Months or Most Recently Relevant to Health Maintenance [place] [address] Care Teams News Operations Manager Relationship Specialty Start Date End Date Med Whiteisde PCP - General 12/16/22
== END 2025-02-23 11:51 | disposition home or self-care (01) ==
LOC: HO.HMCFM 10:26
PROVIDERS: PCP Nurse Practitioner Family; Visit Provider Nurse Practitioner Family
DX: Z13.9 Encounter for screening, unspecified (principal); E11.8 Type 2 diabetes mellitus with unspecified complications

== ENCOUNTER 2025-05-07 13:21 | Outpatient (REF) | payer OTHER, SELFPAY ==
--- OUTSIDE RECORDS SUMMARY | 2025-05-07 14:27 | XMS_ITS | Clinical Summary ---
Author Organization [facility] Address [address] [place] [address] Phone Care Team Providers Care Certified Recreational Therapist Name Role Phone Med Whiteside Primary Care Provider +1 [phone] Allergies No known active allergies Medications Magnesium [...] A1C 12/27/2023 09/27/2023, 08/ Influenza Vaccine (#1) 2025 2, 08/08/2020, 07/25/2019, Additional history exists Pneumococcal [...] PM EST) Hemoglobin A1C 10.1(H) (4.0-5.6) % [facility] Comment: MONITORING: In known diabetic patients, hemoglobin A1c targets should be discussed with health care provider. DIAGNOSTIC USE: The [place] Diabetes Association (ADA) and the World Health [...] Supplement 1 Testing performed or reported by [facility], a Service of [facility], [address] [place] [address] Luis Angel Busch MD, Foundation Assistant [facility]# [id number] 09/27/2023 12:5 0 PM EST 09/27/2023 12:52 PM EST us Rasta Gan MD LAB BLOOD ORDERABLES Beverly freddy Result [facility] from Last 3 Months or Most Recently Relevant to Health Maintenance Insurance Care Teams Certified Recreational Therapist Relationship Specialty Start Date End Date Med Whiteside PCP - General 12/16/22
[2025-05-07 16:05] LABS: Anion Gap 14 (12-20); Blood Urea Nitrogen 28 mg/dL (9-16); Carbon Dioxide 25 mmol/L (22-29); Chloride 105 mmol/L (96-108); Estimated Glomerular Filt Rate 39; Potassium 4.2 mmol/L (3.3-5.1); Sodium 140 mmol/L (135-145)
[2025-05-07 16:39] LABS: Protein/Creatinine Ratio, Ur 0.17 (<0.2); Total Protein Urine Random 21 mg/dL (<12)
== END 2025-05-07 13:22 | disposition home or self-care (01) ==
LOC: HO.WFDLDS 13:21
PROVIDERS: Visit Provider Internal Medicine Nephrology
DX: E11.22 Type 2 diabetes mellitus with diabetic chronic kidney disease (principal); N18.31 Chronic kidney disease, stage 3a
CPT/HCPCS: 36415; 80051; 82565; 82570; 84156; 84520

== ENCOUNTER 2025-05-11 09:41 | Outpatient (AMB) | payer OTHER, SELFPAY ==
--- OUTSIDE RECORDS SUMMARY | 2025-05-11 09:51 | XMS_ITS | Clinical Summary ---
Author Organization [facility] Address [address] [place] [address] Phone Care Team Providers Care Shipping Packer Name Role Phone Med Whiteside Primary Care Provider +1 [phone] Allergies No known active allergies Medications Magnesium [...] PM EST) Hemoglobin A1C 10.1(H) (4.0-5.6) % [facility] Comment: MONITORING: In known diabetic patients, hemoglobin A1c targets should be discussed with health care provider. DIAGNOSTIC USE: The [place] Diabetes Association (ADA) and the World Health [...] [facility], a Service of [facility], [address] [place] [address] Luis Angel Busch MD, Faro Dealer [facility]# [id number] 09/27/2023 12:5 0 PM EST 09/27/2023 12:52 PM EST us Rasta Gan MD LAB BLOOD ORDERABLES Beverly freddy Result [facility] from Last 3 Months or Most Recently Relevant to Health Maintenance Insurance Care Teams Shipping Packer Relationship Specialty Start Date End Date Med [place]ide PCP - General 12/16/22
--- NOTE | 2025-05-11 09:53 | HO.NEPHOV_ITS ---
Vital Signs 05/11/25 09:54 Height 5 ft 3 in Weight 177 lb 2 oz BMI 31.4 BP 122/80 Blood Pressure Location Rt brachial Position Sitting Pulse 78 Pulse Source Pulse Oximeter Pulse Oximetry (%) 98 Oxygen Delivery Method Room Air Intake Visit Reasons: 4 MO FU-[facility] Solar Project Manager Required: No Accompanied by: Self / Same As Patient Allergies No Known Allergies Allergy (Verified 05/11/25 09:54) HPI Comments Details: 73 year old male with DM2 as well as CKD3a along with HTN, carcinoma in situ of prostate, HLD as well as PAD whom I had the privilege to see in follow up for CKD. He denies retinopathy. He is on metformin and glipizide. He has no hypoglycemia. He denies any edema, CAD, carotid stenosis, CVA or CHF. He denies excessive NSAID's. He has no H/O hypercalcemia or paraproteinemia. His last serum serum creatinine has been 1.68. He denies epistaxis, recurrent sinusitis, hematuria, weight loss, dysuria , chest pain, SOB, PND , orthopnea or orthostatic symptoms. His recent renal USS showed a mass on the left kidney but had follow up imaging and mass was not concerning. He could not afford Jardiance. His serum creatinine has gone up a bit. He feels well. [facility] Medical History (Updated 02/24/25 @ 17:37 by Ann Carr, [facility]) Radiculopathy affecting upper extremity Lumbar strain Sciatica, left side Diabetes Cervicalgia Surgical History History of colonoscopy (~08/02/15) History of prostate surgery Family History Father Diabetes Mother Diabetes Social History Household Members: Spouse Household Members Other:: dog Housing: Apartment Are you a primary daycare provider to a significant other at home: No Do you presently have visiting nurse or other home services: No 75 years or older and lives alone: No Alcohol intake: current Alcohol intake frequency: holidays/special occasions only Alcohol type: beer Patient Tobacco Use Status: Never used Tobacco e-Cigarette/Vaping Use: Never Used service: No Current occupational status: employed and retired 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 Cognitive needs: No Hearing needs: No Vision needs: Yes (Patient wears glasses.) Review of Systems Const All systems reviewed & are unremarkable except as noted in HPI and below Physical Exam Vital Signs: Last Vital Signs Pulse 78 05/11/25 09:54 BP 122/80 05/11/25 09:54 Pulse Ox 98 05/11/25 09:54 Oxygen Delivery Method Room Air 05/11/25 09:54 BMI result Body Mass Index 31.4 Const General: comfortable and no acute distress Orientation/consciousness: patient oriented x3 HEENT Head: Yes normocephalic Mouth: Normal oral and palatal mucosa present Eyes EOM: EOMs intact bilaterally Neck Neck: Yes supple Resp Auscultation: clear to auscultation bilaterally Cardio Jugular venous distension: no JVD Rate: regular rate GI Palpation (GI): Soft to palpation Auscultation: normal bowel sounds General: Yes no CVA tenderness Back/Spine/Pelvis Back: no CVA tenderness Skin General skin exam: no rashes or lesions noted Neuro General: patient oriented x3 and moves all extremities Extrem General: Yes no pedal edema Results Reviewed Nephrology Results: Sodium, (135-145) 140 mmol/L 05/07/25 Potassium, (3.3-5.1) 4.2 mmol/L 05/07/25 Chloride, (96-108) 105 mmol/L 05/07/25 Carbon Dioxide, (22-29) 25 mmol/L 05/07/25 BUN, (9-16) 28 mg/dL H 05/07/25 Creatinine, (0.5-1.4) 1.72 mg/dL H 05/07/25 Urine Creatinine 120.01 mg/dL 05/07/25 Protein/Creatinin Ratio, (<0.2) 0.17 05/07/25 Renal US 09/06/24 Assessment & Plan Assessment & Plan (1) Diabetes mellitus with stage 3a chronic kidney disease, without long-term current use of insulin: Code(s): E11.22 - Type 2 diabetes mellitus with diabetic chronic kidney disease; N18.31 - Chronic kidney disease, stage 3a Category: Medical Qualifiers: Diabetes mellitus type: type 2 Qualified Code(s): E11.22 - Type 2 diabetes mellitus with diabetic chronic kidney disease; N18.31 - Chronic kidney disease, stage 3a (2) Hypertension complicating diabetes: Code(s): E11.59 - Type 2 diabetes mellitus with other circulatory complications; I15.2 - Hypertension secondary to endocrine disorders Category: Medical Plan 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 He has proteinuria. He is on ARB. I started him on Jardiance 10 mg but he could not afford co pay & he did not get it. His serum creatinine has gone a bit . If it does not settle down, I shall hold his ARB until creatinine settles to baseline.His MRI of kidney did not show any mass. He should avoid NSAID's and maintain good hydration. He may need a renal biopsy. All these have been discussed in detail. All questions answered & follow up given. Orders: Orders Creatinine 3 Weeks E11.22 - Type 2 diabetes mellitus with diabetic chronic kidney disease, E11.59 - Type 2 diabetes mellitus with other circulatory complications, I15.2 - Hypertension secondary to endocrine disorders, N18.31 - Chronic kidney disease, stage 3a Blood Urea Nitrogen 3 Weeks E11.22 - Type 2 diabetes mellitus with diabetic chronic kidney disease, E11.59 - Type 2 diabetes mellitus with other circulatory complications, I15.2 - Hypertension secondary to endocrine disorders, N18.31 - Chronic kidney disease, stage 3a Electrolytes 3 Weeks E11.22 - Type 2 diabetes mellitus with diabetic chronic kidney disease, E11.59 - Type 2 diabetes mellitus with other circulatory complications, I15.2 - Hypertension secondary to endocrine disorders, N18.31 - Chronic kidney disease, stage 3a Coding Level of Care Code Est Pt Level 4 (98038) Diagnoses Type 2 diabetes mellitus with stage 3a chronic kidney disease, without long-term current use of insulin E11.22; N18.31 Diabetes mellitus type: type 2 Hypertension complicating diabetes E11.59; I15.2
[2025-05-11 09:54] VITALS: BP 122/80; PULSE 78; O2SAT 98; BMI 31.4
== END 2025-05-11 10:25 | disposition home or self-care (01) ==
LOC: HO.HKA 09:42
PROVIDERS: PCP Nurse Practitioner Family; Visit Provider Internal Medicine Nephrology
DX: E11.22 Type 2 diabetes mellitus with diabetic chronic kidney disease (principal); N18.31 Chronic kidney disease, stage 3a; E11.59 Type 2 diabetes mellitus with other circulatory complications; I15.2 Hypertension secondary to endocrine disorders
CPT/HCPCS: 99214

== ENCOUNTER 2025-05-30 12:22 | Outpatient (REF) | payer OTHER, SELFPAY ==
[2025-05-30 14:43] LABS: Hematocrit 39.7 % (42.0-52.0); Hemoglobin 13.9 g/dl (14.0-18.0); Mean Corpuscular HGB Conc 35.0 g/dl (31.0-36.0); Mean Corpuscular Hemoglobin 31.2 pg (27.0-33.0); Mean Corpuscular Volume 89.2 fL (80.0-98.0); NRBC Abs Auto 0.000 X10*3/uL (0.0-0.012); NRBC Pct Auto 0.0 /100WBC (0.0-0.2); Platelet Count 222 X10*3/uL (160-400); Red Blood Count 4.45 X10*6/uL (4.60-5.80); White Blood Count 7.3 X10*3/uL (4.8-10.8)
[2025-05-30 14:47] LABS: Cholesterol 199 mg/dL (<200); HDL Cholesterol 81 mg/dL (>40); Iron 105 mcg/dL (45-160); Percent Iron Saturation 31 % (15-50); Total Iron Binding Capacity 336 mcg/dL (228-428); Triglycerides 113 mg/dL (<150); Unsaturated Iron Binding 231 ug/dL
[2025-05-30 15:46] LABS: Folate 9.2 ng/mL (> or = 4.0); Vitamin B12 1868 pg/mL (200-900)
== END 2025-05-30 12:23 | disposition home or self-care (01) ==
LOC: HO.WFDLDS 12:22
PROVIDERS: PCP Nurse Practitioner Family; Visit Provider Nurse Practitioner Family
DX: G47.33 Obstructive sleep apnea (adult) (pediatric) (principal); R41.89 Other symptoms and signs involving cognitive functions and awareness; H93.11 Tinnitus, right ear; H90.3 Sensorineural hearing loss, bilateral; E11.8 Type 2 diabetes mellitus with unspecified complications; E78.2 Mixed hyperlipidemia; E11.22 Type 2 diabetes mellitus with diabetic chronic kidney disease; N18.31 Chronic kidney disease, stage 3a; E11.59 Type 2 diabetes mellitus with other circulatory complications; I15.2 Hypertension secondary to endocrine disorders; E53.8 Deficiency of other specified B group vitamins; D50.8 Other iron deficiency anemias; K76.0 Fatty (change of) liver, not elsewhere classified; Z99.89 Dependence on other enabling machines and devices
CPT/HCPCS: 36415; 80061; 82607; 82746; 83036; 83540; 85027

== ENCOUNTER 2025-05-30 12:22 | Outpatient (AMB) | payer OTHER, SELFPAY ==
--- NOTE | 2025-05-30 12:26 | MHC.PC.OV ---
Vital Signs 05/30/25 12:29 05/30/25 12:37 05/30/25 13:07 Height 5 ft 3 in Weight 175 lb 8 oz BMI 31.1 BP 146/80 H 152/80 H 138/76 Blood Pressure Location Rt brachial Rt brachial Rt brachial Position Sitting Sitting Sitting Respiration 14 Pulse 80 Pulse Source Pulse Oximeter Temp 98 F Temp Source Oral Pulse Oximetry (%) 96 Oxygen Delivery Method Room Air Intake Visit Reasons: 3 mo 30 min routnie fu/CPAP compliance report Intake Note: Follow up. Glucose this am fasting 126. Needs refill on fluticasone propionate 50 mcg Doughnut Icer Machine Required: No Allergies No Known Allergies Allergy (Verified 05/30/25 12:29) Medication List - Last Reconciled 05/30/25 by MARÍA Noriega- aspirin 81 mg PO DAILY atorvastatin 80 mg PO DAILY blood sugar diagnostic (FreeStyle Lite Strips) As directed TWICE PER DAY blood-glucose meter (FreeStyle Lite Meter kit) As directed cyanocobalamin (vitamin B-12) 2,000 mcg (2 x 1,000 mcg) PO DAILY ferrous sulfate 325 mg PO DAILY fluticasone propionate 50 mcg/actuation (Allergy Relief (fluticasone)) 1 spray intranasal BID glimepiride 2 mg PO DAILY lancets (FreeStyle Lancets) As directed losartan 25 mg PO DAILY melatonin 3 mg PO BEDTIME PRN metformin 500 mg PO BID metoprolol tartrate 25 mg PO BID 90 days omeprazole 20 mg PO DAILY 90 days thiamine HCl (vitamin B1) 100 mg PO DAILY Tobacco use date assessed: 12/08/24 Dental Screening Dental Screen Date: 12/08/24 HPI HPI Comments History of Present Illness Details 74-year-old male with chronic back pain with radiculopathy, DM2, diabetic nephropathy, CKD3a, HTN, carcinoma in situ of prostate, HLD, PVD, daily etoh use, b12 def, iron def anemia, fatty liver , diverticluosis , LVH History of Present Illness - The patient is a 74-year-old male presenting with a routine complex disease management visit. - Type 2 Diabetes Mellitus, currently at 5.8% A1c, managed with glimperide and metformin. - Diabetic nephropathy, CKD Stage 3A managed by nephrology, on losartan. - Hypertension, managed with metoprolol and losartan. - Hyperlipidemia with atorvastatin, cholesterol labs due. - Obstructive sleep apnea treated with CPAP, compliance confirmed, improved sleep. Need to repeat in lab to monitor resolution of hypoxia. - Allergic rhinitis managed with fluticasone. Needs refill - Tinnitus and hearing loss, previous aids broken, hearing test 12/2024 at [facility]. His insurance will cover hearing aides w/ MD order. - Cont to drink - no more or less Review of Systems - Constitutional: Denies fatigue, reports improved sleep. - Endocrine: Denies recent hypoglycemia or hyperglycemia. - Cardiovascular: Denies chest pain. - Respiratory: Reports compliance with CPAP, improved breathing. - Skin: Denies rashes or lesions. - HEENT: Reports tinnitus, hearing loss, using fluticasone for nasal symptoms. Exam: awake alert, appears younger than stated age, very pleasant scleras nonicteric bilat no carotid bruit bilat RRR, 1/6 murmur left sternal border LS CTAB Abd soft, nontender, normoactive bs x 3 No CVAT bilat BLE skin intact, hairless, varicose veins, decreased PP bilat Mood and affect appropriate Results - Labs: Recent A1c 5.8%. - Diagnostics: CPAP compliance report reviewed (see below) Discussion Notes I explained to the patient that his Type 2 Diabetes Mellitus is well-controlled with an A1c of 5.8%, and no need for changes in medication at this time. Discussed diabetic nephropathy management, emphasizing the importance of following nephrology guidance and maintaining blood pressure under control with losartan and metoprolol. I assured the patient his CPAP use is effective as compliance is excellent, advised him to continue using it consistently, and to carry it as hand luggage when flying. For his tinnitus and hearing loss, I recommended proceeding with getting new hearing aids through [employer] [facility]; I can sign off on order for insurance approval. He should contact them. We discussed vacation preparations, emphasizing bottled water utilization for CPAP use, and addressed allergy management with fluticasone, confirming he finds it effective. His routine lab workup and follow-up visit plans were scheduled for the future. Patient was given time to ask questions. All questions were answered to their satisfaction. Assessment and Plan 1. Type 2 Diabetes Mellitus - Glimperide 2 mg, Metformin 500 mg BID, monitor glucose levels. 2. Diabetic Nephropathy, CKD Stage 3A - Losartan 25 mg, nephrology follow-up planned. 3. Hypertension - Metoprolol 25 mg, monitor BP <140/90. 4. Hyperlipidemia - Atorvastatin 80 mg, cholesterol lab follow-up scheduled. 5. Obstructive Sleep Apnea - CPAP compliance confirmed, continue usage, plan in-lab study 6. Tinnitus and Hearing Loss - Follow audiology for fitting, - Get form for hearing aides, i will sign off on this. 7. Allergic Rhinitis - Fluticasone spray continued, refill as needed. RTO LAKEISHA LINDQUIST SOONER PRN Patient Instructions - Continue current diabetes medicine and monitor blood sugars. - Keep blood pressure under control with prescribed medication. - Use CPAP every night and transport it by hand during flights. - Seek new hearing aids through audiology and insurance. - Use bottled water for CPAP equipment on vacation. - Continue using nasal spray as needed for nasal congestion. - Follow up on planned lab work and doctor appointments. Consent Patient was informed and verbally consented to the use of an ambient scribe for clinic note documentation during this visit. Total time spent caring for the patient today was 45 minutes. This includes time spent before the visit reviewing the chart, time spent during the visit, and time spent after the visit on documentation, reviewing laboratory results, diagnostic imaging, medications, performing a medically necessary evaluation, counseling on diagnoses, care coordination, ordering appropriate tests, ordering appropriate medications, review of tests performed by other providers, reporting test results with the patient, communication with other healthcare providers. SLEEP STUDY RESULTS: CPAP ORDER: [facility] Medical History (Updated 05/30/25 @ 13:21 by Ann Carr, [facility]) Cervicalgia Diabetes Lumbar strain Radiculopathy affecting upper extremity Sciatica, left side Surgical History History of colonoscopy (~08/02/15) History of prostate surgery Family History Father Diabetes Mother Diabetes Social History Household Members: Spouse Household Members Other:: dog Housing: Apartment Are you a primary childbirth and infant care teacher to a significant other at home: No Do you presently have visiting nurse or other home services: No 75 years or older and lives alone: No Alcohol intake: current Alcohol intake frequency: holidays/special occasions only Alcohol type: beer Patient Tobacco Use Status: Never used Tobacco e-Cigarette/Vaping Use: Never Used service: No Current occupational status: employed and retired 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 Cognitive needs: No Hearing needs: No Vision needs: Yes (Patient wears glasses.) Questionnaire Thrive Questionnaire Date Thrive assessed: 12/08/24 I am a: Patient What is your living situation today?: I choose not to answer this question Within the past 12 months, did the food you bought not last and you didn't have the money to get more?: I choose not to answer this question Within the past 12 months, did you worry whether your food would run out before you got money to buy more?: Never true Do you have trouble paying for medicines?: No Do you have trouble getting transportation to medical appointments?: No Do you have trouble paying your heating and electricity bill?: No Do you have trouble taking care of your child, family member or friend?: No Do you have trouble with day-to-day activities such as bathing, preparing meals, shopping, managing finances, etc.?: No Are you currently unemployed and looking for a job?: No Are you interested in more education?: No Please select the resources that you would like help with: None Currently or been in a relationship where the following occur: I choose not to answer THRIVE Score: 0 ZACH-7 AMB Questionnaire ZACH-7 Date ZACH - 7 assessed: 12/08/24 Source: Developed by Drs. Adeel Lal, Avani Romano, Zane Brown and colleagues, with an educational octavia from [employer]. Physical exam (Primary Care) Vital Signs: Last Vital Signs Temp 98 F 05/30/25 12:29 Pulse 80 05/30/25 12:29 Resp 14 05/30/25 12:29 BP 152/80 H 05/30/25 12:37 Pulse Ox 96 05/30/25 12:29 Oxygen Delivery Method Room Air 05/30/25 12:29 BMI result Body Mass Index 31.1 Tobacco/Smoking Status: Tobacco use Status Tobacco use date assessed 12/08/24 05/30/25 12:27 Patient Tobacco Use Status Never used Tobacco 05/30/25 12:27 e-Cigarette/Vaping Use Never Used 05/30/25 12:27 Thrive Assessment: Date of Thrive Assessment Date Thrive assessed 12/08/24 05/30/25 12:27 Currently or been in a relationship where the following occur: I choose not to answer Results AMB Hemoglobin A1c AMB Hemoglobin A1c 5.8 % Last Edit by Vesna Walsh CMA on 05/30/25 12:40 Results Reviewed Results Reviewed: Laboratory Last Values Hgb A1c (Clinic) 5.8 % (4.0-6.0) 05/30/25 12:39 Coding Level of Care Code Est Pt Level 5 (18551) Complex EM visit Add On G2211 Diagnoses NIKKI on CPAP G47.33 Cognitive impairment R41.89 Tinnitus, right ear H93.11 Sensorineural hearing loss (SNHL) of both ears H90.3 Laterality: bilateral Diabetes mellitus type 2 with complications E11.8 Mixed hyperlipidemia E78.2 Hyperlipidemia type: mixed hyperlipidemia Type 2 diabetes mellitus with stage 3a chronic kidney disease, without long-term current use of insulin E11.22; N18.31 Diabetes mellitus type: type 2 Hypertension complicating diabetes E11.59; I15.2 B12 deficiency E53.8 Other iron deficiency anemia D50.8 Iron deficiency anemia type: other iron deficiency Fatty liver K76.0 Assessment & Plan Assessment & Plan (1) NIKKI on CPAP: Onset Date: 01/2025 Comment: [facility] START 02/2025 COMPLIANCE REVIEW 05/2025 Code(s): G47.33 - Obstructive sleep apnea (adult) (pediatric) Category: Medical (2) Cognitive impairment: Code(s): R41.89 - Other symptoms and signs involving cognitive functions and awareness Category: Medical (3) Tinnitus, right ear: Code(s): H93.11 - Tinnitus, right ear Category: Medical (4) Sensorineural hearing loss: Comment: hearing test 2020 mild to moderate severe hearing loss bilat December 2024 hearing exam @ [facility] Code(s): H90.5 - Unspecified sensorineural hearing loss Category: Medical Qualifiers: Laterality: bilateral Qualified Code(s): H90.3 - Sensorineural hearing loss, bilateral (5) Diabetes mellitus type 2 with complications: Comment: with CKD and HLD Diabetic eye exam completed in 2023. Negative for retinopathy. Code(s): E11.8 - Type 2 diabetes mellitus with unspecified complications Category: Medical (6) Hyperlipidemia: Comment: Goal LDL less than 70 currently on atorvastatin 80 mg p.o. daily. On daily aspirin 81 mg Code(s): E78.5 - Hyperlipidemia, unspecified Category: Medical Qualifiers: Hyperlipidemia type: mixed hyperlipidemia Qualified Code(s): E78.2 - Mixed hyperlipidemia (7) Diabetes mellitus with stage 3a chronic kidney disease, without long-term current use of insulin: Code(s): E11.22 - Type 2 diabetes mellitus with diabetic chronic kidney disease; N18.31 - Chronic kidney disease, stage 3a Category: Medical Qualifiers: Diabetes mellitus type: type 2 Qualified Code(s): E11.22 - Type 2 diabetes mellitus with diabetic chronic kidney disease; N18.31 - Chronic kidney disease, stage 3a (8) Hypertension complicating diabetes: Code(s): E11.59 - Type 2 diabetes mellitus with other circulatory complications; I15.2 - Hypertension secondary to endocrine disorders Category: Medical (9) B12 deficiency: Code(s): E53.8 - Deficiency of other specified B group vitamins Category: Medical (10) Iron deficiency anemia: Code(s): D50.9 - Iron deficiency anemia, unspecified Category: Medical Qualifiers: Iron deficiency anemia type: other iron deficiency Qualified Code(s): D50.8 - Other iron deficiency anemias (11) Fatty liver: Comment: + etoh Code(s): K76.0 - Fatty (change of) liver, not elsewhere classified Category: Medical Plan . Orders: Orders AMB Hemoglobin A1c Today E11.8 - Type 2 diabetes mellitus with unspecified complications CPAP compliance review Today G47.33 - Obstructive sleep apnea (adult) (pediatric) RT PSG in-lab sleep titration Today G47.33 - Obstructive sleep apnea (adult) (pediatric), R41.89 - Other symptoms and signs involving cognitive functions and awareness Complete Blood Count no Diff Today D50.8 - Other iron deficiency anemias, E11.22 - Type 2 diabetes mellitus with diabetic chronic kidney disease, E11.59 - Type 2 diabetes mellitus with other circulatory complications, E11.8 - Type 2 diabetes mellitus with unspecified complications, E53.8 - Deficiency of other specified B group vitamins, E78.2 - Mixed hyperlipidemia, I15.2 - Hypertension secondary to endocrine disorders, K76.0 - Fatty (change of) liver, not elsewhere classified, N18.31 - Chronic kidney disease, stage 3a IRON PROFILE Today D50.8 - Other iron deficiency anemias, E11.22 - Type 2 diabetes mellitus with diabetic chronic kidney disease, E11.59 - Type 2 diabetes mellitus with other circulatory complications, E11.8 - Type 2 diabetes mellitus with unspecified complications, E53.8 - Deficiency of other specified B group vitamins, E78.2 - Mixed hyperlipidemia, I15.2 - Hypertension secondary to endocrine disorders, K76.0 - Fatty (change of) liver, not elsewhere classified, N18.31 - Chronic kidney disease, stage 3a Lipid Panel Today D50.8 - Other iron deficiency anemias, E11.22 - Type 2 diabetes mellitus with diabetic chronic kidney disease, E11.59 - Type 2 diabetes mellitus with other circulatory complications, E11.8 - Type 2 diabetes mellitus with unspecified complications, E53.8 - Deficiency of other specified B group vitamins, E78.2 - Mixed hyperlipidemia, I15.2 - Hypertension secondary to endocrine disorders, K76.0 - Fatty (change of) liver, not elsewhere classified, N18.31 - Chronic kidney disease, stage 3a Vitamin B12 and Folate Today D50.8 - Other iron deficiency anemias, E11.22 - Type 2 diabetes mellitus with diabetic chronic kidney disease, E11.59 - Type 2 diabetes mellitus with other circulatory complications, E11.8 - Type 2 diabetes mellitus with unspecified complications, E53.8 - Deficiency of other specified B group vitamins, E78.2 - Mixed hyperlipidemia, I15.2 - Hypertension secondary to endocrine disorders, K76.0 - Fatty (change of) liver, not elsewhere classified, N18.31 - Chronic kidney disease, stage 3a Medications: New aspirin 81 mg PO DAILY 90 tabs 2RF Refilled thiamine HCl (vitamin B1) 100 mg PO DAILY 90 tabs 2RF fluticasone propionate 50 mcg/actuation (Allergy Relief (fluticasone)) administer into each nostril 1 spray intranasal BID 48 grams 2RF cyanocobalamin (vitamin B-12) 2,000 mcg (2 x 1,000 mcg) PO DAILY 180 caps 2RF metformin 500 mg PO BID 180 tabs 2RF metoprolol tartrate 25 mg PO BID 180 tabs 2RF 90 days
[2025-05-30 12:29] VITALS: BP 146/80; PULSE 80; RESP 14; TEMP 36.6; O2SAT 96; BMI 31.1
[2025-05-30 12:37] VITALS: BP 152/80
--- OUTSIDE RECORDS SUMMARY | 2025-05-30 13:02 | XMS_ITS | Clinical Summary ---
Author Organization [facility] Address [address] [place] [address] Phone Care Team Providers Care Director Of Rotc Name Role Phone [facility] [place] Primary Care Provider [phone] Allergies No known active allergies Medications Magnesium [...] PM EST) Hemoglobin A1C 10.1(H) (4.0-5.6) % [facility] Comment: MONITORING: In known diabetic patients, hemoglobin A1c targets should be discussed with health care provider. DIAGNOSTIC USE: The [place] Diabetes Association (ADA) and the World Health [...] Supplement 1 Testing performed or reported by [facility], a Service of [facility], [address] [place] [id number] Luis Angel Busch MD, Internet Designer [facility]# [id number] 09/27/2023 12:5 0 PM EST 09/27/2023 12:52 PM EST us Rasta Gan MD LAB BLOOD ORDERABLES Beverly freddy Result [facility] from Last 3 Months or Most Recently Relevant to Health Maintenance Insurance Care Teams Director Of Rotc Relationship Specialty Start Date End Date [facility] [place] PCP - General 12/16/22
[2025-05-30 13:07] VITALS: BP 138/76
== END 2025-05-30 13:12 | disposition home or self-care (01) ==
LOC: HO.HMCFM 12:23
PROVIDERS: PCP Nurse Practitioner Family; Visit Provider Nurse Practitioner Family
DX: E11.8 Type 2 diabetes mellitus with unspecified complications (principal); E11.22 Type 2 diabetes mellitus with diabetic chronic kidney disease; N18.31 Chronic kidney disease, stage 3a; E11.59 Type 2 diabetes mellitus with other circulatory complications; H90.3 Sensorineural hearing loss, bilateral; G47.33 Obstructive sleep apnea (adult) (pediatric); R41.89 Other symptoms and signs involving cognitive functions and awareness; H93.11 Tinnitus, right ear; E78.2 Mixed hyperlipidemia; I15.2 Hypertension secondary to endocrine disorders; E53.8 Deficiency of other specified B group vitamins; D50.8 Other iron deficiency anemias; K76.0 Fatty (change of) liver, not elsewhere classified

== ENCOUNTER 2025-06-07 13:24 | Outpatient (REF) | payer OTHER, SELFPAY ==
--- OUTSIDE RECORDS SUMMARY | 2025-06-07 14:17 | XMS_ITS | Clinical Summary ---
Author Organization [facility] Address [address] [place] [address] Phone Care Team Providers Care Putty Mixer And Applier Name Role Phone [facility] [place] Primary Care Provider [phone] Allergies No known active allergies Medications Magnesium [...] PM EST) Hemoglobin A1C 10.1(H) (4.0-5.6) % [facility] Comment: MONITORING: In known diabetic patients, hemoglobin A1c targets should be discussed with health care provider. DIAGNOSTIC USE: The [place] Diabetes Association (ADA) and the World Health [...] Supplement 1 Testing performed or reported by [facility], a Service of [facility], [address] [place] [id number] Luis Angel Busch MD, Gear Shaper [facility]# [id number] 09/27/2023 12:5 0 PM EST 09/27/2023 12:52 PM EST us Rasta Gan MD LAB BLOOD ORDERABLES Beverly freddy Result [facility] from Last 3 Months or Most Recently Relevant to Health Maintenance Insurance Care Teams Putty Mixer And Applier Relationship Specialty Start Date End Date Med [place] PCP - General 12/16/22
[2025-06-07 18:03] LABS: Anion Gap 14 (12-20); Blood Urea Nitrogen 28 mg/dL (9-16); Carbon Dioxide 25 mmol/L (22-29); Chloride 104 mmol/L (96-108); Estimated Glomerular Filt Rate 44; Potassium 3.8 mmol/L (3.3-5.1); Sodium 139 mmol/L (135-145)
== END 2025-06-07 13:25 | disposition home or self-care (01) ==
LOC: HO.WFDLDS 13:24
PROVIDERS: Visit Provider Internal Medicine Nephrology
DX: E11.22 Type 2 diabetes mellitus with diabetic chronic kidney disease (principal); E11.59 Type 2 diabetes mellitus with other circulatory complications; I15.2 Hypertension secondary to endocrine disorders; N18.31 Chronic kidney disease, stage 3a
CPT/HCPCS: 36415; 80051; 82565; 84520

== ENCOUNTER 2025-06-15 09:41 | Outpatient (AMB) | payer OTHER, SELFPAY ==
--- OUTSIDE RECORDS SUMMARY | 2025-06-15 09:44 | XMS_ITS | Clinical Summary ---
Author Organization [facility] Address [address] [place] [address] Phone Care Team Providers Care Field Coil Winder Name Role Phone Med Whiteside Primary Care Provider [phone] [phone] Allergies No known active allergies Medications Magnesium [...] PM EST) Hemoglobin A1C 10.1(H) (4.0-5.6) % [facility] Comment: MONITORING: In known diabetic patients, hemoglobin A1c targets should be discussed with health care provider. DIAGNOSTIC USE: The [place] Diabetes Association (ADA) and the World Health [...] Supplement 1 Testing performed or reported by [facility], a Service of [facility], [address] [place] [id number] Luis Angel Busch MD, Line Maintainer Section [facility]# [id number] 09/27/2023 12:5 0 PM EST 09/27/2023 12:52 PM EST us Rasta Gna MD LAB BLOOD ORDERABLES Beverly freddy Result [facility] from Last 3 Months or Most Recently Relevant to Health Maintenance Insurance Care Teams Field Coil Winder Relationship Specialty Start Date End Date Med Whiteside PCP - General 12/16/22
--- NOTE | 2025-06-15 09:47 | HO.NEPHOV ---
Vital Signs 06/15/25 09:48 Height 5 ft 3 in Weight 177 lb 4 oz BMI 31.4 BP 150/80 H Blood Pressure Location Rt brachial Position Sitting Pulse 91 Pulse Source Pulse Oximeter Pulse Oximetry (%) 97 Oxygen Delivery Method Room Air Intake Visit Reasons: -Located Within [facility] Lead Software Qa Engineer Required: No Accompanied by: Self / Same As Patient Allergies No Known Allergies Allergy (Verified 06/15/25 09:48) HPI Comments Details: 73 year old male with DM2 as well as CKD3a along with HTN, carcinoma in situ of prostate, HLD as well as PAD whom I had the privilege to see in follow up for CKD. He denies retinopathy. He is on metformin and glipizide. He has no hypoglycemia. He denies any edema, CAD, carotid stenosis, CVA or CHF. He denies excessive NSAID's. He has no H/O hypercalcemia or paraproteinemia. His last serum serum creatinine has been 1.57. He denies epistaxis, recurrent sinusitis, hematuria, weight loss, dysuria , chest pain, SOB, PND , orthopnea or orthostatic symptoms. His recent renal USS showed a mass on the left kidney but had follow up imaging and mass was not concerning. He could not afford Jardiance. He feels well. [facility] Medical History (Updated 05/30/25 @ 13:21 by Ann Carr [facility]) Radiculopathy affecting upper extremity Lumbar strain Sciatica, left side Diabetes Cervicalgia Surgical History History of colonoscopy (~08/02/15) History of prostate surgery Family History Father Diabetes Mother Diabetes Social History Household Members: Spouse Household Members Other:: dog Housing: Apartment Are you a primary intensive care medicine specialist to a significant other at home: No Do you presently have visiting nurse or other home services: No 75 years or older and lives alone: No Alcohol intake: current Alcohol intake frequency: holidays/special occasions only Alcohol type: beer Patient Tobacco Use Status: Never used Tobacco e-Cigarette/Vaping Use: Never Used service: No Current occupational status: employed and retired 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 Cognitive needs: No Hearing needs: No Vision needs: Yes (Patient wears glasses.) Physical Exam Vital Signs: Last Vital Signs Pulse 91 06/15/25 09:48 BP 150/80 H 06/15/25 09:48 Pulse Ox 97 06/15/25 09:48 Oxygen Delivery Method Room Air 06/15/25 09:48 BMI result Body Mass Index 31.4 Const General: comfortable and no acute distress Orientation/consciousness: patient oriented x3 HEENT Head: Yes normocephalic Mouth: Normal oral and palatal mucosa present Eyes EOM: EOMs intact bilaterally Neck Neck: Yes supple Resp Auscultation: clear to auscultation bilaterally Cardio Jugular venous distension: no JVD Rate: regular rate GI Palpation (GI): Soft to palpation Auscultation: normal bowel sounds General: Yes no CVA tenderness Back/Spine/Pelvis Back: no CVA tenderness Skin General skin exam: no rashes or lesions noted Neuro General: patient oriented x3 and moves all extremities Extrem General: Yes no pedal edema Results Reviewed Nephrology Results: Hgb, (14.0-18.0) 13.9 g/dl L 05/30/25 WBC, (4.8-10.8) 7.3 X10*3/uL 05/30/25 Plt Count, (160-400) 222 X10*3/uL 05/30/25 Sodium, (135-145) 139 mmol/L 06/07/25 Potassium, (3.3-5.1) 3.8 mmol/L 06/07/25 Chloride, (96-108) 104 mmol/L 06/07/25 Carbon Dioxide, (22-29) 25 mmol/L 06/07/25 BUN, (9-16) 28 mg/dL H 06/07/25 Creatinine, (0.5-1.4) 1.57 mg/dL H 06/07/25 Urine Creatinine 120.01 mg/dL 05/07/25 Protein/Creatinin Ratio, (<0.2) 0.17 05/07/25 Renal US 09/06/24 Assessment & Plan Assessment & Plan (1) Hypertension complicating diabetes: Code(s): E11.59 - Type 2 diabetes mellitus with other circulatory complications; I15.2 - Hypertension secondary to endocrine disorders Category: Medical (2) Diabetes mellitus with stage 3a chronic kidney disease, without long-term current use of insulin: Code(s): E11.22 - Type 2 diabetes mellitus with diabetic chronic kidney disease; N18.31 - Chronic kidney disease, stage 3a Category: Medical Qualifiers: Diabetes mellitus type: type 2 Qualified Code(s): E11.22 - Type 2 diabetes mellitus with diabetic chronic kidney disease; N18.31 - Chronic kidney disease, stage 3a Plan 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 He has proteinuria. He is on ARB which I plan to increase if his BP is not at goal . I started him on Jardiance 10 mg but he could not afford co pay & he did not get it. His MRI of kidney did not show any mass. He should avoid NSAID's and maintain good hydration. He does not need a renal biopsy now. All these have been discussed in detail. All questions answered & follow up given. Orders: Orders Creatinine 2 Months E11.22 - Type 2 diabetes mellitus with diabetic chronic kidney disease, E11.59 - Type 2 diabetes mellitus with other circulatory complications, I15.2 - Hypertension secondary to endocrine disorders, N18.31 - Chronic kidney disease, stage 3a Blood Urea Nitrogen 2 Months E11.22 - Type 2 diabetes mellitus with diabetic chronic kidney disease, E11.59 - Type 2 diabetes mellitus with other circulatory complications, I15.2 - Hypertension secondary to endocrine disorders, N18.31 - Chronic kidney disease, stage 3a Electrolytes 2 Months E11.22 - Type 2 diabetes mellitus with diabetic chronic kidney disease, E11.59 - Type 2 diabetes mellitus with other circulatory complications, I15.2 - Hypertension secondary to endocrine disorders, N18.31 - Chronic kidney disease, stage 3a Coding Level of Care Code Est Pt Level 4 (92238) Diagnoses Hypertension complicating diabetes E11.59; I15.2 Type 2 diabetes mellitus with stage 3a chronic kidney disease, without long-term current use of insulin E11.22; N18.31 Diabetes mellitus type: type 2
[2025-06-15 09:48] VITALS: BP 150/80; PULSE 91; O2SAT 97; BMI 31.4
== END 2025-06-15 10:01 | disposition home or self-care (01) ==
LOC: HO.HKA 09:42
PROVIDERS: PCP Nurse Practitioner Family; Visit Provider Internal Medicine Nephrology
DX: E11.59 Type 2 diabetes mellitus with other circulatory complications (principal); I15.2 Hypertension secondary to endocrine disorders; E11.22 Type 2 diabetes mellitus with diabetic chronic kidney disease; N18.31 Chronic kidney disease, stage 3a
CPT/HCPCS: 99214

== ENCOUNTER → 2025-07-12 20:30 | Outpatient (REF) | payer MEDICARE, SELFPAY ==
--- OUTSIDE RECORDS SUMMARY | 2025-07-12 21:08 | XMS_ITS | Clinical Summary ---
Author Organization [facility] Address [address] [place] [address] Phone Care Team Providers Care Bicycle Subassembler Name Role Phone Med Whiteside Primary Care Provider [phone] [phone] Allergies No known active allergies Medications Magnesium [...] PM EST) Hemoglobin A1C 10.1(H) (4.0-5.6) % [facility] Comment: MONITORING: In known diabetic patients, hemoglobin A1c targets should be discussed with health care provider. DIAGNOSTIC USE: The [place] Diabetes Association (ADA) and the World Health [...] Supplement 1 Testing performed or reported by [facility], a Service of [facility], [address] [place] [id number] Luis Angel Busch MD, Hydroelectric Machinery Mechanic Helper [facility]# [id number] 09/27/2023 12:5 0 PM EST 09/27/2023 12:52 PM EST us Rasta Gan MD LAB BLOOD ORDERABLES Beverly freddy Result [facility] from Last 3 Months or Most Recently Relevant to Health Maintenance Insurance Care Teams Bicycle Subassembler Relationship Specialty Start Date End Date Med Whiteside PCP - General 12/16/22
== END ==
LOC: HO.SL 20:30
PROVIDERS: PCP Nurse Practitioner Family; Visit Provider Nurse Practitioner Family
DX: G47.33 Obstructive sleep apnea (adult) (pediatric) (principal); R41.89 Other symptoms and signs involving cognitive functions and awareness; Z99.89 Dependence on other enabling machines and devices
CPT/HCPCS: 95811

== ENCOUNTER → 2025-07-12 21:08 | Outpatient (BNV) | payer MEDICARE, SELFPAY | PROVIDERS: PCP Nurse Practitioner Family; Visit Provider Internal Medicine | DX: G47.33 Obstructive sleep apnea (adult) (pediatric) (principal); G47.61 Periodic limb movement disorder | CPT/HCPCS: 95811 ==

== ENCOUNTER 2025-07-23 09:42 | Outpatient (AMB) | payer MEDICARE, SELFPAY ==
--- NOTE | 2025-07-23 09:58 | A.OFFPC_ITS ---
Vital Signs 3 07/23/25 10:02 07/23/25 10:24 Height 5 ft 3 in Weight 174 lb 8 oz BMI 30.9 BP 142/80 H 138/84 Blood Pressure Location Lt brachial Lt brachial Position Sitting Sitting Respiration 13 Pulse 77 Pulse Source Pulse Oximeter Temp 97.2 F Temp Source Oral Pulse Oximetry (%) 98 Oxygen Delivery Method Room Air Intake Visit Reasons: sleep study results Intake Note: Follow up to review sleep study. Home Visit Field Care Manager Required: No Allergies No Known Allergies Allergy (Verified 07/23/25 10:17) Medication List - Last Reconciled 07/23/25 by Ann Carr, SAP CRM DEVELOPER- aspirin 81 mg PO DAILY atorvastatin 80 mg PO DAILY blood sugar diagnostic (FreeStyle Lite Strips) As directed TWICE PER DAY blood-glucose meter (FreeStyle Lite Meter kit) As directed cyanocobalamin (vitamin B-12) 1,000 mcg PO DAILY ferrous sulfate 325 mg PO DAILY fluticasone propionate 50 mcg/actuation (Allergy Relief (fluticasone)) 1 spray intranasal BID glimepiride 2 mg PO DAILY lancets (FreeStyle Lancets) As directed losartan 25 mg PO DAILY melatonin 3 mg PO BEDTIME PRN metformin 500 mg PO BID metoprolol tartrate 25 mg PO BID 90 days omeprazole 20 mg PO DAILY 90 days [One Touch Ultra 2 kit w/ device test blood sugar twice daily] [One Touch Ultra Test Strips test blood sugar twice daily] [One Touch Ultrasoft lancets test blood sugar twice daily] thiamine HCl (vitamin B1) 100 mg PO DAILY Tobacco use date assessed: 07/23/25 Fall risk assessment: No Falls in past year Last assessed Fall Risk: 07/23/25 Dental Screening Dental Screen Date: 07/23/25 Did you have a dental visit in the last 12 months?: Yes Did you have a dental problem in the last 6 months where you did not have access to dental care?: No Was dental information given to patient?: Patient has dentist HPI HPI Comments 2 History of Present Illness0 Details 74-year-old male with chronic back pain with radiculopathy, DM2, diabetic nephropathy, CKD3a, HTN, carcinoma in situ of prostate, HLD, PVD, daily etoh use, b12 def, iron def anemia, fatty liver , diverticluosis , LVH, COPD History of Present Illness - The patient is a 74-year-old male pres enting to fu on Sleep study titration and HTN - Diabetic nephropathy, CKD Stage 3A man aged by nephrology, on losartan. - Hypertension, BP > goal on metoprolol and losartan. - Obstructive sleep apnea treated with C PAP, compliance confirmed, improved sleep. Titration study successful, see below. LT[facility], [facility] - Tinnitus and hearing loss, [place] te [facility] [place] [facility] got hearing aide on [employer], helping w/ tinnitus . Flu shot 06/2025 at Pharmacy. - Prostate CA in situ managed by [facility] COPD breathing fine w/o meds Review of Systems - Constitutional: Denies fatigue, report s improved sleep. - Endocrine: Denies recent hypoglycemia or hyperglycemia. - Cardiovascular: Denies chest pain. - Respiratory: Reports compliance with C PAP, improved breathing. - Skin: Denies rashes or lesions. - HEENT: Reports tinnitus, hearing loss, using fluticasone for nasal symptoms. Exam: awake alert, appears younger than stated age, very pleasant scleras nonicteric bilat no carotid bruit bilat RRR, 1/6 murmur left sternal border LS CTAB Abd soft, nontender, normoactive bs x 3 No CVAT bilat BLE skin intact, hairless, varicose veins, decreased PP bilat Mood and affect appropriate Results - Diagnostics: CPAP compliance report re viewed (see below) Plan: 1. Flu shot UTD 2. Diabetic Nephropathy, CKD Stage 3A/HT N - Losartan increase from 25 mg to 50mg, nephrology follow-up planned w/ repeat labs Cont Metoprolol 25 mg, monitor BP <140/90. 3. Obstructive Sleep Apnea - CPAP compliance confirmed, continue us age, successful titration. Cont. 4. Tinnitus and Hearing Loss -cont w hearing aides . RTO LAKEISHA LINDQUIST SOONER PRN Consent Patient was informed and verbally consented to the use of an ambient scribe for clinic note documentation during this visit. Total time spent caring for the patient today was 30 minutes. This includes time spent before the visit reviewing the chart, time spent during the visit, and time spent after the visit on documentation, reviewing laboratory results, diagnostic imaging, medications, performing a medically necessary evaluation, counseling on diagnoses, care coordination, ordering appropriate tests, ordering appropriate medications, review of tests performed by other providers, reporting test results with the patient, communication with other healthcare providers. SLEEP STUDY RESULTS: CPAP ORDER: [facility] Medical History (Updated 07/23/25 @ 10:36 by Ann Carr [facility]) Cervicalgia Diabetes Lumbar strain Radiculopathy affecting upper extremity Sciatica, left side Surgical History History of colonoscopy (~08/02/15) History of prostate surgery Family History Father Diabetes Mother Diabetes Social History Household Members: Spouse Household Members Other:: dog Housing: Apartment Are you a primary insurance healthcare representative to a significant other at home: No Do you presently have visiting nurse or other home services: No 75 years or older and lives alone: No Alcohol intake: current Alcohol intake frequency: holidays/special occasions only Alcohol type: beer Patient Tobacco Use Status: Never used Tobacco e-Cigarette/Vaping Use: Never Used service: No Current occupational status: employed and retired 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 Cognitive needs: No Hearing needs: No Vision needs: Yes (Patient wears glasses.) Questionnaire Thrive Questionnaire Date Thrive assessed: 12/08/24 I am a: Patient What is your living situation today?: I choose not to answer this question Within the past 12 months, did the food you bought not last and you didn't have the money to get more?: I choose not to answer this question Within the past 12 months, did you worry whether your food would run out before you got money to buy more?: Never true Do you have trouble paying for medicines?: No Do you have trouble getting transportation to medical appointments?: No Do you have trouble paying your heating and electricity bill?: No Do you have trouble taking care of your child, family member or friend?: No Do you have trouble with day-to-day activities such as bathing, preparing meals, shopping, managing finances, etc.?: No Are you currently unemployed and looking for a job?: No Are you interested in more education?: No Please select the resources that you would like help with: None Currently or been in a relationship where the following occur: I choose not to answer THRIVE Score: 0 ZACH-7 AMB Questionnaire ZACH-7 Date ZACH - 7 assessed: 12/08/24 Source: Developed by DrsCharlotte Lal, Avani Romano, Zane Brown and colleagues, with an educational octavia from [employer]. Physical exam (Primary Care) Vital Signs: Last Vital Signs Temp 97.2 F 07/23/25 10:02 Pulse 77 07/23/25 10:02 Resp 13 07/23/25 10:02 BP 142/80 H 07/23/25 10:02 Pulse Ox 98 07/23/25 10:02 Oxygen Delivery Method Room Air 07/23/25 10:02 BMI result Body Mass Index 30.9 Tobacco/Smoking Status: Tobacco use Status Tobacco use date assessed 07/23/25 07/23/25 10:00 Patient Tobacco Use Status Never used Tobacco 07/23/25 10:00 e-Cigarette/Vaping Use Never Used 07/23/25 10:00 Thrive Assessment: Date of Thrive Assessment Date Thrive assessed 12/08/24 07/23/25 10:00 Currently or been in a relationship where the following occur: I choose not to answer Results Reviewed Results Reviewed: Coding Level of Care Code Est Pt Level 4 (68422) Complex EM visit Add On G2211 Diagnoses Hypertension complicating diabetes E11.59; I15.2 Type 2 diabetes mellitus with stage 3a chronic kidney disease, without long-term current use of insulin E11.22; N18.31 Diabetes mellitus type: type 2 Sensorineural hearing loss (SNHL) of both ears H90.3 Laterality: bilateral Tinnitus, right ear H93.11 Carcinoma in situ of prostate D07.5 Other emphysema J43.8 COPD type: emphysema Emphysema type: other Assessment & Plan Assessment & Plan (1) Hypertension complicating diabetes: Code(s): E11.59 - Type 2 diabetes mellitus with other circulatory complications; I15.2 - Hypertension secondary to endocrine disorders Category: Medical (2) Diabetes mellitus with stage 3a chronic kidney disease, without long-term current use of insulin: Code(s): E11.22 - Type 2 diabetes mellitus with diabetic chronic kidney disease; N18.31 - Chronic kidney disease, stage 3a Category: Medical Qualifiers: Diabetes mellitus type: type 2 Qualified Code(s): E11.22 - Type 2 diabetes mellitus with diabetic chronic kidney disease; N18.31 - Chronic kidney disease, stage 3a (3) Sensorineural hearing loss: Comment: hearing test 2020 mild to moderate severe hearing loss bilat December [place]24 [place] [facility] Code(s): H90.5 - Unspecified sensorineural hearing loss Category: Medical Qualifiers: Laterality: bilateral Qualified Code(s): H90.3 - Sensorineural hearing loss, bilateral (4) Tinnitus, right ear: Code(s): H93.11 - Tinnitus, right ear Category: Medical (5) Carcinoma in situ of prostate: Comment: Current, active, managed by [facility]. Code(s): D07.5 - Carcinoma in situ of prostate Category: Medical (6) COPD (chronic obstructive pulmonary disease): Comment: noted on imaging, no sx. controlled w/o inhalers Code(s): J44.9 - Chronic obstructive pulmonary disease, unspecified Category: Medical Qualifiers: COPD type: emphysema Emphysema type: other Qualified Code(s): J43.8 - Other emphysema Plan , Orders: Orders 2 Lipid Panel 09/24/25 D50.8 - Other iron deficiency anemias, E11.59 - Type 2 diabetes mellitus with other circulatory complications, E53.8 - Deficiency of other specified B group vitamins, E78.2 - Mixed hyperlipidemia, I15.2 - Hypertension secondary to endocrine disorders TSH reflex Free T4 09/24/25 D50.8 - Other iron deficiency anemias, E11.59 - Type 2 diabetes mellitus with other circulatory complications, E53.8 - Deficiency of other specified B group vitamins, E78.2 - Mixed hyperlipidemia, I15.2 - Hypertension secondary to endocrine disorders Vitamin D 25-OH Total 09/24/25 D50.8 - Other iron deficiency anemias, E11.59 - Type 2 diabetes mellitus with other circulatory complications, E53.8 - Deficiency of other specified B group vitamins, E78.2 - Mixed hyperlipidemia, I15.2 - Hypertension secondary to endocrine disorders Complete Blood Count no Diff 09/24/25 D50.8 - Other iron deficiency anemias, E11.59 - Type 2 diabetes mellitus with other circulatory complications, E53.8 - Deficiency of other specified B group vitamins, E78.2 - Mixed hyperlipidemia, I15.2 - Hypertension secondary to endocrine disorders Comprehensive Met. Panel 09/24/25 D50.8 - Other iron deficiency anemias, E11.59 - Type 2 diabetes mellitus with other circulatory complications, E53.8 - Deficiency of other specified B group vitamins, E78.2 - Mixed hyperlipidemia, I15.2 - Hypertension secondary to endocrine disorders Microalbumin, Random (w Creat) 09/24/25 D50.8 - Other iron deficiency anemias, E11.59 - Type 2 diabetes mellitus with other circulatory complications, E53.8 - Deficiency of other specified B group vitamins, E78.2 - Mixed hyperlipidemia, I15.2 - Hypertension secondary to endocrine disorders Prostate Specific Antigen Scr 09/24/25 D50.8 - Other iron deficiency anemias, E11.59 - Type 2 diabetes mellitus with other circulatory complications, E53.8 - Deficiency of other specified B group vitamins, E78.2 - Mixed hyperlipidemia, I15.2 - Hypertension secondary to endocrine disorders Vitamin B12 and Folate 09/24/25 D50.8 - Other iron deficiency anemias, E11.59 - Type 2 diabetes mellitus with other circulatory complications, E53.8 - Deficiency of other specified B group vitamins, E78.2 - Mixed hyperlipidemia, I15.2 - Hypertension secondary to endocrine disorders Medications: New 2 losartan 50 mg PO DAILY 90 tabs 0RF Discontinued 2 losartan Discontinued Reason: Patient Completed Course 25 mg PO DAILY 90 tabs 2RF
[2025-07-23 10:02] VITALS: BP 142/80; PULSE 77; RESP 13; TEMP 36.2; O2SAT 98; BMI 30.9
[2025-07-23 10:24] VITALS: BP 138/84
== END 2025-07-23 11:37 | disposition home or self-care (01) ==
LOC: HO.HMCFM 09:43
PROVIDERS: PCP Nurse Practitioner Family; Visit Provider Nurse Practitioner Family
DX: E11.59 Type 2 diabetes mellitus with other circulatory complications (principal); E11.22 Type 2 diabetes mellitus with diabetic chronic kidney disease; N18.31 Chronic kidney disease, stage 3a; J43.8 Other emphysema; I15.2 Hypertension secondary to endocrine disorders; H90.3 Sensorineural hearing loss, bilateral; H93.11 Tinnitus, right ear; D07.5 Carcinoma in situ of prostate

== ENCOUNTER → 2025-07-23 09:42 | Outpatient (BNVA) | payer MEDICARE, SELFPAY | PROVIDERS: PCP Nurse Practitioner Family; Visit Provider Nurse Practitioner Family | DX: E11.22 Type 2 diabetes mellitus with diabetic chronic kidney disease (principal); E11.40 Type 2 diabetes mellitus with diabetic neuropathy, unspecified; N18.31 Chronic kidney disease, stage 3a; I15.2 Hypertension secondary to endocrine disorders; G47.33 Obstructive sleep apnea (adult) (pediatric); E11.59 Type 2 diabetes mellitus with other circulatory complications; H90.3 Sensorineural hearing loss, bilateral; H93.11 Tinnitus, right ear; D07.5 Carcinoma in situ of prostate; J43.8 Other emphysema; Z99.89 Dependence on other enabling machines and devices; Z79.899 Other long term (current) drug therapy | CPT/HCPCS: 99212 ==

== ENCOUNTER 2025-09-25 10:48 | Outpatient (REF) | payer MEDICARE, SELFPAY ==
--- OUTSIDE RECORDS SUMMARY | 2025-09-25 12:38 | XMS_ITS | Clinical Summary ---
Author Organization [facility] Address [address] [place] [address] Phone Care Team Providers Care Manager Valuation Name Role Phone Med Whiteside Primary Care Provider [phone] Allergies No known active allergies Medications Magnesium [...] EST) Hemoglobin A1C 10.1(H) (4.0-5.6) % [facility] Comment: MONITORING: In known diabetic patients, hemoglobin A1c targets should be discussed with health care provider. DIAGNOSTIC USE: The [place] Diabetes Association (ADA) and the World Health [...] Supplement 1 Testing performed or reported by [facility], a Service of [facility], [address] [place] [id number] Luis Angel Busch MD, Hematology Specialist [facility]# [id number] 09/27/2023 12:5 0 PM EST 09/27/2023 12:52 PM EST us Rasta Gan MD LAB BLOOD ORDERABLES Beverly hayes Result [facility] from Last 3 Months or Most Recently Relevant to Health Maintenance Insurance Care Teams Manager Valuation Relationship Specialty Start Date End Date Med Whiteside PCP - General 12/16/22
[2025-09-25 15:20] LABS: Anion Gap 15 (12-20); Blood Urea Nitrogen 22 mg/dL (9-16); Carbon Dioxide 22 mmol/L (22-29); Chloride 107 mmol/L (96-108); Estimated Glomerular Filt Rate 38; Potassium 4.8 mmol/L (3.3-5.1); Sodium 139 mmol/L (135-145)
== END 2025-09-25 10:49 | disposition home or self-care (01) ==
LOC: HO.WFDLDS 10:48
PROVIDERS: Visit Provider Internal Medicine Nephrology
DX: E11.59 Type 2 diabetes mellitus with other circulatory complications (principal); I12.9 Hypertensive chronic kidney disease with stage 1 through stage 4 chronic kidney disease, or unspecified chronic kidney disease; E11.22 Type 2 diabetes mellitus with diabetic chronic kidney disease; N18.31 Chronic kidney disease, stage 3a
CPT/HCPCS: 36415; 80051; 82565; 84520

== ENCOUNTER 2025-09-28 10:37 | Outpatient (AMB) | payer OTHER, SELFPAY ==
--- NOTE | 2025-09-28 10:43 | HO.NEPHOV ---
Vital Signs 09/28/25 10:44 Height 5 ft 3 in Weight 168 lb 2 oz BMI 29.8 BP 140/84 H Blood Pressure Location Lt brachial Position Sitting Pulse 81 Pulse Source Pulse Oximeter Pulse Oximetry (%) 97 Oxygen Delivery Method Room Air Intake Visit Reasons: 3mon f/u w/labs-LVM Keno Writer/Runner Required: No Accompanied by: Self / Same As Patient Allergies No Known Allergies Allergy (Verified 09/28/25 10:44) HPI Comments Details: 74 year old male with DM2 as well as CKD3a along with HTN, carcinoma in situ of prostate, HLD as well as PAD whom I had the privilege to see in follow up for CKD. He denies retinopathy. He is on metformin and glipizide. He has no hypoglycemia. He denies any edema, CAD, carotid stenosis, CVA or CHF. He denies excessive NSAID's. He has no H/O hypercalcemia or paraproteinemia. His last serum serum creatinine has been 1.79. He denies epistaxis, recurrent sinusitis, hematuria, weight loss, dysuria , chest pain, SOB, PND , orthopnea or orthostatic symptoms. His recent renal USS showed a mass on the left kidney but had follow up imaging and mass was not concerning. He could not afford Jardiance. He feels well. [facility] Medical History (Updated 07/23/25 @ 10:36 by Ann Carr, [facility]) Radiculopathy affecting upper extremity Lumbar strain Sciatica, left side Diabetes Cervicalgia Surgical History History of colonoscopy (~08/02/15) History of prostate surgery Family History Father Diabetes Mother Diabetes Social History Household Members: Spouse Household Members Other:: dog Housing: Apartment Are you a primary health care manager to a significant other at home: No Do you presently have visiting nurse or other home services: No 75 years or older and lives alone: No Alcohol intake: current Alcohol intake frequency: holidays/special occasions only Alcohol type: beer Patient Tobacco Use Status: Never used Tobacco e-Cigarette/Vaping Use: Never Used service: No Current occupational status: employed and retired 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 Cognitive needs: No Hearing needs: No Vision needs: Yes (Patient wears glasses.) Review of Systems Const All systems reviewed & are unremarkable except as noted in HPI and below Physical Exam Const General: comfortable and no acute distress Orientation/consciousness: patient oriented x3 HEENT Head: Yes normocephalic Mouth: Normal oral and palatal mucosa present Eyes EOM: EOMs intact bilaterally Neck Neck: Yes supple Resp Auscultation: clear to auscultation bilaterally Cardio Jugular venous distension: no JVD Rate: regular rate GI Palpation (GI): Soft to palpation Auscultation: normal bowel sounds General: Yes no CVA tenderness Back/Spine/Pelvis Back: no CVA tenderness Skin General skin exam: no rashes or lesions noted Neuro General: patient oriented x3 and moves all extremities Extrem General: Yes no pedal edema Results Reviewed Nephrology Results: Hgb, (14.0-18.0) 13.9 g/dl L 05/30/25 WBC, (4.8-10.8) 7.3 X10*3/uL 05/30/25 Plt Count, (160-400) 222 X10*3/uL 05/30/25 Sodium, (135-145) 139 mmol/L 09/25/25 Potassium, (3.3-5.1) 4.8 mmol/L Δ 09/25/25 Chloride, (96-108) 107 mmol/L 09/25/25 Carbon Dioxide, (22-29) 22 mmol/L 09/25/25 BUN, (9-16) 22 mg/dL H 09/25/25 Creatinine, (0.5-1.4) 1.79 mg/dL H 09/25/25 Renal US 09/06/24 Assessment & Plan Assessment & Plan (1) Hypertension complicating diabetes: Code(s): E11.59 - Type 2 diabetes mellitus with other circulatory complications; I15.2 - Hypertension secondary to endocrine disorders Category: Medical (2) Diabetes mellitus with stage 3a chronic kidney disease, without long-term current use of insulin: Code(s): E11.22 - Type 2 diabetes mellitus with diabetic chronic kidney disease; N18.31 - Chronic kidney disease, stage 3a Category: Medical Qualifiers: Diabetes mellitus type: type 2 Qualified Code(s): E11.22 - Type 2 diabetes mellitus with diabetic chronic kidney disease; N18.31 - Chronic kidney disease, stage 3a Plan 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 He has proteinuria. He is on ARB , dose of which has been increased recently to 50 mg with rise in serum creatinine( acceptable) . Earlier I started him on Jardiance 10 mg but he could not afford co pay & he did not get it. His MRI of kidney did not show any mass. He should avoid NSAID's and maintain good hydration. He does not need a renal biopsy now. All these have been discussed in detail. All questions answered & follow up given. Orders: Orders Calcium 3 Months E11.22 - Type 2 diabetes mellitus with diabetic chronic kidney disease, N18.31 - Chronic kidney disease, stage 3a Electrolytes 3 Months E11.22 - Type 2 diabetes mellitus with diabetic chronic kidney disease, N18.31 - Chronic kidney disease, stage 3a Blood Urea Nitrogen 3 Months E11.22 - Type 2 diabetes mellitus with diabetic chronic kidney disease, N18.31 - Chronic kidney disease, stage 3a Creatinine 3 Months E11.22 - Type 2 diabetes mellitus with diabetic chronic kidney disease, N18.31 - Chronic kidney disease, stage 3a Coding Level of Care Code Est Pt Level 4 (50000) Diagnoses Hypertension complicating diabetes E11.59; I15.2 Type 2 diabetes mellitus with stage 3a chronic kidney disease, without long-term current use of insulin E11.22; N18.31 Diabetes mellitus type: type 2
[2025-09-28 10:44] VITALS: BP 140/84; PULSE 81; O2SAT 97; BMI 29.8
== END 2025-09-28 10:54 | disposition home or self-care (01) ==
LOC: HO.HKA 10:38
PROVIDERS: PCP Nurse Practitioner Family; Visit Provider Internal Medicine Nephrology
DX: E11.59 Type 2 diabetes mellitus with other circulatory complications (principal); I15.2 Hypertension secondary to endocrine disorders; E11.22 Type 2 diabetes mellitus with diabetic chronic kidney disease; N18.31 Chronic kidney disease, stage 3a
CPT/HCPCS: 99214